=== PATIENT | male | born 1995 | race Two or more races ===

== ENCOUNTER 2025-02-02 21:38 | Emergency (ER) | payer MEDICAID, SELFPAY ==
[2025-02-02 21:39] VITALS: BMI 28.0
[2025-02-02 22:18] VITALS: BP 140/76; PULSE 100; RESP 18; TEMP 37; O2SAT 96
--- NOTE | 2025-02-02 22:23 | PD.EDRME ---
Rapid Medical Screening Exam RME Arrival date/time: 02/02/25 21:38 Chief Complaint: Abdominal Pain Time Seen by Provider: 02/02/25 22:07 Vital signs: Vital Signs Temperature 98.6 F 02/02/25 22:18 Pulse Rate 100 02/02/25 22:18 Respiratory Rate 18 02/02/25 22:18 Blood Pressure 140/76 H 02/02/25 22:18 Pulse Oximetry (%) 96 02/02/25 22:18 Oxygen Delivery Method Room Air 02/02/25 22:18 E Narrative: N/V today after etoh use. Patient reports last drink was 3 hours ago. Hx of alcohol withdrawal
[2025-02-02 23:05] LABS: Basophils # (Auto) 0.1 Thou/mm3 (0.0-0.2); Basophils % (Auto) 1 % (0-2.5); Eosinophils % (Auto) 0 % (0-10); Hematocrit 41.1 % (41.0-53.0); Hemoglobin 14.4 g/dL (13.5-16.0); Immature Granulocytes % (Auto) 0 % (0-0); Immature Granulocytes Auto 0.02 Thou/mm3 (0.00-0.00); Lymphocytes # (Auto) 3.1 Thou/mm3 (1.0-4.8); Lymphocytes % (Auto) 39 % (10-50); Mean Corpuscular Volume 86 fL (80-100); Monocytes # (Auto) 0.4 Thou/mm3 (0.0-0.8); Monocytes % (Auto) 5 % (0-12); Neutrophils # (Auto) 4.4 Thou/mm3 (1.8-7.7); Neutrophils % (Auto) 55 % (37-80); Nucleated Red Blood Cell % 0 /100 WBC (0); Platelet Count 330 Thou/mm3 (140-440); RDW Standard Deviation 46.4 fL (35.1-43.9); White Blood Count 8.1 Thou/mm3 (3.8-10.6)
--- NOTE | 2025-02-02 23:18 | EDNOTE_ITS ---
ED Abdominal Pain RME/HPI General Chief Complaint: Abdominal Pain Stated complaint: ABD PAIN Time seen by provider: 02/02/25 22:07 Arrival date/time: 02/02/25 21:38 RME / HPI RME / HPI narrative: The patient is a 29-year-old male with significant past medical history of alcohol withdrawal 2/2 alcohol abuse disorder presented with chief complaint of epigastric pain for 6 to 7 hours. He reported that his abdominal pain started around 1 PM, and around 4 PM he had his last alcoholic drink. His abdominal pain worsened, and started having nausea and vomiting and he thought of coming to the ED. He denied any headache, lightheadedness, chest pain, SOB, any changes in bowel or bladder habit, leg swelling, fever or chills. Related Data Previous Rx's ?Medication ?Instructions ?Recorded multivitamin-iron 9 mg-folic acid 1 tab PO QDAY #30 ta bs 02/28/22 400 mcg-calcium and minerals tablet (Thera M Plus (ferrous fumarate)) thiamine mononitrate (vit B1) 100 100 mg PO BID #30 ta bs 02/28/22 mg tablet (Vitamin B-1 (mononitrate)) calcium carbonate (Calcium 600) 600 mg PO QDAY #30 tab s 02/03/25 folic acid 1 mg tablet 1 mg PO QDAY #30 tabs pantoprazole 40 mg tablet,delayed 40 mg PO QDAY #28 ta bs 02/03/25 release thiamine HCl (vitamin B1) 100 mg 100 mg PO BID #60 tab s 02/03/25 tablet Allergies Allergy/AdvReac Type Severity Reaction Status Date / Time No Known Allergies Allergy Verified 03/07/24 14:42 Review of Systems Review of Systems Systems Reviewed: All systems reviewed, normal except as documented Past Medical History Past Medical History CARDIAC: Negative Congestive Heart Failure RESPIRATORY: Negative Chronic Obstructive Pulmonary Disease (COPD) GENITOURINARY: Negative Renal Disease ENDOCRINE: Negative Diabetes Mellitus Type 1 or Diabetes Mellitus Type 2 Social History SMOKING STATUS: Never smoker SUBSTANCE USE: marijuana, crack/cocaine and methamphetamine ALCOHOL: Current ALCOHOL FREQUENCY: 3 or More Drinks per Day (12 24oz beer cans daily) ALCOHOL LAST INTAKE: Hours (ago) (4 PM on 02/02/2025.) Travel History [place] RISK: No ED Exam Narrative Physical exam: General: No acute distress, Alert and Oriented x 3 HEENT: Mildly dry mucous membranes, oropharynx clear Neck: Supple, No masses, No JVD CVS: S1S2 Regular rate and rhythm, No murmurs, rubs or gallops Lungs: Clear to auscultation with no accessory use, no wheeze no rhonchi Abd: Soft, NT/ND, +BS, no organomegaly Ext: No edema, warm and well perfused Skin: No rash Psych: Mildly sober Course Quality Measures none Orders Category Date Time Status EKG (ED ONLY) *Do not use* NOW Care 02/02/25 23:26 Completed EKG (ED Only) Stat Exams 02/02/25 23:26 Ordered Alcohol, Blood Medical Stat Lab 02/02/25 22:45 Completed CBC Stat Lab 02/02/25 22:45 Completed CMP [Comprehensive Metabolic Panel] Stat Lab 02/02/25 22:45 Completed Drug Screen,Urine Stat Lab 02/02/25 23:55 Completed Lipase Stat Lab 02/02/25 22:45 Completed Magnesium Stat Lab 02/02/25 22:45 Completed Troponin I Stat Lab 02/02/25 22:45 Completed UA [Urinalysis] Stat Lab 02/02/25 23:55 Completed Calcium Carbonate Med 02/03/25 00:31 Discontinued 600 mg PO X1 ONE Folic Acid Med 02/03/25 00:40 Discontinued 1 mg PO X1 ONE Hyoscyamine Sulf [Levsin] Med 02/03/25 00:31 Discontinued 0.125 mg PO X1 ONE Pantoprazole [Protonix] Med 02/03/25 00:31 Discontinued 40 mg PO X1 ONE Thiamine [Vitamin B-1] Med 02/03/25 00:40 Discontinued 100 mg PO X1 ONE Vital Signs Vital signs: Vital Signs Temperature 98.6 F 02/02/25 22:18 Pulse Rate 100 02/02/25 22:18 Respiratory Rate 18 02/02/25 22:18 Blood Pressure 140/76 H 02/02/25 22:18 Pulse Oximetry (%) 96 02/02/25 22:18 Oxygen Delivery Method Room Air 02/02/25 22:18 Abdominal Pain MDM MDM Narrative MDM Narrative:: The patient is a 29-year-old male with significant past medical history of alcohol withdrawal 2/2 alcohol abuse disorder presented with chief complaint of epigastric pain for 6 to 7 hours. He reported that his abdominal pain started around 1 PM, and around 4 PM he had his last alcoholic drink. His abdominal pain worsened, and started having nausea and vomiting and he thought of coming to the ED. He denied any headache, lightheadedness, chest pain, SOB, any changes in bowel or bladder habit, leg swelling, fever or chills. On further interviewing, he revealed that he drinks alcohol because he thinks there are a lot of bad people in this world. However, he denies any suicidal or homicidal ideation. His vitals revealed BP 140/76, pulse 100, RR 18, temperature 98.6, saturating 98% on room air. Labs revealed hemoglobin 14.4, white count 8.1, chemistry panel revealed sodium 138, potassium 4.9, blood sugar 136, corrected calcium 8.2, AST/ALT 106/166, troponin less than 0.002, lipase 33, UA negative U tox was negative EtOH level was 366.5. The patient was given thiamine 100 Mg p.o. x 1, folic acid 1 Mg p.o. x 1, pantoprazole 40 Mg p.o. x 1, potassium nine 0.125 Mg p.o. x 1 and calcium carbonate 600 Mg p.o. x 1. He was counseled regarding alcohol cessation, but he reported that he is not ready for quitting alcohol. He was also recommended to follow-up with PCP or get a PCP in the [facility] and follow-up regarding alcohol cessation. Patient data External records reviewed:: [facility] previous records Clinical information provided by:: patient Social determinants that could affect healthcare access:: alcohol use Patient has the following chronic illnesses:: See above How is presenting disease/condition affected by chronic disease/condition?: caused by Evaluation data The following diagnostics were reviewed and interpreted by me:: lab results and EKG tracing(s) Lab and/or radiology exams considered but not ordered:: None Interpretation Summary: See above Medications / Prescriptions Medications or Prescriptions considered but not ordered:: None Medication administrations:: Medication Administration History Discontinued Medications Calcium Carbonate (Calcium Carbonate 600 Mg Tablet) 600 mg PO X1 ONE Stop: 02/03/25 00:32 Last Admin: 02/03/25 00:54 Dose: 600 mg Documented By: NAINA Folic Acid (Folic Acid 1 Mg Tablet) 1 mg PO X1 ONE Stop: 02/03/25 00:41 Last Admin: 02/03/25 00:54 Dose: 1 mg Documented By: PINOR Hyoscyamine (Hyoscyamine Sulf 0.125 Mg Tab.Subl) 0.125 mg PO X1 ONE Stop: 02/03/25 00:32 Last Admin: 02/03/25 00:53 Dose: Not Given Documented By: NAINA Non-Admin Reason: Medication Not Available Pantoprazole Sodium (Pantoprazole 40 Mg Tablet) 40 mg PO X1 ONE Stop: 02/03/25 00:32 Last Admin: 02/03/25 00:54 Dose: 40 mg Documented By: NAINA Thiamine HCl (Thiamine 100 Mg Tablet) 100 mg PO X1 ONE Stop: 02/03/25 00:41 Last Admin: 02/03/25 00:54 Dose: 100 mg Documented By: NAINA See above Consultations Consultation(s) initiated? (list below): No Diagnosis Differential diagnosis abdominal pain: gastroenteritis, pancreatitis and other (Gastritis) Most likely diagnosis given after review of the tests above:: Gastritis Admission Indicated Admission indicated?: not indicated Explain why admission is indicated or not indicated:: Patient is ambulating well, vitals stable, labs were stable. Admission Request Was there a request for admission?: No Disposition Plan Disposition Plan: Discharge Discharge Attestation Discharge Attestation: The patient and all family members were given an opportunity to ask questions and understood the discharge instructions. Discharge instructions specifically effects, indications for sooner follow up or return to the emergency department, and the expected course of current diagnosis. Patient condition: Stable Discharge Plan Plan Patient Disposition: HOME (Self Care) Prescriptions/Referrals Prescriptions/Med Rec: New thiamine HCl (vitamin B1) 100 mg tablet 100 mg PO BID Qty: 60 2RF folic acid 1 mg tablet 1 mg PO QDAY Qty: 30 0RF pantoprazole 40 mg tablet,delayed release (DR/EC) 40 mg PO QDAY Qty: 28 0RF Rx Instructions: Please take the medicine 1 hour before food. calcium carbonate [Calcium 600] 600 mg calcium (1,500 mg) tablet 600 mg PO QDAY Qty: 30 0RF No Action Thera M Plus (ferrous fumarat) 9 mg iron-400 mcg Tablet 1 tab PO QDAY Qty: 30 0RF thiamine mononitrate (vit B1) [Vitamin B-1 (mononitrate)] 100 mg Tablet 100 mg PO BID Qty: 30 0RF Referrals: No Primary/Family,Physician [Primary Care Provider] - In 1 week Problem List Clinical Impression: Alcohol intoxication, Gastritis Patient/Caregiver Discharge Instructions Discharge Activity: activity as tolerated Education Materials: ED Alcohol Intoxication, ED Gastritis (Adult) Additional Instructions: You have been discharged by Dr. Webb with the following recommendations: Please follow-up with your PCP within 1 week of discharge, or call [phone] at [facility] at [id number], [place], [address] to make an appointment. I would request PCP to consider starting the patient on antidepressant or referring to psychiatrist. You have been started on: -Pantoprazole 40 Mg daily for 28 days -Thiamine 100 mg twice daily to be continued -Folic acid 1 Mg daily for 1 month -Calcium carbonate 600 Mg daily for 1 month. Continue taking all other medicines as prescribed -Recommended to return back to emergency department if your symptoms persists or worsens Print Language: Austrian Stand Alone Forms: Robyn Award Info., Patient Portal Info Letter MD Attestation MD Attestation Attestation I, Dr. Awad, have reviewed the history, exam, and assessment of the patient. I have evaluated the patient independently and agree with the plan of care documented by the resident Dr. orozco. All diagnostic studies were reviewed and discussed. I confirm the diagnosis as documented by the resident. I was present during the Medical Decision Making for this patient. The patient?s plan of care was created between myself and the resident and consistent with our discussion of the patient?s case.
[2025-02-02 23:37] LABS: Alanine Aminotransferase 166 U/L (10-49); Albumin, Serum 4.6 gm/dL (3.5-5.0); Albumin/Globulin Ratio 1.4 (1.2-2.2); Alkaline Phosphatase 57 U/L (46-116); Anion Gap 14 (7-16); Aspartate Amino Transferase 106 U/L (0-34); BUN/Creatinine Ratio 6 Ratio (12-20); Bilirubin,Total 0.5 mg/dL (0.3-1.2); Blood Urea Nitrogen < 5 mg/dL (9-23); Calcium 8.2 mg/dL (8.3-10.6); Calcium (Corrected) 8.2 mg/dL (8.5-10.1); Carbon Dioxide 20.9 mMol/L (20.0-31.0); Chloride 103 mMol/L (98-107); Creatinine (Component) 0.9 mg/dL (0.6-1.3); Estimated Creatinine Clearance 131.7 mL/min (>60); Globulin 3.3 gm/dL (2.3-3.5); Glucose 136 mg/dL (74-106); Lipase 33 U/L (12-53); Osmolality,Calculated 274 (275-295); Potassium 4.9 mMol/L (3.4-5.1); Sodium 138 mMol/L (136-145); Total Protein 7.9 gm/dL (5.7-8.2); Troponin I < 0.002 ng/mL (0.0-0.045); eGFR > 60 See Note
[2025-02-03 00:01] LABS: Alcohol, Blood Medical 366.5 mg/dL (0-10.0)
[2025-02-03 00:11] LABS: Collection Type, Urine Clean Catch; WBC,Urine 0 /hpf (0-5)
[2025-02-03 00:16] LABS: Bilirubin,Urine Negative (Negative); Blood,Urine Negative (Negative); Clarity,Urine Clear (Clear/Hazy); Color,Urine Lt-Yellow (Lt Yel-Yel); Glucose, Urine Negative (Negative); Ketones,Urine Negative (Negative); Leukocyte Esterase,Urine Negative (Negative); Nitrite,Urine Negative (Negative); Protein,Urine Negative (Neg - Trace); RBC,Urine < 1 /hpf (0-3); Specific Gravity,Urine 1.009 (1.001-1.035); Squamous Epithelial Cell,Urine < 1 /hpf (0-5); Urobilinogen,Urine Negative mg/dL (0.0-1.0)
[2025-02-03 00:22] LABS: Amphetamine/Methamp Scrn,U Negative (Negative); Barbiturate Screen,Urine Negative (Negative); Benzodiazepines Screen,Urine Negative (Negative); Benzoylecgonine Screen, Ur Negative (Negative); Fentanyl Screen,Urine Negative (Negative); Opiate Screen,Urine Negative (Negative); THC Screen,Urine Negative (Negative)
[2025-02-03] MEDS: FOLIC ACID 1 MG TABLET PO (00:54)
[2025-02-03] MEDS: THIAMINE 100 MG TABLET PO (00:54)
[2025-02-03] MEDS: CALCIUM CARBONATE 600 MG TABLET PO (00:54)
[2025-02-03] MEDS: PANTOPRAZOLE 40 MG TABLET PO (00:54)
== END 2025-02-03 01:21 | disposition home or self-care (01) ==
PROVIDERS: Physician Assistant; Emergency Provider Student in an Organized Health Care Education/Training Program
DX: F10.129 Alcohol abuse with intoxication, unspecified (principal); K29.70 Gastritis, unspecified, without bleeding; Y90.9 Presence of alcohol in blood, level not specified
CPT/HCPCS: 36415; 80053; 80307; 80320; 81001; 83690; 83735; 84484; 85025; 93005; 99283; A9270; G0480

== ENCOUNTER 2025-03-31 10:59 | Emergency (ER) | payer MEDICAID, SELFPAY ==
--- NOTE | 2025-03-31 11:06 | PD.EDABDPN ---
ED Abdominal Pain RME/HPI General Chief Complaint: Nausea/Vomiting/Diarrhea Stated complaint: VOMITING W/ INTERMITTENT ABD PAIN X 3 WKS Time seen by provider: 03/31/25 11:04 Arrival date/time: 03/31/25 10:59 Source: patient Limitations: no limitations RME / HPI RME / HPI narrative: 3 week history of epigastic pain, nausea, and vomiting. He has a long history of ETOH abuse. Last drink was yesterday. Remote history of polysubstance abuse, states he last used drugs including meth 8-9 years ago. MD complaint: abdominal pain Related Data Previous Rx's ?Medication ?Instructions ?Recorded multivitamin-iron 9 mg-folic acid 1 tab PO QDAY #30 tabs 02/28/22 400 mcg-calcium and minerals tablet (Thera M Plus (ferrous fumarate)) thiamine mononitrate (vit B1) 100 100 mg PO BID #30 tabs 02/28/22 mg tablet (Vitamin B-1 (mononitrate)) calcium carbonate (Calcium 600) 600 mg PO QDAY #30 tabs 02/03/25 folic acid 1 mg tablet 1 mg PO QDAY #30 tabs 02/03/25 pantoprazole 40 mg tablet,delayed 40 mg PO QDAY #28 tabs 02/03/25 release thiamine HCl (vitamin B1) 100 mg 100 mg PO BID #60 tabs 02/03/25 tablet Allergies Allergy/AdvReac Type Severity Reaction Status Date / Time No Known Allergies Allergy Verified 03/31/25 11:05 Review of Systems Review of Systems Systems Reviewed: All systems reviewed, normal except as documented ED Exam General Limitations: Present no limitations General appearance: Present alert and anxious Head Head exam: Present atraumatic Eye Eye exam: Present normal appearance, PERRL and EOMI ENT ENT exam: Present normal exam, normal oropharynx and mucous membranes moist Neck Neck exam: Present normal inspection, full ROM and trachea midline Chest Chest inspection: Present normal inspection and symmetric chest wall rise Respiratory Respiratory exam: Present normal lung sounds bilaterally Cardiovascular Cardiovascular exam: Present regular rate, normal rhythm and normal heart sounds Abdominal Exam Abdominal exam: Present soft; Absent guarding or rebound Abdominal tenderness: Present RUQ and mild Extremities Exam Extremities exam: Present normal inspection and full ROM Back Exam Back exam: Present normal inspection and full ROM Neurological Exam Neurological exam: Present alert, oriented X3, normal gait and other (resting tremors present. ) Psychiatric Psychiatric exam: Present normal affect and normal mood Skin Skin exam: Present warm, dry, intact and normal color Course Quality Measures none Orders Category Date Time Status CT Screening NOW Care 03/31/25 14:13 Completed EKG (ED ONLY) *Do not use* NOW Care 03/31/25 11:[address] abdomen pelvis w con Stat Exams 03/31/25 14:13 Ordered EKG (ED Only) Stat Exams 03/31/25 11:32 Draft US abdomen limited Stat Exams 03/31/25 12:06 Completed Alcohol, Blood Medical Stat Lab 03/31/25 11:18 Completed CBC Stat Lab 03/31/25 11:18 Completed CMP [Comprehensive Metabolic Panel] Stat Lab 03/31/25 11:18 Completed Drug Screen,Urine Stat Lab 03/31/25 12:09 Completed Lipase Stat Lab 03/31/25 11:18 Completed Magnesium Stat Lab 03/31/25 11:18 Completed UA, C/S IF [Urinalysis, C/S if Indicated] Stat Lab 03/31/25 12:09 Completed Diazepam [Valium] Med 03/31/25 11:25 Discontinued 5 mg PO X1 ONE Magnesium Sulfate 1 gm Ivpb [Magnesium Sulfate Ivpb] Med 03/31/25 12:03 Discontinued 1 gm in 100 ml IV X1 Ondansetron Odt [Zofran Odt] Med 03/31/25 11:07 Discontinued 4 mg PO X1 ONE Vital Signs Vital signs: Vital Signs Temperature 98.5 F 03/31/25 11:13 Pulse Rate 75 03/31/25 11:13 Respiratory Rate 19 03/31/25 11:13 Blood Pressure 163/109 H 03/31/25 11:13 Pulse Oximetry (%) 99 03/31/25 11:13 Oxygen Delivery Method Room Air 03/31/25 11:13 Abdominal Pain MDM MDM Narrative MDM Narrative:: 29-year-old male with a history of alcoholism is here today with abdominal pain. Initially states his last drink was yesterday. Hospital staff did find an empty beer can in the garbage in his exam room. He then states he drank just prior to his arrival and had an empty can on him. His workup was concerning for a lipase of greater than 3500. This was discussed with the patient and we offered admission. We discussed the need to medically treat this. A CT was also ordered. However the patient declined further care stating he wanted to leave. We had a long detailed conversation regarding his pancreatitis, alcohol abuse, and the need to treat this medically. Patient declined further interventions. He verbalized understanding that he had acute pancreatitis, was at risk also for alcohol withdrawal, that his condition could worsening causing further endorgan dysfunction, worsening pain, and even possibly . Patient is able to answer questions appropriately. He has no slurred speech. He is not responding to any internal stimuli. He does appear to have capacity to make decisions. Case discussed with attending ER physician. Patient data External records reviewed:: [facility] previous records Clinical information provided by:: patient Social determinants that could affect healthcare access:: alcohol use Patient has the following chronic illnesses:: Alcohol abuse How is presenting disease/condition affected by chronic disease/condition?: exacerbated by Evaluation data The following diagnostics were reviewed and interpreted by me:: EKG tracing(s) (Normal sinus rhythm at [address] changes or dynamic T waves) Lab and/or radiology exams considered but not ordered:: n/a Interpretation Summary: Acute alcoholic pancreatitis Medications / Prescriptions Medications or Prescriptions considered but not ordered:: n/a Medication administrations:: Medication Administration History Discontinued Medications Diazepam (Diazepam 5 Mg Tablet) 5 mg PO X1 ONE Stop: 03/31/25 11:26 Last Admin: 03/31/25 11:39 Dose: 5 mg Documented By: MILENA Magnesium Sulfate/Dextrose (Magnesium Sulfate Ivpb) 1 gm in 100 mls @ 100 mls/hr IV X1 ONE Stop: 03/31/25 13:02 Last Infusion: 03/31/25 14:00 Dose: Infused Documented By: Admin: 03/31/25 12:18 Dose: 100 mls/hr Documented By: MILENA Ondansetron HCl (Ondansetron Odt 4 Mg Tabrap) 4 mg PO X1 ONE; Protocol Stop: 03/31/25 11:08 Last Admin: 03/31/25 11:39 Dose: 4 mg Documented By: MILENA See above Consultations Consultation(s) initiated? (list below): No Diagnosis Differential diagnosis abdominal pain: abdominal pain, constipation, gastroenteritis and pancreatitis Most likely diagnosis given after review of the tests above:: Alcoholic pancreatitis Admission Indicated Admission indicated?: indicated Admission Request Was there a request for admission?: No Disposition Plan Disposition Plan: other (specify) (Patient is leaving AGAINST MEDICAL ADVICE) Discharge Plan Plan Patient Disposition: Left Against Medical Advice Prescriptions/Referrals Prescriptions/Med Rec: No Action Thera M Plus (ferrous fumarat) 9 mg iron-400 mcg Tablet 1 tab PO QDAY Qty: 30 0RF thiamine mononitrate (vit B1) [Vitamin B-1 (mononitrate)] 100 mg Tablet 100 mg PO BID Qty: 30 0RF thiamine HCl (vitamin B1) 100 mg tablet 100 mg PO BID Qty: 60 2RF folic acid 1 mg tablet 1 mg PO QDAY Qty: 30 0RF pantoprazole 40 mg tablet,delayed release (DR/EC) 40 mg PO QDAY Qty: 28 0RF Rx Instructions: Please take the medicine 1 hour before food. calcium carbonate [Calcium 600] 600 mg calcium (1,500 mg) tablet 600 mg PO QDAY Qty: 30 0RF Referrals: No Primary/Family,Physician [Primary Care Provider] - In 1 week Problem List Clinical Impression: Alcohol withdrawal Patient/Caregiver Discharge Instructions Additional Instructions: - You have severe, acute, pancreatitis. This needs medical interventions. - Please return to emergency room anytime for any changes for further assistance. Print Language: Occitan
[2025-03-31 11:13] VITALS: BP 163/109; PULSE 75; RESP 19; TEMP 36.9; O2SAT 99; BMI 26.2
[2025-03-31 11:23] VITALS: BP 165/117; PULSE 79; RESP 18; O2SAT 99
--- NOTE | 2025-03-31 11:23 | PC.NURSE ---
PT HERE WITH C/O ABD PAIN ON AND OFF FOR 21 DAYS AND INABILITY TO SLEEP UNLESS DRINKING ETOH.
--- NOTE | 2025-03-31 11:32 | EKG_ITS ---
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
[2025-03-31 11:36] LABS: Basophils # (Auto) 0.1 Thou/mm3 (0.0-0.2); Basophils % (Auto) 1 % (0-2.5); Eosinophils # (Auto) 0.2 Thou/mm3 (0.0-0.5); Eosinophils % (Auto) 1 % (0-10); Hematocrit 44.5 % (41.0-53.0); Hemoglobin 15.5 g/dL (13.5-16.0); Immature Granulocytes Auto 0.04 Thou/mm3 (0.00-0.00); Lymphocytes # (Auto) 2.9 Thou/mm3 (1.0-4.8); Lymphocytes % (Auto) 22 % (10-50); Mean Corpuscular HGB Conc 34.8 g/dl (31.0-37.0); Mean Corpuscular Hemoglobin 30.0 pg (25.0-35.0); Mean Corpuscular Volume 86 fL (80-100); Monocytes # (Auto) 0.9 Thou/mm3 (0.0-0.8); Monocytes % (Auto) 7 % (0-12); Neutrophils # (Auto) 9.2 Thou/mm3 (1.8-7.7); Neutrophils % (Auto) 70 % (37-80); Nucleated Red Blood Cell # 0.00 Thou/mm3 (0.00-0.00); Nucleated Red Blood Cell % 0 /100 WBC (0); Platelet Count 364 Thou/mm3 (140-440); RDW Standard Deviation 44.5 fL (35.1-43.9); Red Blood Count 5.17 Miln/mm3 (4.50-5.90); White Blood Count 13.2 Thou/mm3 (3.8-10.6)
[2025-03-31] MEDS: ONDANSETRON ODT 4 MG TABRAP PO (11:39)
[2025-03-31] MEDS: DIAZEPAM 5 MG TABLET PO (11:39)
[2025-03-31 12:00] LABS: Alanine Aminotransferase 56 U/L (10-49); Albumin, Serum 4.7 gm/dL (3.5-5.0); Albumin/Globulin Ratio 1.4 (1.2-2.2); Alcohol, Blood Medical 90.3 mg/dL (0-10.0); Alkaline Phosphatase 76 U/L (46-116); Anion Gap 9 (7-16); Aspartate Amino Transferase 48 U/L (0-34); BUN/Creatinine Ratio 6 Ratio (12-20); Bilirubin,Total 0.5 mg/dL (0.3-1.2); Blood Urea Nitrogen 5 mg/dL (9-23); Calcium 9.3 mg/dL (8.3-10.6); Calcium (Corrected) 9.3 mg/dL (8.5-10.1); Carbon Dioxide 27.1 mMol/L (20.0-31.0); Chloride 101 mMol/L (98-107); Creatinine (Component) 0.9 mg/dL (0.6-1.3); Estimated Creatinine Clearance 121.1 mL/min (>60); Globulin 3.3 gm/dL (2.3-3.5); Glucose 123 mg/dL (74-106); Magnesium 1.4 mg/dL (1.6-2.6); Osmolality,Calculated 272 (275-295); Potassium 3.8 mMol/L (3.4-5.1); Sodium 137 mMol/L (136-145); Total Protein 8.0 gm/dL (5.7-8.2); eGFR > 60 See Note
[2025-03-31 12:01] VITALS: BP 146/108; PULSE 69; RESP 21; TEMP 36.8; O2SAT 97
--- NOTE | 2025-03-31 12:06 | XR_ITS ---
Examination: Abdomen sonogram, Limited Date and time of exam: Pain nausea vomiting beginning 3 weeks ago Date and time: April 10, 2025, 12:48 PM Technique: Real-time trejo scale transabdominal sonographic images of the upper abdomen obtained. Findings: Normal gallbladder. Normal common bile duct 0.2 cm Pancreas is obscured by bowel gas Mild hepatomegaly 16.6 cm fatty infiltration Normal hepatopedal portal venous flow Patent IVC Impression: Normal gallbladder Normal common bile duct
[2025-03-31 12:36] LABS: Collection Type, Urine Voided; RBC,Urine 0 /hpf (0-3); Squamous Epithelial Cell,Urine 0 /hpf (0-5); WBC,Urine 0 /hpf (0-5)
[2025-03-31 13:12] LABS: Bacteria,Urine Rare; Bilirubin,Urine Negative (Negative); Blood,Urine Negative (Negative); Clarity,Urine Clear (Clear/Hazy); Color,Urine Lt-Yellow (Lt Yel-Yel); Culture Indicated,Urine Not Indicated; Glucose, Urine Negative (Negative); Ketones,Urine Negative (Negative); Leukocyte Esterase,Urine Negative (Negative); Nitrite,Urine Negative (Negative); PH,Urine 5.5 (5.0-7.0); Protein,Urine Trace (Neg - Trace); Specific Gravity,Urine 1.017 (1.001-1.035); Urobilinogen,Urine Negative mg/dL (0.0-1.0)
[2025-03-31 13:26] LABS: Amphetamine/Methamp Scrn,U Negative (Negative); Barbiturate Screen,Urine Negative (Negative); Benzodiazepines Screen,Urine Negative (Negative); Benzoylecgonine Screen, Ur Negative (Negative); Fentanyl Screen,Urine Negative (Negative); Opiate Screen,Urine Negative (Negative); THC Screen,Urine Negative (Negative)
[2025-03-31 14:00] VITALS: BP 128/98; PULSE 83; RESP 19; O2SAT 97
[2025-03-31 14:07] LABS: Lipase > 3500 U/L (12-53)
--- NOTE | 2025-03-31 14:16 | PC.NURSE ---
when patient was placed in room patient throw away an empty beer can.
--- NOTE | 2025-03-31 14:47 | PC.NURSE ---
Patient requesting to leave against medical advice. Patient alert and oriented x 4. Patient states he is not ready to quit drinking at this time. Per Mary Reina PA states patient has the mental capacity to make his own decrions. Educated patient on risks of leaving the ER without completing his treatment including possible , patient verbalizes understanding and states I wanna leave AMA form signed and placed on chart.
== END 2025-03-31 14:47 | disposition left against medical advice (07) ==
PROVIDERS: Emergency Provider Physician Assistant Medical
DX: F10.939 Alcohol use, unspecified with withdrawal, unspecified (principal); Z53.29 Procedure and treatment not carried out because of patient's decision for other reasons
CPT/HCPCS: 36415; 76705; 80053; 80307; 80320; 81001; 83690; 83735; 85025; 93005; 96365; 96366; 99283; J3475; Q0162; A9270; G0480

== ENCOUNTER 2025-04-04 22:32 | Inpatient (IN) | payer MEDICAID, SELFPAY ==
[2025-04-04 22:35] VITALS: BP 126/86; PULSE 90; RESP 18; TEMP 36.9; O2SAT 97; BMI 27.3
--- NOTE | 2025-04-04 23:41 | EDNOTE_ITS ---
ED Alcohol RME/HPI General Chief Complaint: General Adult/Misc Complain Stated Complaint: ALCOHOL INTOXICATION Time Seen by Provider: 04/04/25 23:15 Arrival date/time: 04/04/25 22:32 RME / HPI RME / HPI narrative: This section includes all my notes and documentations, including HPI, PE, and ED course. Noam Kim MD HPI: 29yo male here for possible abdominal pain and vomiting. Difficult to understand the patient, probably due to alcohol intoxication. Patient was here several days ago with alcohol intoxication and acute pancreatitis with lipase over 3500. Patient left AMA. Reports no SI or HI or hallucinations. No other complaints. ROS: All negative except as documented in HPI. Physical Exam: General: Appears severely intoxicated. Eyes: Conjunctivae and lids clear. PERRL. EOMI. ENT: No nasal congestion. Neck: Supple. Heart: Sinus tachycardia noted. Lungs: No respiratory distress. Good air movement. No rhonchi, wheezing, rales. Abdomen: Soft with tenderness, difficult to localize. Decreased bowel sounds. No obvious distension. No obvious rebound or guarding. Skin: Warm and dry. Neuro: Difficult assessment due to probable severe intoxication. I reviewed all diagnostic test results. My review of the CT abdomen pelvis report is acute pancreatitis. Blood tests remarkable for Blood Alcohol 405. At this point, diagnoses include pancreatitis and alcohol intoxication. Treatment here included NS, Ativan, Zofran, and Thiamine. I discussed the case with our hospitalist. About the presentation and exam and diagnostics and treatments here. And need of further care in the hospital. Will accept the patient. Noam Kim MD Related Data Home Medications ?Medication ?Instructions ?Recorded ?Confirmed No Known Home Medications 04/05/2503/19 Allergies Allergy/AdvReac Type Severity Reaction Status Date / Time No Known Allergies Allergy Verified 04/04/25 22:38 Review of Systems Review of Systems Systems Reviewed: All systems reviewed, normal except as documented Past Medical History Past Medical History NEUROLOGIC: Positive Neurological Disorders (DT'S) CARDIAC: Negative Congestive Heart Failure RESPIRATORY: Negative Chronic Obstructive Pulmonary Disease (COPD) GENITOURINARY: Negative Renal Disease ENDOCRINE: Negative Diabetes Mellitus Type 1 or Diabetes Mellitus Type 2 Social History SMOKING STATUS: Never smoker SUBSTANCE USE: marijuana, crack/cocaine and methamphetamine ED Exam Narrative Physical exam: As noted in HPI. Course Quality Measures none Orders Category Date Time Status Bedside COVID-19 Antigen Test NOW Care 04/04/25 23:44 Active Bedside Influenza A&B Antigen Test NOW Care 04/04/25 23:44 Completed Saline [Insert IV] NOW Care 04/04/25 23:[address] abdomen pelvis wo con Stat Exams 04/04/25 23:45 Taken Acetaminophen Stat Lab 04/04/25 23:59 Completed Alcohol, Blood Medical Stat Lab 04/04/25 23:59 Completed Ammonia Stat Lab 04/04/25 23:59 Completed Amylase Stat Lab 04/04/25 23:59 Completed BNP [B-Type Natriuretic Peptide] Stat Lab 04/04/25 23:59 Completed Beta Hydroxybutyrate Stat Lab 04/04/25 23:59 Completed Bilirubin,Direct Stat Lab 04/04/25 23:59 Completed Blood Culture (Lab) Stat Lab 04/04/25 23:59 Received CBC Stat Lab 04/04/25 23:59 Completed CK [Creatine Kinase] Stat Lab 04/04/25 23:59 Completed CMP [Comprehensive Metabolic Panel] Stat Lab 04/04/25 23:59 Completed CRP [C-Reactive Protein] Stat Lab 04/04/25 23:59 Completed Drug Screen,Urine Stat Lab 04/05/25 02:21 Completed ESR [Sed Rate (ESR)] Stat Lab 04/04/25 23:59 Completed Free T4 (Free Thyroxine) Stat Lab 04/04/25 23:59 Completed Lactate (Lactic Acid) Stat Lab 04/04/25 23:59 Completed Lipase Stat Lab 04/04/25 23:59 Completed Magnesium Stat Lab 04/04/25 23:59 Completed PT [Prothrombin Time with INR] Stat Lab 04/04/25 23:59 Completed PTT [Partial Thromboplastin Time] Stat Lab 04/04/25 23:59 Completed Procalcitonin Stat Lab 04/04/25 23:59 Completed Salicylate Stat Lab 04/04/25 23:59 Completed TSH [Thyroid Stimulating Hormone] Stat Lab 04/04/25 23:59 Completed VBG [Venous Blood Gas] Stat Lab 04/04/25 23:59 Completed LORazepam [Ativan Inj] Med 04/04/25 23:44 Discontinued 2 mg IVP X1 ONE Ondansetron Inj [Zofran Inj] Med 04/04/25 23:44 Discontinued 4 mg IVP X1 ONE Sodium Chloride 0.9% 1000 ml [Ns] 1,000 ml Med 04/04/25 23:44 Discontinued IV 999 mls/hr Thiamine Inj [Vitamin B-1 Inj] Med 04/04/25 23:44 Discontinued 100 mg IVP X1 ONE Vital Signs Vital signs: Vital Signs Temperature 98.5 F 04/04/25 22:35 Pulse Rate 90 04/04/25 22:35 Respiratory Rate 18 04/04/25 22:35 Blood Pressure 126/86 H 04/04/25 22:35 Pulse Oximetry (%) 97 04/04/25 22:35 Oxygen Delivery Method Room Air 04/04/25 22:35 Discharge Plan Plan Patient Disposition: Admit Acute Care w/in Hospital Problem List Clinical Impression: Pancreatitis, Alcohol intoxication Alcohol MDM Narrative MDM Narrative: 29yo male here for possible abdominal pain and vomiting. Difficult to understand the patient, probably due to alcohol intoxication. Patient was here several days ago with alcohol intoxication and acute pancreatitis with lipase over 3500. Patient left AMA. Reports no SI or HI or hallucinations. No other complaints. Patient data External records reviewed:: [facility] previous records (Per chart review, patient was seen here on 03/31/25 for alcohol withdrawal.) Clinical information provided by:: patient Social determinants that could affect healthcare access:: alcohol use Patient has the following chronic illnesses:: none How is presenting disease/condition affected by chronic disease/condition?: no chronic disease Evaluation data The following diagnostics were reviewed and interpreted by me:: lab results and radiology exam(s) Lab and/or radiology exams considered but not ordered:: none Interpretation Summary: I reviewed all diagnostic test results. My review of the CT abdomen pelvis report is acute pancreatitis. Blood tests remarkable for Blood Alcohol 405. Medications / Prescriptions Medications or Prescriptions considered but not ordered:: none Medication administrations:: Medication Administration History Chlordiazepoxide HCl (Chlordiazepoxide Hcl 25 Mg Capsule) 25 mg PO Q6HR PRN PRN Reason: CIWA >9 Stop: 04/08/25 02:11 Cyanocobalamin (Cyanocobalamin 500 Mcg Tablet) 500 mcg PO QDAY [facility] Stop: 05/05/25 08:59 Folic Acid (Folic Acid 1 Mg Tablet) 1 mg PO QDAY [facility] Stop: 05/05/25 08:59 Lactated Ringer's (Lactated Ringers) 1,000 mls @ 150 mls/hr IV .Q6H40M [facility] Stop: 04/05/25 15:51 Last Admin: 04/05/25 03:11 Dose: 150 mls/hr Documented By: Ketorolac Tromethamine (Ketorolac Inj 30 Mg/Ml Vial) 30 mg IVP Q6H PRN PRN Reason: PAIN SCALE 4-6 (Moderate Stop: 04/10/25 02:21 Lorazepam (Lorazepam 0.5 Mg Tablet) 1 mg PO Q4HR PRN PRN Reason: CIWA SCORE 7-11 Stop: 04/10/25 02:10 Lorazepam (Lorazepam 0.5 Mg Tablet) 0.5 mg PO Q4HR PRN PRN Reason: CIWA Score 2-6 Stop: 04/10/25 02:10 Lorazepam (Lorazepam 0.5 Mg Tablet) 2 mg PO Q4HR PRN PRN Reason: CIWA SCORE 12-15 Stop: 04/10/25 02:10 Morphine Sulfate (Morphine Sulf Inj 10 Mg/Ml Vial) 2 mg IVP Q1H PRN PRN Reason: PAIN SCALE 7-10 (Severe Ondansetron HCl (Ondansetron Inj 2 Mg/Ml Inj 2 Ml) 4 mg IVP Q6H PRN; Protocol PRN Reason: NAUSEA OR VOMITING Stop: 05/05/25 02:04 Thiamine HCl (Thiamine 100 Mg Tablet) 100 mg PO QDAY [facility] Stop: 05/05/25 08:59 Discontinued Medications Sodium Chloride (Ns) 1,000 mls @ 999 mls/hr IV .Q1H1M ONE Stop: 04/05/25 00:44 Last Infusion: 04/05/25 01:45 Dose: Infused Documented By: Admin: 04/05/25 00:17 Dose: 999 mls/hr Documented By: Lorazepam (Lorazepam 2 Mg/Ml Vial) 2 mg IVP X1 ONE Stop: 04/04/25 23:45 Last Admin: 04/05/25 00:18 Dose: 2 mg Documented By: Ondansetron HCl (Ondansetron Inj 2 Mg/Ml Inj 2 Ml) 4 mg IVP X1 ONE; Protocol Stop: 04/04/25 23:45 Last Admin: 04/05/25 00:19 Dose: 4 mg Documented By: Thiamine HCl (Thiamine Inj 100 Mg/Ml Vial 2 Ml) 100 mg IVP X1 ONE Stop: 04/04/25 23:45 Last Admin: 04/05/25 00:18 Dose: 100 mg Documented By: Tramadol HCl (Tramadol Hcl 50 Mg Tablet) 50 mg PO Q4HR PRN PRN Reason: PAIN Stop: 04/10/25 02:21 From me, patient received NS, Ativan, Zofran, Thiamine. Consultations Consultation(s) initiated? (list below): Yes Consultation #1 (Physician, Specialty, Details): I discussed the case with our hospitalist. About the presentation and exam and diagnostics and treatments here. And need of further care in the hospital. Will accept the patient. Diagnosis Differential diagnosis alcohol: alcohol withdrawal delirium, hypomagnesemia, alcohol intoxication, alcohol ketoacidosis, alcohol withdrawal syndrome and alcohol withdrawal seizure Most likely diagnosis given after review of the tests above:: Acute pancreatitis and alcohol intoxication. Admission Indicated Admission indicated?: indicated Explain why admission is indicated or not indicated:: Acute pancreatitis Admission Request Was there a request for admission?: Yes Admission Attestation Admission request attestation: Discussed case with Hospitalist service regarding admission. Discussed patients ED course, exam findings, labs, and radiology results. The Hospitalist [agrees] to accept the patient for admission. Disposition Plan Disposition Plan: Admit
--- NOTE | 2025-04-04 23:45 | XR_ITS ---
Examination: CT abdomen and pelvis without contrast. Coronal 3-D reconstructions. Sagittal 2-D reconstructions. Date and time of exam:April 05, 2025 0009 hours Indications long onset abdominal pain beginning 2 weeks ago CTDI: vol (mGy): 7.35 DLP: (mGycm): 755 Technique: Axial images of the abdomen have been obtained, 3 mm slice thickness Intravenous contrast material has not been administered. Low dose protocols were performed. One or more of the following dose reduction techniques were used; automated exposure control, adjustment of the mA and/or KV according to patient size, use of iterative reconstruction technique. Findings: No focal liver or splenic lesions No gallstones Diffusely enlarged pancreas with surrounding edema No pseudocyst No renal or ureteral calculi, no hydronephrosis Normal appendix No prostatomegaly Urinary bladder intact Osseous structures intact IMPRESSION: Acute pancreatitis
[2025-04-05] VITALS (9 sets, daily range): BP systolic 111–146; BP diastolic 77–111; PULSE 55–106; RESP 14–18; TEMP 36.2–37; O2SAT 93–100; BMI 27.3
[2025-04-05] MEDS: SODIUM CHLORIDE 0.9% 1000 ML 1,000 ML 999 ML IV (00:17)
[2025-04-05] MEDS: THIAMINE INJ 100 MG/ML VIAL 2 ML IVP (00:18)
[2025-04-05] MEDS: LORazepam 2 MG/ML VIAL IVP ×3 (00:18→20:50)
[2025-04-05 00:19] LABS: Base Excess, Venous 1 (-3-3); Lactate (Lactic Acid) 1.8 mMol/L (0.4-2.0); O2 Saturation, Venous 94 % (96-97); PCO2, Venous 38 mmHg (36-56); PO2, Venous 70 mmHg (15-58); pH, Venous 7.43 (7.33-7.66)
[2025-04-05] MEDS: ONDANSETRON INJ 2 MG/ML INJ 2 ML 4 MG IVP (00:19)
[2025-04-05 00:27] LABS: Basophils # (Auto) 0.1 Thou/mm3 (0.0-0.2); Basophils % (Auto) 1 % (0-2.5); Beta Hydroxybutyrate 0.0 mmol/L (<0.6); Eosinophils # (Auto) 0.4 Thou/mm3 (0.0-0.5); Eosinophils % (Auto) 6 % (0-10); Hematocrit 38.9 % (41.0-53.0); Hemoglobin 14.0 g/dL (13.5-16.0); Immature Granulocytes Auto 0.02 Thou/mm3 (0.00-0.00); Lymphocytes # (Auto) 2.9 Thou/mm3 (1.0-4.8); Lymphocytes % (Auto) 45 % (10-50); Mean Corpuscular HGB Conc 36.0 g/dl (31.0-37.0); Mean Corpuscular Hemoglobin 30.0 pg (25.0-35.0); Mean Corpuscular Volume 83 fL (80-100); Monocytes # (Auto) 0.5 Thou/mm3 (0.0-0.8); Monocytes % (Auto) 7 % (0-12); Neutrophils # (Auto) 2.6 Thou/mm3 (1.8-7.7); Neutrophils % (Auto) 40 % (37-80); Nucleated Red Blood Cell # 0.00 Thou/mm3 (0.00-0.00); Nucleated Red Blood Cell % 0 /100 WBC (0); Platelet Count 238 Thou/mm3 (140-440); RDW Standard Deviation 43.8 fL (35.1-43.9); Red Blood Count 4.67 Miln/mm3 (4.50-5.90); White Blood Count 6.4 Thou/mm3 (3.8-10.6)
[2025-04-05 00:57] LABS: B-Type Natriuretic Peptide < 20 pg/mL (0-100); INR 1.0 (0.9-1.3); Partial Thromboplastin Time 28.2 Seconds (22.0-36.0); Prothrombin Time 10.9 Seconds (9.0-12.2)
[2025-04-05 00:58] LABS: Ammonia 11 uMol/L (11-32)
--- NOTE | 2025-04-05 00:59 | PC.NURSE ---
PT AAO X 4, PT RESP EVEN AND UNLABORED. PT PRESENTS TO ED WITH C/O ETOH, PT DENIES SI OR HI TO THIS NURSE AND TO DR RINALDI. PT STATES HIS LAST DRINK WAS 04/04/25 ABOUT 1 PM.
[2025-04-05 01:01] LABS: Acetaminophen < 2.0 mcg/mL (10.0-20.0); Alanine Aminotransferase 32 U/L (10-49); Albumin, Serum 4.3 gm/dL (3.5-5.0); Albumin/Globulin Ratio 1.4 (1.2-2.2); Alkaline Phosphatase 70 U/L (46-116); Amylase 87 U/L (30-118); Anion Gap 10 (7-16); Aspartate Amino Transferase 37 U/L (0-34); BUN/Creatinine Ratio 6 Ratio (12-20); Bilirubin,Direct 0.1 mg/dL (0.0-0.3); Bilirubin,Total 0.3 mg/dL (0.3-1.2); Blood Urea Nitrogen < 5 mg/dL (9-23); C-Reactive Protein 0.6 mg/dL (0.0-0.9); Calcium 8.7 mg/dL (8.3-10.6); Calcium (Corrected) 8.7 mg/dL (8.5-10.1); Carbon Dioxide 23.4 mMol/L (20.0-31.0); Chloride 105 mMol/L (98-107); Creatine Kinase 174 U/L (34-171); Creatinine (Component) 0.8 mg/dL (0.6-1.3); Estimated Creatinine Clearance 131.8 mL/min (>60); Free T4 (Free Thyroxine) 1.20 ng/dL (0.89-1.76); Globulin 3.1 gm/dL (2.3-3.5); Glucose 116 mg/dL (74-106); Lipase 52 U/L (12-53); Magnesium 2.0 mg/dL (1.6-2.6); Osmolality,Calculated 273 (275-295); Potassium 3.8 mMol/L (3.4-5.1); Procalcitonin < 0.04 ng/ml (0.0-0.49); Salicylate < 3.0 mg/dL; Sodium 138 mMol/L (136-145); Thyroid Stimulating Hormone 2.66 uIU/mL (0.55-4.78); Total Protein 7.4 gm/dL (5.7-8.2); eGFR > 60 See Note
[2025-04-05 01:03] LABS: Alcohol, Blood Medical 405.0 mg/dL (0-10.0)
[2025-04-05 01:05] LABS: Sed Rate (ESR) 19 mm/hr (0-15)
--- NOTE | 2025-04-05 01:15 | PRELIM_ITS ---
CT scan of the abdomen and pelvis without intravenous contrast (axial sections with sagittal and coronal reformats) April 05, 2025 at 0009 hours Clinical History: Abdominal pain. Comparison: None. Findings: The lung bases are clear. The liver, gallbladder, spleen, kidneys and adrenals are unremarkable on this noncontrast study. Peripancreatic fat stranding. No pancreatic ductal dilatation. No evidence of bowel obstruction. The appendix is within normal limits. There is no mesenteric or retroperitoneal adenopathy. The urinary bladder is unremarkable. There is no free fluid or free air. The osseous structures are unremarkable. Impression: Acute pancreatitis. Report Electronically Signed By: Isaiah Hwang 04/05/2025 1:14:42 AM [EST]
[2025-04-05 02:49] LABS: Collection Type, Urine Clean Catch; Squamous Epithelial Cell,Urine 0 /hpf (0-5); WBC,Urine 0 /hpf (0-5)
[2025-04-05 02:59] LABS: Amphetamine/Methamp Scrn,U Negative (Negative); Barbiturate Screen,Urine Negative (Negative); Benzodiazepines Screen,Urine Negative (Negative); Benzoylecgonine Screen, Ur Negative (Negative); Fentanyl Screen,Urine Negative (Negative); Opiate Screen,Urine Negative (Negative); THC Screen,Urine Negative (Negative)
[2025-04-05] MEDS: RINGERS LACTATED 1000 ML 1,000 ML 150 ML IV ×2 (03:11→10:07)
--- NOTE | 2025-04-05 03:16 | PC.NURSE ---
0310 REPORT CALLED TO MAHOGANY DORSEY AT THIS TIME.
[2025-04-05 03:21] LABS: Vitamin B12 397 pg/mL (211-911)
--- NOTE | 2025-04-05 04:13 | ESHP_ITS ---
Documentation for date of: 04/05/25 [facility] History of Present Illness History of present illness: Sukhiwnder Bey is a 29-year-old M with a PMH of alcohol use disorder, alcohol withdrawal without seizures, methamphetamine use, and left knee tumor since childhood who presents today with acute pancreatitis and alcohol intoxication. Patient was inebriated during the interview and had difficulty understanding questions and answering them in a coherent manner. From what this report writer could gather, he did not know why he was in the hospital but thinks that his dad sent him here. He said that he had no current pain or complaints except for not being able to sleep for 5 days which is what caused him to drink so that he could put himself to sleep. In the ED, vitals showed: BP 126/86 HR 90 RR 18 Temp 98.5 SpO2 97% on room air ED Course: CBC was unremarkable. CMP showed slightly elevated creatine kinase 174 but was otherwise unremarkable. Utox showed a significantly elevated urine ethyl alcohol 405.0. Imaging: Noncontrast CTAP, on preliminary read, showed acute pancreatitis. In the ED, patient was given 1 L NS bolus x1, IV lorazepam 2 mg x1, IV thiamine 100 mg x1, IV Zofran 4 mg x1, and started on 1 L LR maintenance fluid at 150 mL/hr x2. Patient was admitted for the work-up and management of acute pancreatitis and alcohol withdrawal symptoms. Review of Systems Review of Systems Systems Reviewed: All systems reviewed, normal except as documented ROS Unobtainable: unobtainable due to mental status (patient was inebriated and uncooperative during questioning) Past Medical History Past Medical History NEUROLOGIC: Positive Neurological Disorders CARDIAC: Negative Congestive Heart Failure RESPIRATORY: Negative Chronic Obstructive Pulmonary Disease (COPD) GENITOURINARY: Negative Renal Disease ENDOCRINE: Negative Diabetes Mellitus Type 1 or Diabetes Mellitus Type 2 Social History SMOKING STATUS: Never smoker SUBSTANCE USE: marijuana, crack/cocaine and methamphetamine ALCOHOL: Current ALCOHOL FREQUENCY: 3 or More Drinks per Day (12 24oz beer cans daily) ALCOHOL LAST INTAKE: Hours (ago) and Days (ago) Travel History EBOLA RISK: No Past Medical History Comments PMH COMMENT: Unable to be obtained due to lack of patient cooperation and/or inebriated status. Exam Vital Signs Temp Pulse Resp BP Pulse Ox O2 Del Method 98.6 F 80 14 120/77 100 Room Air 04/05/25 03:27 04/05/25 03:27 04/05/25 03:27 04/05/25 03:27 04/05/25 03:27 04/05/25 03:27 Narrative Exam Physical Exam: General: Seemingly drunk and drowsy, no acute distress. Skin: Warm, dry, intact, no obvious rash. Head: Normocephalic, atraumatic. Eye: Normal conjunctiva, PERRL. Throat: Oral mucosa moist. No obvious lesions in oropharynx. Cardiovascular: Regular rate and rhythm, no murmur, +S1/S2. Respiratory: Lungs are clear to auscultation, respirations unlabored, no crackles, no wheezing. Gastrointestinal: Tenderness to palpation of RUQ and RLQ abdomen. Soft, non- distended. No guarding or rebound tenderness. Extremities: No edema, no cyanosis, no clubbing. 2+ radial pulse bilaterally, 2+ posterior tibial pulse bilaterally. Neuro: No asterixis. No focal deficits observed. Conversant, moving all extremities. No overt cerebellar signs/incoordination. Psychiatric: Slurred speech, at times uncooperative, disorganized speech. Results: Labs 04/04/25 23:59 04/04/25 23:59 Labs: Short CBC 04/04/25 Range/Units 23:59 WBC 6.4 D (3.8-10.6) Thou/mm3 Hgb 14.0 (13.5-16.0) g/dL Hct 38.9 L (41.0-53.0) % Plt Count 238 D (140-440) Thou/mm3 BMP 04/04/25 23:59 Sodium 138 Potassium 3.8 Chloride 105 Carbon Dioxide 23.4 BUN < 5 L Creatinine 0.8 Glucose 116 H Calcium 8.7 Cardiac Enzymes 04/04/25 Range/Units 23:59 Total Creatine Kinase 174 H (34-171) U/L Liver Function 04/04/25 Range/Units 23:59 Total Bilirubin 0.3 (0.3-1.2) mg/dL Direct Bilirubin 0.1 (0.0-0.3) mg/dL AST 37 H (0-34) U/L ALT 32 (10-49) U/L Alkaline Phosphatase 70 (46-116) U/L Albumin 4.3 (3.5-5.0) gm/dL ABG Interpretation ABG results: 04/04/25 23:59 VBG pH 7.43 VBG pCO2 38 VBG pO2 70 H VBG Base Excess 1 Quality Measures Quality Measures none Medications Home Medications and Allergies Home Medications ?Medication ?Instructions ?Recorded ?Confirmed ?Type No Known Home Medications 04/05/2503/19 History Allergies Allergy/AdvReac Type Severity Reaction Status Date / Time No Known Allergies Allergy Verified 04/04/25 22:38 Visit Medications Chlordiazepoxide HCl (Chlordiazepoxide Hcl 25 Mg Capsule) 25 mg PO Q6HR PRN PRN Reason: CIWA >9 Stop: 04/08/25 02:11 Cyanocobalamin (Cyanocobalamin 500 Mcg Tablet) 500 mcg PO QDAY [facility] Stop: 05/05/25 08:59 Folic Acid (Folic Acid 1 Mg Tablet) 1 mg PO QDAY [facility] Stop: 05/05/25 08:59 Lactated Ringer's (Lactated Ringers) 1,000 mls @ 150 mls/hr IV .Q6H40M [facility] Stop: 04/05/25 15:51 Last Admin: 04/05/25 03:11 Dose: 150 mls/hr Ketorolac Tromethamine (Ketorolac Inj 30 Mg/Ml Vial) 30 mg IVP Q6H PRN PRN Reason: PAIN SCALE 4-6 (Moderate Stop: 04/10/25 02:21 Lorazepam (Lorazepam 0.5 Mg Tablet) 1 mg PO Q4HR PRN PRN Reason: CIWA SCORE 7-11 Stop: 04/10/25 02:10 Lorazepam (Lorazepam 0.5 Mg Tablet) 0.5 mg PO Q4HR PRN PRN Reason: CIWA Score 2-6 Stop: 04/10/25 02:10 Lorazepam (Lorazepam 0.5 Mg Tablet) 2 mg PO Q4HR PRN PRN Reason: CIWA SCORE 12-15 Stop: 04/10/25 02:10 Morphine Sulfate (Morphine Sulf Inj 10 Mg/Ml Vial) 2 mg IVP Q1H PRN PRN Reason: PAIN SCALE 7-10 (Severe Ondansetron HCl (Ondansetron Inj 2 Mg/Ml Inj 2 Ml) 4 mg IVP Q6H PRN; Protocol PRN Reason: NAUSEA OR VOMITING Stop: 05/05/25 02:04 Thiamine HCl (Thiamine 100 Mg Tablet) 100 mg PO QDAY [facility] Stop: 05/05/25 08:59 Discontinued Medications Sodium Chloride (Ns) 1,000 mls @ 999 mls/hr IV .Q1H1M ONE Stop: 04/05/25 00:44 Last Infusion: 04/05/25 01:45 Dose: Infused Lorazepam (Lorazepam 2 Mg/Ml Vial) 2 mg IVP X1 ONE Stop: 04/04/25 23:45 Last Admin: 04/05/25 00:18 Dose: 2 mg Ondansetron HCl (Ondansetron Inj 2 Mg/Ml Inj 2 Ml) 4 mg IVP X1 ONE; Protocol Stop: 04/04/25 23:45 Last Admin: 04/05/25 00:19 Dose: 4 mg Thiamine HCl (Thiamine Inj 100 Mg/Ml Vial 2 Ml) 100 mg IVP X1 ONE Stop: 04/04/25 23:45 Last Admin: 04/05/25 00:18 Dose: 100 mg Tramadol HCl (Tramadol Hcl 50 Mg Tablet) 50 mg PO Q4HR PRN PRN Reason: PAIN Stop: 04/10/25 02:21 Assessment & Plan Assessment Sukhwinder Bey is a 29-year-old M with a PMH of alcohol use disorder, alcohol withdrawal without seizures, methamphetamine use, and left knee tumor since childhood who presents today with acute pancreatitis and alcohol intoxication. Patient was admitted for the work-up and management of acute pancreatitis and alcohol withdrawal symptoms. #Acute pancreatitis #likely 2/2 acute alcohol intoxication Noncontrast CTAP showed acute pancreatitis and patient endorses tenderness to palpation of the RUQ and RLQ abdomen. In the setting of patient's elevated urine ethyl alcohol level of 405.0, current suspicion is that the acute pancreatitis is alcohol-induced. Patient unable to tell us when his last drink was AST and creatine kinase are only slightly elevated (37 and 174, respectively) Plan: -Moderate fluid infusion with 1 L LR maintenance fluid at 150 mL/hr x2. -Pain regimen: IV Toradol 30 mg q6HR prn (pain 4-7) and IV morphine 2 mg q1HR prn (pain 7-10) -Placed on NPO (advance diet as tolerated) -Patient has been placed on CIMI protocol -Monitor for visual or auditory hallucinations -Started IV Zofran 40 mg prn for nausea Hospital Management: Disposition: being managed for acute pancreatitis and on CIWA protocol Diet: NPO (advance diet as tolerated) GI Prophylaxis: none Bowel Prophylaxis: none DVT Prophylaxis: SCDs CODE STATUS: Full Code I have examined the patient and conferred with my attending, Dr. Roman, and my senior resident, Dr. Wyatt, regarding them. Param Rebolledo, DO PGY-1 Internal Medicine Attending Provider Attestation/Addendum I reviewed labs, imaging, EKG, home medications and prior available records. Face to face evaluation was performed by me. I have personally examined the patient and discussed assessment and plan with the IM team. I reviewed the resident note and agree with the plan with exceptions as below. Epigastric pain Alcohol abuse Alcoholic pancreatitis Noncompliance Continue IV fluids Management of pain/nausea as needed Counseled the patient regarding the importance of alcohol cessation Start thiamine folic acid. Start CIWA assessment
[2025-04-05 04:27] LABS: Bilirubin,Urine Negative (Negative); Blood,Urine Negative (Negative); Clarity,Urine Clear (Clear/Hazy); Color,Urine Colorless (Lt Yel-Yel); Glucose, Urine Negative (Negative); Ketones,Urine Negative (Negative); Leukocyte Esterase,Urine Negative (Negative); Nitrite,Urine Negative (Negative); PH,Urine 6.5 (5.0-7.0); Protein,Urine Negative (Neg - Trace); RBC,Urine 1 /hpf (0-3); Specific Gravity,Urine 1.007 (1.001-1.035); Urobilinogen,Urine Negative mg/dL (0.0-1.0)
[2025-04-05 06:23] LABS: Basophils # (Auto) 0.1 Thou/mm3 (0.0-0.2); Basophils % (Auto) 2 % (0-2.5); Eosinophils # (Auto) 0.1 Thou/mm3 (0.0-0.5); Eosinophils % (Auto) 2 % (0-10); Hematocrit 40.2 % (41.0-53.0); Hemoglobin 13.8 g/dL (13.5-16.0); Immature Granulocytes Auto 0.01 Thou/mm3 (0.00-0.00); Lymphocytes # (Auto) 2.3 Thou/mm3 (1.0-4.8); Lymphocytes % (Auto) 45 % (10-50); Mean Corpuscular HGB Conc 34.3 g/dl (31.0-37.0); Mean Corpuscular Hemoglobin 29.9 pg (25.0-35.0); Mean Corpuscular Volume 87 fL (80-100); Monocytes # (Auto) 0.3 Thou/mm3 (0.0-0.8); Monocytes % (Auto) 6 % (0-12); Neutrophils # (Auto) 2.3 Thou/mm3 (1.8-7.7); Neutrophils % (Auto) 46 % (37-80); Nucleated Red Blood Cell # 0.00 Thou/mm3 (0.00-0.00); Nucleated Red Blood Cell % 0 /100 WBC (0); Platelet Count 246 Thou/mm3 (140-440); RDW Standard Deviation 46.2 fL (35.1-43.9); Red Blood Count 4.61 Miln/mm3 (4.50-5.90); White Blood Count 5.0 Thou/mm3 (3.8-10.6)
[2025-04-05 07:11] LABS: Alanine Aminotransferase 29 U/L (10-49); Albumin, Serum 4.1 gm/dL (3.5-5.0); Albumin/Globulin Ratio 1.3 (1.2-2.2); Alkaline Phosphatase 67 U/L (46-116); Anion Gap 6 (7-16); Aspartate Amino Transferase 36 U/L (0-34); BUN/Creatinine Ratio 7 Ratio (12-20); Bilirubin,Total 0.3 mg/dL (0.3-1.2); Blood Urea Nitrogen < 5 mg/dL (9-23); Calcium 8.5 mg/dL (8.3-10.6); Calcium (Corrected) 8.5 mg/dL (8.5-10.1); Carbon Dioxide 25.0 mMol/L (20.0-31.0); Chloride 109 mMol/L (98-107); Creatinine (Component) 0.7 mg/dL (0.6-1.3); Estimated Creatinine Clearance 150.6 mL/min (>60); Globulin 3.1 gm/dL (2.3-3.5); Glucose 107 mg/dL (74-106); Magnesium 1.9 mg/dL (1.6-2.6); Osmolality,Calculated 276 (275-295); Phosphorous 4.0 mg/dL (2.4-5.1); Potassium 4.0 mMol/L (3.4-5.1); Sodium 140 mMol/L (136-145); Total Protein 7.2 gm/dL (5.7-8.2); eGFR > 60 See Note
[2025-04-05] MEDS: FOLIC ACID 1 MG TABLET PO (09:42)
[2025-04-05] MEDS: THIAMINE 100 MG TABLET PO (09:42)
--- NOTE | 2025-04-05 10:04 | PC.SS ---
Follow up note: On CWAL Protocol. On IV fluids.
--- NOTE | 2025-04-05 12:45 | PC.SS ---
SS met with patient regarding his d/c plan. Pt is alert/oriented. Pt was admitted for Pacreatitis and Alcohol Withdrawal. Pt confirmed demographic and contact information is correct on facesheet. Pt resides alone on his families property. Pt ambulates independently without assistance or DME. Pt is ok with all ADLs. Pt named his mom, Xenia Bustamante medical decision maker if he is unable. Patient?s choice is to return home upon d/c. Pt states he has been consuming alcohol everyday for about 10 years. Pt state he drinks 8 24oz beers dailys. SS spoke to pt about AA meeting and alcohol programs and offered community resources. Pt declined community resources. Pt states he does not have PCP. SS offered verbal choices for PCP Clinics and pt is agreeable to follow up with physician residents at the [facility]. D/C plan: Return home Next of Kin: MomXenia, phone# [phone] PCP: Will establish at [facility] Address: Correct on facesheet
--- NOTE | 2025-04-05 14:01 | ESPR_ITS ---
<Statement entered by Jonathan Hodge MD - 04/16/25 07:44> I reviewed above note and agree with findings and plans. I have also personally examined the patient with medicine team and went over assessment and plan with medical team including internet salesperson and resident physician. Documentation for date of: 04/05/25 Senior resident attestation: Patient evaluated and examined at the bedside, plan of care discussed with rest of the team including my attending physician, except as noted. Pt had worsening CIWA 19, added librium taper protocol , started on clear liquid diet but still feels nauseous and had 1 episode of vomiting, pain is improved. continue with IV fluids and antiemetics. Quresh PGY3 Subjective Subjective Interval history: Patient was seen and examined at bedside. A.m. vitals and labs reviewed. During examination in the morning, patient was fully alert and oriented X3 (time,place, and person) denied abdominal pain, anxiety, headache, or hand tremors. Lipase was 52. CIWA score of 1. In the afternoon, the patient's mom was present at the bedside and participated in a discussion with the patient regarding the patient's condition, future care plan, and advised not to drink any more alcohol. About an hour later, CIWA score of 19 was reported. According to the patient, he suddenly experienced resting hand tremors, sweating, nausea, vomiting, but denied any hallucination, chest palpitations, chest pain or abdominal pain at the time. Vomitus did not contain any blood. Patient was given chlordiazepoxide 25mg PO q4hr. Currently patient feels just like how he was during morning examination. Exam Vital Signs Temp Pulse Resp BP Pulse Ox O2 Del Method 97.9 F 88 16 140/95 H 96 Room Air 04/05/25 11:36 04/05/25 11:36 04/05/25 11:36 04/05/25 11:36 04/05/25 11:36 04/05/25 04:00 Narrative Exam General: No acute distress, well nourished Eye: PERRL, EOMI, normal conjunctiva, no scleral icterus HENT: Normocephalic, atraumatic, hearing intact to conversation at normal volume, moist oral mucosa Neck: Supple, non-tender, no JVD, no lymphadenopathy Lungs: Non-labored respirations, symmetric chest rise, Clear to auscultate bilaterally Heart: Peripheral pulses intact bilaterally Abdomen: Soft, non-tender, non-distended Musculoskeletal: Normal range of motion and strength Skin: Skin is warm, dry, no rashes or lesions. Psychiatric: Cooperative, appropriate mood and affect Neuro: Cranial nerves II-XII grossly intact. Strength 5/5 throughout. Sensations intact to light touch. AAOx3 (time,place,person) Objective Labs 04/07/25 04:40 04/07/25 04:40 Labs: Laboratory Results - last 24 hr 04/04/25 04/05/25 04/05/25 23:59 00:00 02:21 WBC 6.4 D RBC 4.67 Hgb 14.0 Hct 38.9 L MCV 83 MCH 30.0 MCHC 36.0 RDW Std Deviation 43.8 Plt Count 238 D Neut % (Auto) 40 Lymph % (Auto) 45 [place] % (Auto) 7 Eos % (Auto) 6 Baso % (Auto) 1 Neut # (Auto) 2.6 Lymph # (Auto) 2.9 [place] # (Auto) 0.5 Eos # (Auto) 0.4 Baso # (Auto) 0.1 Immature Gran # (Auto) 0.02 H Absolute Nucleated RBC 0.00 Immature Gran % 0 Nucleated RBC % 0 ESR 19 H PT 10.9 INR 1.0 APTT 28.2 VBG pH 7.43 VBG pCO2 38 VBG pO2 70 H VBG O2 Sat (Lionel) 94 L VBG Base Excess 1 Sodium 138 Potassium 3.8 Chloride 105 Carbon Dioxide 23.4 Anion Gap 10 BUN < 5 L Creatinine 0.8 Estim Creat Clear Calc 131.8 eGFR > 60 BUN/Creatinine Ratio 6 L Glucose 116 H Calculated Osmolality 273 L Lactic Acid 1.8 Calcium 8.7 Corrected Calcium 8.7 Phosphorus Magnesium 2.0 Total Bilirubin 0.3 Direct Bilirubin 0.1 AST 37 H ALT 32 Alkaline Phosphatase 70 Ammonia 11 Total Creatine Kinase 174 H C-Reactive Prot, Quant 0.6 B-Natriuretic Peptide < 20 Total Protein 7.4 Albumin 4.3 Globulin 3.1 Albumin/Globulin Ratio 1.4 Amylase 87 Lipase 52 Vitamin B12 397 Beta-Hydroxybutyrate/Acetoacetate 0.0 Procalcitonin < 0.04 TSH 2.66 Free T4 1.20 Ur Collection Type Clean Catch Urine Color Colorless A Urine Clarity Clear Urine pH 6.5 Ur Specific [place] 1.007 Urine Protein Negative Urine Glucose (UA) Negative Urine Ketones Negative Urine Blood Negative Urine Nitrite Negative Urine Bilirubin Negative Urine Urobilinogen (Auto) Negative Ur Leukocyte Esterase Negative Urine RBC 1 Urine WBC 0 Ur Squamous Epith Cells 0 Urine Bacteria None Salicylates < 3.0 Urine Opiates Screen Negative Urine Fentanyl Screen Negative Acetaminophen < 2.0 L Ur Barbiturates Screen Negative U Amphetamin/Meth Scrn Negative U Benzodiazepines Scrn Negative U Cocaine Metab Screen Negative U Marijuana (THC) Screen Negative Ethyl Alcohol 405.0 H* 04/05/25 05:30 WBC 5.0 RBC 4.61 Hgb 13.8 Hct 40.2 L MCV 87 MCH 29.9 MCHC 34.3 RDW Std Deviation 46.2 H Plt Count 246 Neut % (Auto) 46 Lymph % (Auto) 45 [place] % (Auto) 6 Eos % (Auto) 2 Baso % (Auto) 2 Neut # (Auto) 2.3 Lymph # (Auto) 2.3 [place] # (Auto) 0.3 Eos # (Auto) 0.1 Baso # (Auto) 0.1 Immature Gran # (Auto) 0.01 H Absolute Nucleated RBC 0.00 Immature Gran % 0 Nucleated RBC % 0 ESR PT INR APTT VBG pH VBG pCO2 VBG pO2 VBG O2 Sat (Lionel) VBG Base Excess Sodium 140 Potassium 4.0 Chloride 109 H Carbon Dioxide 25.0 Anion Gap 6 L BUN < 5 L Creatinine 0.7 Estim Creat Clear Calc 150.6 eGFR > 60 BUN/Creatinine Ratio 7 L Glucose 107 H Calculated Osmolality 276 Lactic Acid Calcium 8.5 Corrected Calcium 8.5 Phosphorus 4.0 Magnesium 1.9 Total Bilirubin 0.3 Direct Bilirubin AST 36 H ALT 29 Alkaline Phosphatase 67 Ammonia Total Creatine Kinase C-Reactive Prot, Quant B-Natriuretic Peptide Total Protein 7.2 Albumin 4.1 Globulin 3.1 Albumin/Globulin Ratio 1.3 Amylase Lipase Vitamin B12 Beta-Hydroxybutyrate/Acetoacetate Procalcitonin TSH Free T4 Ur Collection Type Urine Color Urine Clarity Urine pH Ur Specific [place] Urine Protein Urine Glucose (UA) Urine Ketones Urine Blood Urine Nitrite Urine Bilirubin Urine Urobilinogen (Auto) Ur Leukocyte Esterase Urine RBC Urine WBC Ur Squamous Epith Cells Urine Bacteria Salicylates Urine Opiates Screen Urine Fentanyl Screen Acetaminophen Ur Barbiturates Screen U Amphetamin/Meth Scrn U Benzodiazepines Scrn U Cocaine Metab Screen U Marijuana (THC) Screen Ethyl Alcohol ABG Interpretation ABG results: 04/04/25 23:59 VBG pH 7.43 VBG pCO2 38 VBG pO2 70 H VBG Base Excess 1 Quality Measures Quality Measures none Assessment & Plan Assessment Current Active Medications: Generic Name Dose Route Start Last Admin Trade Name Freq PRN Reason Stop Dose Admin Hydrocodone Bitart/Acetaminophen 1 tab 04/05/25 08:51 Hydrocodone/Apap 5/325 Tablet PO 04/10/25 08:50 Q8HR PRN PAIN SCALE 4-6 (Moderate Cyanocobalamin 500 mcg 04/05/25 09:00 04/05/25 09:42 Cyanocobalamin 500 Mcg Tablet PO 05/05/25 08:59 500 mcg QDAY WILMA Administration Folic Acid 1 mg 04/05/25 09:00 04/05/25 09:42 Folic Acid 1 Mg Tablet PO 05/05/25 08:59 1 mg QDAY WILMA Administration Lactated Ringer's 1,000 mls @ 150 mls/hr 04/05/25 02:32 04/05/25 10:07 Lactated Ringers IV 04/05/25 15:51 150 mls/hr .Q6H40M WILMA Administration Lorazepam 1 mg 04/05/25 02:11 04/05/25 09:41 Lorazepam 0.5 Mg Tablet PO 04/10/25 02:10 1 mg Q4HR PRN Administration CIWA SCORE 7-11 Lorazepam 0.5 mg 04/05/25 02:11 Lorazepam 0.5 Mg Tablet PO 04/10/25 02:10 Q4HR PRN CIWA Score 2-6 Lorazepam 2 mg 04/05/25 02:11 Lorazepam 0.5 Mg Tablet PO 04/10/25 02:10 Q4HR PRN CIWA SCORE 12-15 Morphine Sulfate 2 mg 04/05/25 08:51 Morphine Sulf Inj 10 Mg/Ml Vial IVP 04/10/25 08:50 Q4HR PRN PAIN SCALE 7-10 (Severe Ondansetron HCl 4 mg 04/05/25 02:05 Ondansetron Inj 2 Mg/Ml Inj 2 Ml IVP 05/05/25 02:04 Q6H PRN NAUSEA OR VOMITING Protocol Pantoprazole Sodium 40 mg 04/05/25 09:00 04/05/25 09:41 Pantoprazole Inj 40 Mg Vial IVP 05/05/25 08:59 40 mg QDAY WILMA Administration Thiamine HCl 100 mg 04/05/25 09:00 04/05/25 09:42 Thiamine 100 Mg Tablet PO 05/05/25 08:59 100 mg QDAY WILMA Administration Plan #Acute pancreatitis #likely 2/2 acute alcohol intoxication -vs biliary pancreatitis from gallstones unlikely from CTAP result and chronic hx of alcohol usage vs trauma unlikely no recent surgeries or accidents. Noncontrast CTAP showed acute pancreatitis and patient endorses tenderness to palpation of the RUQ and RLQ abdomen. In the setting of patient's elevated urine ethyl alcohol level of 405.0, current suspicion is that the acute pancreatitis is alcohol-induced. Patient unable to tell us when his last drink was AST and creatine kinase are only slightly elevated (36 and 174, respectively) Plan: -Moderate fluid infusion with 1 L LR maintenance fluid at 150 mL/hr x 2 was given. -Pain regimen: IV Toradol 30 mg q6HR prn (pain 4-7) and IV morphine 2 mg q1HR prn (pain 7-10) -Placed on NPO (advance diet as tolerated) -Patient has been placed on CIWA protocol. Episode of alcohol withdrawl symptoms (CIWA of 19). Given chlordiazepoxide 25mg PO q4hr. Patient is currently stable. -Monitor for visual or auditory hallucinations -Started IV Zofran 40 mg prn for nausea -Had conversation with the patient and patient's mom at bedside about patient's condition and future care plans, and educated on alcohol cessation. Hospital Management: Disposition: being managed for acute pancreatitis and on CIWA protocol Diet: NPO (advance diet as tolerated) GI Prophylaxis: none Bowel Prophylaxis: none DVT Prophylaxis: SCDs CODE STATUS: Full Code Assessment and plan discussed with my attending physician Dr. Hodge and Dr. Oconnell (PGY-3) Dr. Reinoso (PGY-1)- Internal medicine resident
[2025-04-06] VITALS (10 sets, daily range): BP systolic 120–136; BP diastolic 87–99; PULSE 57–110; RESP 10–18; TEMP 36.2–36.9; O2SAT 97–98
[2025-04-06 06:03] LABS: Basophils # (Auto) 0.1 Thou/mm3 (0.0-0.2); Basophils % (Auto) 1 % (0-2.5); Eosinophils # (Auto) 0.1 Thou/mm3 (0.0-0.5); Eosinophils % (Auto) 2 % (0-10); Hematocrit 42.9 % (41.0-53.0); Hemoglobin 14.8 g/dL (13.5-16.0); Immature Granulocytes Auto 0.01 Thou/mm3 (0.00-0.00); Lymphocytes # (Auto) 1.9 Thou/mm3 (1.0-4.8); Lymphocytes % (Auto) 28 % (10-50); Mean Corpuscular HGB Conc 34.5 g/dl (31.0-37.0); Mean Corpuscular Hemoglobin 29.5 pg (25.0-35.0); Mean Corpuscular Volume 86 fL (80-100); Monocytes # (Auto) 0.6 Thou/mm3 (0.0-0.8); Monocytes % (Auto) 8 % (0-12); Neutrophils # (Auto) 4.2 Thou/mm3 (1.8-7.7); Neutrophils % (Auto) 61 % (37-80); Nucleated Red Blood Cell # 0.00 Thou/mm3 (0.00-0.00); Nucleated Red Blood Cell % 0 /100 WBC (0); Platelet Count 219 Thou/mm3 (140-440); RDW Standard Deviation 44.4 fL (35.1-43.9); Red Blood Count 5.01 Miln/mm3 (4.50-5.90); White Blood Count 6.9 Thou/mm3 (3.8-10.6)
[2025-04-06 06:29] LABS: Alanine Aminotransferase 27 U/L (10-49); Albumin, Serum 4.2 gm/dL (3.5-5.0); Anion Gap 12 (7-16); Aspartate Amino Transferase 35 U/L (0-34); BUN/Creatinine Ratio 6 Ratio (12-20); Bilirubin,Total 1.4 mg/dL (0.3-1.2); Blood Urea Nitrogen 5 mg/dL (9-23); Calcium 9.7 mg/dL (8.3-10.6); Calcium (Corrected) 9.7 mg/dL (8.5-10.1); Carbon Dioxide 25.4 mMol/L (20.0-31.0); Chloride 99 mMol/L (98-107); Creatinine (Component) 0.8 mg/dL (0.6-1.3); Estimated Creatinine Clearance 131.8 mL/min (>60); Globulin 3.3 gm/dL (2.3-3.5); Glucose 85 mg/dL (74-106); Magnesium 1.5 mg/dL (1.6-2.6); Osmolality,Calculated 268 (275-295); Phosphorous 3.9 mg/dL (2.4-5.1); Potassium 4.2 mMol/L (3.4-5.1); Sodium 136 mMol/L (136-145); Total Protein 7.5 gm/dL (5.7-8.2); eGFR > 60 See Note
[2025-04-06 06:30] LABS: Albumin/Globulin Ratio 1.3 (1.2-2.2); Alkaline Phosphatase 72 U/L (46-116); Cardiac Risk Estimate 2.9 RATIO (4.0-6.7); Cholesterol 179 mg/dL (132-200); HDL Cholesterol 62 mg/dL (40-60); LDL Cholesterol,Calculated 102 mg/dL (0-130); Triglycerides 76 mg/dL (30-150)
[2025-04-06] MEDS: MAGNESIUM OXIDE 400 MG TABLET PO (08:13)
[2025-04-06] MEDS: FOLIC ACID 1 MG TABLET PO (08:13)
[2025-04-06] MEDS: THIAMINE 100 MG TABLET PO (08:13)
[2025-04-06] MEDS: ONDANSETRON INJ 2 MG/ML INJ 2 ML 4 MG IVP (08:14)
--- NOTE | 2025-04-06 12:42 | ESPR_ITS ---
<Statement entered by Jonathan Hodge MD - 04/16/25 07:44> I reviewed above note and agree with findings and plans. I have also personally examined the patient with medicine team and went over assessment and plan with medical team including consultant internship and resident physician. Documentation for date of: 04/06/25 Subjective Subjective Interval history: Patient was seen and examined at bedside. A.m. vitals and labs reviewed. Yesterday afternoon, he had an episode of alcohol withdrawl symptoms with resting hand tremor, sweating, nausea, and vomiting. His CIWA score was 19 yesterday, now CIWA score is 6. He will stay at the hospital for one more day, and if he remains stable, he will likely be discharged tomorrow. Patient was able to tolerate clean liquid diet. He will be upgraded to advanced diet. Patient complained of intermittent abdominal pain. Patient denied chest pain, palpitations, shortness of breathe, hallucinations, nausea and vomiting. Exam Vital Signs Temp Pulse Resp BP Pulse Ox O2 Del Method 97.1 F 85 10 L 133/98 H 97 Room Air 04/06/25 08:00 04/06/25 08:00 04/06/25 08:00 04/06/25 08:00 04/06/25 08:00 04/06/25 08:00 Narrative Exam General: No acute distress, well nourished Eye: PERRL, EOMI, normal conjunctiva, no scleral icterus HENT: Normocephalic, atraumatic, hearing intact to conversation at normal volume, moist oral mucosa Neck: Supple, non-tender, no JVD, no lymphadenopathy Lungs: Non-labored respirations, symmetric chest rise, Clear to auscultate bilaterally Heart: Peripheral pulses intact bilaterally Abdomen: Soft, non-tender, non-distended Musculoskeletal: Normal range of motion and strength Skin: Skin is warm, dry, no rashes or lesions. Psychiatric: Cooperative, appropriate mood and affect Neuro: Cranial nerves II-XII grossly intact. Strength 5/5 throughout. Sensations intact to light touch. AAOx3 (time,place,person) Objective Labs 04/06/25 04:37 04/06/25 04:37 Labs: Laboratory Results - last 24 hr 04/06/25 04:37 WBC 6.9 RBC 5.01 Hgb 14.8 Hct 42.9 MCV 86 MCH 29.5 MCHC 34.5 RDW Std Deviation 44.4 H Plt Count 219 Neut % (Auto) 61 Lymph % (Auto) 28 [place] % (Auto) 8 Eos % (Auto) 2 Baso % (Auto) 1 Neut # (Auto) 4.2 Lymph # (Auto) 1.9 [place] # (Auto) 0.6 Eos # (Auto) 0.1 Baso # (Auto) 0.1 Immature Gran # (Auto) 0.01 H Absolute Nucleated RBC 0.00 Immature Gran % 0 Nucleated RBC % 0 Sodium 136 Potassium 4.2 Chloride 99 Carbon Dioxide 25.4 Anion Gap 12 BUN 5 L Creatinine 0.8 Estim Creat Clear Calc 131.8 eGFR > 60 BUN/Creatinine Ratio 6 L Glucose 85 Calculated Osmolality 268 L Calcium 9.7 Corrected Calcium 9.7 Phosphorus 3.9 Magnesium 1.5 L Total Bilirubin 1.4 H D AST 35 H ALT 27 Alkaline Phosphatase 72 Total Protein 7.5 Albumin 4.2 Globulin 3.3 Albumin/Globulin Ratio 1.3 Triglycerides 76 Cholesterol 179 LDL Cholesterol, Calc 102 HDL Cholesterol 62 H Cholesterol/HDL Ratio 2.9 L ABG Interpretation ABG results: 04/04/25 23:59 VBG pH 7.43 VBG pCO2 38 VBG pO2 70 H VBG Base Excess 1 Quality Measures Quality Measures none Assessment & Plan Assessment Current Active Medications: Generic Name Dose Route Start Last Admin Trade Name Freq PRN Reason Stop Dose Admin Hydrocodone Bitart/Acetaminophen 1 tab 04/05/25 08:51 Hydrocodone/Apap 5/325 Tablet PO 04/10/25 08:50 Q8HR PRN PAIN SCALE 4-6 (Moderate Chlordiazepoxide HCl 25 mg 04/05/25 15:30 04/06/25 10:31 Chlordiazepoxide Hcl 25 Mg Capsule PO 04/09/25 15:29 25 mg Q4HR WILMA Administration Taper Cyanocobalamin 500 mcg 04/05/25 09:00 04/06/25 08:13 Cyanocobalamin 500 Mcg Tablet PO 05/05/25 08:59 500 mcg QDAY WILMA Administration Folic Acid 1 mg 04/05/25 09:00 04/06/25 08:13 Folic Acid 1 Mg Tablet PO 05/05/25 08:59 1 mg QDAY WILMA Administration Lorazepam 1 mg 04/05/25 02:11 04/06/25 07:29 Lorazepam 0.5 Mg Tablet PO 04/10/25 02:10 1 mg Q4HR PRN Administration CIWA SCORE 7-11 Lorazepam 0.5 mg 04/05/25 02:11 Lorazepam 0.5 Mg Tablet PO 04/10/25 02:10 Q4HR PRN CIWA Score 2-6 Lorazepam 2 mg 04/05/25 02:11 Lorazepam 0.5 Mg Tablet PO 04/10/25 02:10 Q4HR PRN CIWA SCORE 12-15 Lorazepam 2 mg 04/05/25 19:30 04/05/25 20:50 Lorazepam 2 Mg/Ml Vial IVP 04/10/25 19:29 2 mg Q4HR PRN Administration CIWA 16-20 Morphine Sulfate 2 mg 04/05/25 08:51 Morphine Sulf Inj 10 Mg/Ml Vial IVP 04/10/25 08:50 Q4HR PRN PAIN SCALE 7-10 (Severe Ondansetron HCl 4 mg 04/05/25 02:05 04/06/25 08:14 Ondansetron Inj 2 Mg/Ml Inj 2 Ml IVP 05/05/25 02:04 4 mg Q6H PRN Administration NAUSEA OR VOMITING Protocol Pantoprazole Sodium 40 mg 04/05/25 09:00 04/06/25 08:14 Pantoprazole Inj 40 Mg Vial IVP 05/05/25 08:59 40 mg QDAY WILMA Administration Thiamine HCl 100 mg 04/05/25 09:00 04/06/25 08:13 Thiamine 100 Mg Tablet PO 05/05/25 08:59 100 mg QDAY WILMA Administration Plan Sukhwinder Bey is a 29-year-old M with a PMH of alcohol use disorder, alcohol withdrawal without seizures, methamphetamine use, and left knee tumor since childhood who presents today with acute pancreatitis and alcohol intoxication. Patient was admitted for the work-up and management of acute pancreatitis and alcohol withdrawal symptoms. He is currently undergoing alcohol withdrawl symptoms. #Alcohol Withdrawl -Patient had episdoe of alcohol withdral symptoms with N/V, sweating, and hand tremors. -LFTs within normal limits despite hx of chronic alcohol abuse -Current CIWA score is 6. Plan -CIWA protocol -Folic acid 1mg PO qd -Vitamin B-12 500mcg PO qd -Thiamine 100mg PO qd -Monitor for visual or auditory hallucinations Hospital Management: Disposition: being managed for alcohol withdrawl and on CIWA protocol Diet: Clear liquid diet (advance diet as tolerated) GI Prophylaxis: none Bowel Prophylaxis: none DVT Prophylaxis: SCDs CODE STATUS: Full Code Assessment and plan discussed with my attending physician Dr. Naveen Reinoso (PGY-1)- Internal medicine resident
[2025-04-07] VITALS: BP 128/97; PULSE 70; PULSE 78; RESP 16; TEMP 36.6; O2SAT 99
[2025-04-07 04:00] VITALS: BP 123/86; PULSE 67; PULSE 77; RESP 18; TEMP 36.3; O2SAT 99
[2025-04-07 05:17] LABS: Basophils # (Auto) 0.1 Thou/mm3 (0.0-0.2); Basophils % (Auto) 1 % (0-2.5); Eosinophils # (Auto) 0.2 Thou/mm3 (0.0-0.5); Eosinophils % (Auto) 2 % (0-10); Hematocrit 43.5 % (41.0-53.0); Hemoglobin 14.9 g/dL (13.5-16.0); Immature Granulocytes Auto 0.01 Thou/mm3 (0.00-0.00); Lymphocytes # (Auto) 2.0 Thou/mm3 (1.0-4.8); Lymphocytes % (Auto) 29 % (10-50); Mean Corpuscular HGB Conc 34.3 g/dl (31.0-37.0); Mean Corpuscular Hemoglobin 29.6 pg (25.0-35.0); Mean Corpuscular Volume 86 fL (80-100); Monocytes # (Auto) 0.6 Thou/mm3 (0.0-0.8); Monocytes % (Auto) 9 % (0-12); Neutrophils # (Auto) 4.0 Thou/mm3 (1.8-7.7); Neutrophils % (Auto) 58 % (37-80); Nucleated Red Blood Cell # 0.00 Thou/mm3 (0.00-0.00); Nucleated Red Blood Cell % 0 /100 WBC (0); Platelet Count 229 Thou/mm3 (140-440); RDW Standard Deviation 45.0 fL (35.1-43.9); Red Blood Count 5.04 Miln/mm3 (4.50-5.90); White Blood Count 6.9 Thou/mm3 (3.8-10.6)
[2025-04-07 05:45] LABS: Alanine Aminotransferase 36 U/L (10-49); Albumin, Serum 4.4 gm/dL (3.5-5.0); Albumin/Globulin Ratio 1.4 (1.2-2.2); Alkaline Phosphatase 73 U/L (46-116); Anion Gap 10 (7-16); Aspartate Amino Transferase 53 U/L (0-34); BUN/Creatinine Ratio 8 Ratio (12-20); Bilirubin,Total 1.4 mg/dL (0.3-1.2); Blood Urea Nitrogen 6 mg/dL (9-23); Calcium 9.5 mg/dL (8.3-10.6); Calcium (Corrected) 9.5 mg/dL (8.5-10.1); Carbon Dioxide 26.2 mMol/L (20.0-31.0); Chloride 101 mMol/L (98-107); Creatinine (Component) 0.8 mg/dL (0.6-1.3); Estimated Creatinine Clearance 131.8 mL/min (>60); Globulin 3.2 gm/dL (2.3-3.5); Glucose 96 mg/dL (74-106); Magnesium 1.7 mg/dL (1.6-2.6); Osmolality,Calculated 271 (275-295); Phosphorous 4.2 mg/dL (2.4-5.1); Potassium 3.9 mMol/L (3.4-5.1); Sodium 137 mMol/L (136-145); Total Protein 7.6 gm/dL (5.7-8.2); eGFR > 60 See Note
[2025-04-07 08:00] VITALS: BP 119/88; PULSE 84; RESP 19; TEMP 36.3; O2SAT 94
[2025-04-07] MEDS: THIAMINE 100 MG TABLET PO (09:44)
[2025-04-07] MEDS: FOLIC ACID 1 MG TABLET PO (09:44)
--- NOTE | 2025-04-07 10:05 | ESDS_ITS ---
<Statement entered by Jonathan Hodge MD - 04/16/25 07:45> I reviewed above note and agree with findings and plans. I have also personally examined the patient with medicine team and went over assessment and plan with medical team including internet sales associate and resident physician. Planned Discharge Date 04/07/25 DS: Providers Provider Date of admission: 04/05/25 02:05 Primary care physician: Physician No Primary/Family Admitting Provider: Jona Roman MD Attending Provider on Admission: Jonathan Hodge MD Attending Provider on DC: Jonathan Hodge MD Discharging Provider: Jonathan Hodge MD DS: Diagnosis Problem List Completed Was Problem List Reviewed/Reconciled?: Yes Hospital Course Hospital Course Hospital course: Summary: Sukhwinder Bey is a 29-year-old male with a history of alcohol use disorder, alcohol withdrawal without seizures, methamphetamine use, and left knee tumor since childhood who presented on 04/05 with acute pancreatitis and alcohol intoxication. He was admitted for the work-up and management of acute pancreatitis and alcohol withdrawal symptoms. ED Course: ED vitals: BP 126/86 HR 90 RR 18 Temp 98.5 SpO2 97% on room air ED labs: CBC was unremarkable. CMP showed slightly elevated creatine kinase 174 but was otherwise unremarkable. Utox showed a significantly elevated urine ethyl alcohol 405.0. ED imaging: Noncontrast CTAP, on preliminary read, showed acute pancreatitis. ED medications administered: 1 L NS bolus x1, IV lorazepam 2 mg x1, IV thiamine 100 mg x1, IV Zofran 4 mg x1, and started on 1 L LR maintenance fluid at 150 mL/ hr x2. Reason for hospitalization: Patient is a 29 year old male with PMH alcohol use disorder, alcohol withdrawal without seizures, and methamphetamine use who was admitted on 04/05 for the work- up and management of acute pancreatitis (on CTAP 04/05) and alcohol withdrawal symptoms. Patient demonstrated alcohol withdrawal symptoms throughout stay, CIWA protocol was initiated along with vitamin B1, vit B12, and folic acid. Pancreatitis resolved without intervention, now able to tolerate advance diet. Patient was counseled extensively on his alcohol use, strongly recommended cessation and adequate hydration. Discharge Recommendations: -Recommend strict alcohol abstinence -Follow up with PCP within 1 week of discharge with labs and complete metabolic panel -Return to the ED or call EMS if symptoms return and/or worsen. Hospital Diagnoses: #Acute alcoholic pancreatitis #Alcohol withdrawal #Hx alcohol abuse #Hx meth use Disposition: Safe discharge to home Patient plan of care was discussed with the senior resident, Dr. Oconnell, and attending physician, Dr. Hodge. Lyric Jeronimo, PGY-1 Senior resident attestation: Patient evaluated and examined at the bedside, plan of care discussed with rest of the team including my attending physician, except as noted. Patient was admitted for alcohol withdrawal disorder and acute pancreatitis, complaining of severe abdominal pain, nausea vomiting, along with withdrawal symptoms. Was kept n.p.o. initially, later started on clear liquid diet advanced as patient tolerated more solid food. Patient started on Librium taper and CIWA protocol with Ativan. Withdrawal symptoms improved, patient able to tolerate per oral diet. Counseled extensively regarding discontinuing with alcohol and maintain complete alcohol abstinence. The patient will be discharged, follow-up instructions provided. Kourtney PGY3 Time Spent with Patient Time attestation: Total time spent providing and/or coordinating discharge services: at least 30 minutes of care coordination Time spent: Greater than 30 minutes Exam Vital Signs Temp Pulse Resp BP Pulse Ox O2 Del Method 97.4 F 84 19 119/88 H 94 L Room Air 04/07/25 08:00 04/07/25 08:00 04/07/25 08:00 04/07/25 08:00 04/07/25 08:00 04/07/25 08:00 Narrative Exam Physical Exam General: Awake and in no acute distress. Conversational and non-toxic appearing. HEENT: Normocephalic, atraumatic, mucous membranes moist. Heart: Tachycardic. Regular rate and rhythm, normal S1 and S2, no murmurs. Lungs: Clear to auscultation with no wheezing or crackles. Abdomen: Soft, nondistended, nontender, positive bowel sounds. No guarding or rebound tenderness. Neurologic: Alert and oriented x3, no gross neurological deficit, and patient able to move all 4 extremities. Mild tremors in upper extremities bilaterally. Extremities: No edema. Skin: No rash or ecchymoses. Discharge Plan Plan Patient Disposition: HOME (Self Care) Care Plan Goals: Recommend strict alcohol abstinence, Follow up with Primary care physician with labs within 7 days of discharge from hospital, with labs- Complete metabolic panel. If symptoms persist or worsen, return to the Emergency Department. Prescriptions/Referrals Prescriptions/Med Rec: New cyanocobalamin (vitamin B-12) 500 mcg Tablet 500 mcg PO QDAY 30 Days Qty: 30 0RF folic acid 1 mg Tablet 1 mg PO QDAY 30 Days Qty: 30 0RF thiamine mononitrate (vit B1) 100 mg Tablet 100 mg PO QDAY 30 Days Qty: 30 0RF ondansetron 4 mg tablet,disintegrating 4 mg PO Q8H PRN (Reason: nausea and vomiting) Qty: 10 0RF Referrals: No Primary/Family,Physician [Primary Care Provider] - Outpatient Orders (i.e. Home Health, Labs, Imaging): Comprehensive Metabolic Panel (Routine) Timeframe: 1 Week Location: Determined by Patient Ordered By: Leona Oconnell Patient/Caregiver Discharge Instructions Meds to Beds: No Discharge Activity: activity as tolerated Education Materials: Alcohol Withdrawal: What to Expect, Addiction: Getting Help, Addiction Recovery Counseling Print Language: Welsh Stand Alone Forms: Robyn Award Info., Patient Portal Info Letter Discharge Order Discharge Orders: Discharge (Routine); Ordered 04/07/25 Ordered By: Leona Oconnell Quality Discharge Quality Measures VTE prophylaxis
[2025-04-07 10:28] VITALS: PULSE 94
[2025-04-07 11:17] VITALS: BP 115/81; PULSE 89; RESP 18; TEMP 36.6; O2SAT 97
== END 2025-04-07 11:59 | disposition home or self-care (01) | DRG 282 ==
LOC: SERX 04-05 02:35 → SERHOLD 04-05 03:15 → S3NX 04-05 03:33
PROVIDERS: Admitting Provider Student in an Organized Health Care Education/Training Program; Emergency Provider Emergency Medicine; Visit Provider Internal Medicine
DX: K85.20 Alcohol induced acute pancreatitis without necrosis or infection (principal); Y90.8 Blood alcohol level of 240 mg/100 ml or more; F10.139 Alcohol abuse with withdrawal, unspecified; F10.129 Alcohol abuse with intoxication, unspecified; Z53.29 Procedure and treatment not carried out because of patient's decision for other reasons; Z91.199 Patient's noncompliance with other medical treatment and regimen due to unspecified reason
CPT/HCPCS: 36415; 74176; 80053; 80061; 80307; 80320; 80329; 81001; 82010; 82140; 82150; 82248; 82550; 82607; 82803; 83605; 83690; 83735; 83880; 84100; 84145; 84439; 84443; 85025; 85610; 85652; 85730; 86140; 87040; 87400; 87811; 96127; 96361; 96374; 96375; J2060; J2405; J2470; J3411; J7030; J7120; A9270; G0480

== ENCOUNTER 2025-06-22 12:48 | Inpatient (IN) | payer MEDICAID, SELFPAY ==
[2025-06-22] VITALS (9 sets, daily range): BP systolic 143–179; BP diastolic 94–121; PULSE 94–138; RESP 16–19; TEMP 36.6–37.9; O2SAT 97–98; BMI 25.1; BMI 24.6
--- NOTE | 2025-06-22 13:04 | EKG_ITS ---
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
--- NOTE | 2025-06-22 13:17 | XR_ITS ---
Examination: CT brain head without contrast. 2-D sagittal coronal reconstructions Date and time of exam:June 22, 2025, 1339 hrs. Indications: Bilateral fall today with into the head, head pain CTDI: vol (mGy):52.1 DLP: (mGycm):1098 Technique: Multiple CT axial sections of the brain have been obtained, 5 mm slice thickness. Contrast has not been administered. 2-D sagittal, coronal reconstructions have been obtained Low dose protocols were performed. One or more of the following dose reduction techniques were used; automated exposure control, adjustment of the mA and/or KV according to patient size, use of iterative reconstruction technique. Findings: No significant ventricular enlargement. Intra-axial or extra-axial hemorrhage density is not seen. No mass effect or midline shift Basal cisterns are not remarkable. Fourth ventricle is midline. Cranial vault intact. Impression: Negative for acute hemorrhage, mass effect or midline shift
--- NOTE | 2025-06-22 13:17 | XR_ITS ---
Examination: CT lumbar spine, without contrast. 2-D sagittal reconstructions. 2-D coronal reconstructions. 3-D reconstructions. Date and time of exam:June 22, 2025, 1344 hrs. Indications: Lower back pain after falling today CTDI: vol (mGy):19.6 DLP: (mGycm):567 Technique: Multiple 1.25 mm axial sections of the lumbar spine without intravenous contrast have been obtained. 2-D sagittal and coronal reconstructions have been obtained. 3-D reconstructions have been obtained. Low dose protocols were performed. One or more of the following dose reduction techniques were used; automated exposure control, adjustment of the mA and/or KV according to patient size, use of iterative reconstruction technique. Findings: Adequate alignment lumbar vertebral bodies No lumbar vertebral body compression fracture. Lumbar pedicles are intact Old fracture right transverse process L4 No acute laminar or pedicle fracture Soft tissue settings demonstrate no focal lumbar disc protrusion There is moderate to advanced disc narrowing L1-L2 Impression: No acute lumbar fracture
--- NOTE | 2025-06-22 13:17 | XR_ITS ---
Examination: CT cervical spine without contrast 2-D sagittal reconstructions 2-D coronal reconstructions 3-D reconstructions. Exam date and time:June 22, 2025, 1539 hrs. Indications: Patient fell today with into the neck, neck pain CTDI:vol (mGy) 15.2 DLP: (mGycm) 305 Technique: Multiple 2 mm axial sections of the cervical spine have been obtained. The coronal and sagittal reconstructions have been obtained. 3-D reconstructions have been obtained. Low dose protocols were performed. One or more of the following dose reduction techniques were used; automated exposure control, adjustment of the mA and/or KV according to patient size, use of iterative reconstruction technique. Findings: Axial sections demonstrate intact base of the skull. C1 exhibit satisfactory relationship to the odontoid. No acute cervical vertebral body fracture seen. Alignment posterior spinous processes satisfactory. Impression: No acute cervical fracture.
[2025-06-22] MEDS: MIDAZOLAM INJ 1 MG/ML VIAL 2 ML 2 MG IVP (13:19)
--- NOTE | 2025-06-22 13:19 | XR_ITS ---
Examination: AP chest single view Technique: AP portable upright chest single view Date and time: June 22, 2025, 1402 hrs., Comparison February 24, 2022. Findings: Choking shortness of breath today. Findings: Mild prominence left ventricle. No aspiration pneumonia or pulmonary edema. Mild osteopenia Impression: Negative for aspiration pneumonia
[2025-06-22] MEDS: RINGERS LACTATED 1000 ML 1,000 ML 999 ML IV ×2 (13:21→16:21)
--- NOTE | 2025-06-22 13:22 | EDNOTE_ITS ---
ED Seizures RME/HPI General Chief Complaint: Seizure Stated Complaint: SIEZURE Time Seen by Provider: 06/22/25 12:56 Arrival date/time: 06/22/25 12:48 RME / HPI RME / HPI Narrative: 30-year-old male patient was brought in by EMS for evaluation regarding witnessed tonic-clonic seizure. Patient was walking, and was witnessed to have tonic-clonic seizure, landing on his back, patient sustained 1 cm gaping laceration to the scalp. No active bleeding noted patient also complaining of low back pain. Patient told me that he has been alcoholic, consuming more than 5 tall cans of beer every day, last drink 1 hour prior to ER visit. Patient denies any vomiting but was noted to be very anxious and shaky. Denies any chest pain denies any abdominal pain. Patient told me that he is planning to stop drinking alcohol. Related Data Previous Rx's ?Medication ?Instructions ?Recorded ondansetron 4 mg disintegrating 4 mg PO Q8H PRN nausea and 04/07/25 tablet vomiting #10 tabs Allergies Allergy/AdvReac Type Severity Reaction Status Date / Time No Known Allergies Allergy Verified 06/22/25 12:58 Review of Systems Review of Systems Narrative Review of Systems: Review of system reviewed and within normal limits except mentioned in HPI ED Exam Narrative Physical exam: VITAL SIGNS: Reviewed. GENERAL APPEARANCE: Alert and interactive, follows commands, no acute distress, anxious, shaky, with visible tremors HEAD AND FACE: +1 cm occipital scalp laceration, gaping active bleeding ENT: PERRL, pink conjunctivitis, eyelid no trauma, Mucous membrane moist. NECK: Supple, nontender, no nuchal rigidity. CHEST: No tenderness, no crepitus, no paradoxical movement, no retractions. LUNGS: Clear, well ventilated, symmetric, no rales, no wheezing, no ronchi, no stridor, good breath sounds bilaterally. HEART: Regular rate, regular rhythm, no murmur, no gallops. ABDOMEN: Soft, positive bowel sounds, nondistended, no guarding, nontender, no rebound, no masses, RECTAL: Deferred. GENITAL: Deferred. NEUROLOGICAL: Gross motor function intact sensory function intact, Appropriate for age. MUSCULOSKELETAL: low back nontender, full range of motion. EXTREMITIES: Nontender, full range of motion. SKIN: Color pink, dry, no rash, no lacerations, no abrasions, no contusions. LYMPHATICS: Deferred. Course Quality Measures none Orders Category Date Time Status COVID-19 Screening Questionnaire NOW Care 06/22/25 15:12 Active Decision to Admit X1 Care 06/22/25 15:11 Active EKG (ED ONLY) *Do not use* NOW Care 06/22/25 13:[address] cervical spine wo con Stat Exams 06/22/25 13:[address] head/brain wo con Stat Exams 06/22/25 13:[address] lumbar spine wo con Stat Exams 06/22/25 13:17 Completed EKG (ED Only) Stat Exams 06/22/25 13:04 Draft XR chest 1V Stat Exams 06/22/25 13:19 Completed Alcohol, Blood Medical Stat Lab 06/22/25 13:08 Completed CBC Stat Lab 06/22/25 13:08 Completed Comprehensive Metabolic Panel Stat Lab 06/22/25 13:08 Completed Drug Screen,Urine Stat Lab 06/22/25 14:36 Completed Lipase Stat Lab 06/22/25 13:08 Completed Magnesium Stat Lab 06/22/25 13:08 Completed Partial Thromboplastin Time Stat Lab 06/22/25 13:08 Completed Urinalysis, C/S if Indicated Stat Lab 06/22/25 14:36 Completed Midazolam Inj [Versed Inj] Med 06/22/25 13:16 Discontinued 2 mg IVP X1 ONE PHENobarbital Inj 130 mg Med 06/22/25 13:24 Discontinued Sodium Chloride 0.9% Flush [NS Flush] 12 ml IVP X1 Phenytoin Inj [Dilantin Inj] Med 06/22/25 13:17 Discontinued 130 mg IV X1 ONE Ringers Lactated 1000 ml [Lactated Ringers] 1,000 ml Med 06/22/25 13:18 Discontinued IV 999 mls/hr Thiamine Inj [Vitamin B-1 Inj] 250 mg Med 06/22/25 13:21 Discontinued Sodium Chloride 0.9% [Ns] 100 ml IV X1 Vital Signs Vital signs: Vital Signs Temperature 98.4 F 06/22/25 12:58 Pulse Rate 107 H 06/22/25 12:58 Respiratory Rate 19 06/22/25 12:58 Blood Pressure 154/109 H 06/22/25 12:58 Pulse Oximetry (%) 97 06/22/25 12:58 Oxygen Delivery Method Room Air 06/22/25 12:58 Seizure [facility] Narrative [facility] Narrative:: 30-year-old male patient was brought in by EMS for evaluation regarding witnessed tonic-clonic seizure. Patient was walking, and was witnessed to have tonic-clonic seizure, landing on his back, patient sustained 1 cm gaping laceration to the scalp. No active bleeding noted patient also complaining of low back pain. Patient told me that he has been alcoholic, consuming more than 5 tall cans of beer every day, last drink 1 hour prior to ER visit. Patient denies any vomiting but was noted to be very anxious and shaky. Denies any chest pain denies any abdominal pain. Patient told me that he is planning to stop drinking alcohol. Patient CIWA score was noted to be 15 EKG shows sinus tachycardia, ventricular rate 103 bpm, ID interval of 160 MS, no ST segment elevation depression noted. CT scan of the head came back unremarkable. CT scan of the neck came back unremarkable CT scan of the lumbar spine came back unremarkable chest x-ray came back with no aspiration pneumonia. Alcohol level today was noted to be 48. Patient received IV fluids, phenobarbital IV, and Versed, currently patient is back to baseline, Spoke with hospitalist, who admitted the patient. Patient data External records reviewed:: [facility] previous records Clinical information provided by:: patient Social determinants that could affect healthcare access:: alcohol use Patient has the following chronic illnesses:: Alcohol abuse How is presenting disease/condition affected by chronic disease/condition?: caused by Evaluation data The following diagnostics were reviewed and interpreted by me:: lab results, radiology exam(s) and EKG tracing(s) Lab and/or radiology exams considered but not ordered:: None Interpretation Summary: See results in MDM Medications / Prescriptions Medications or Prescriptions considered but not ordered:: None Medication administrations:: Medication Administration History Discontinued Medications Phenobarbital Sodium 130 mg/ (Sodium Chloride 12 ml) 0 mg IVP X1 ONE Stop: 06/22/25 13:25 Last Admin: 06/22/25 13:58 Dose: 130 mg Documented By: JULIETA Lactated Ringer's (Lactated Ringers) 1,000 mls @ 999 mls/hr IV .Q1H1M ONE Stop: 06/22/25 14:18 Last Infusion: 06/22/25 14:22 Dose: Infused Documented By: Admin: 06/22/25 13:21 Dose: 999 mls/hr Documented By: JULIETA Thiamine HCl 250 mg/ Sodium (Chloride) 102.5 mls @ 205 mls/hr IV X1 ONE Stop: 06/22/25 13:50 Last Infusion: 06/22/25 14:31 Dose: Infused Documented By: Admin: 06/22/25 14:01 Dose: 205 mls/hr Documented By: JULIETA Midazolam HCl (Midazolam Inj 1 Mg/Ml Vial 2 Ml) 2 mg IVP X1 ONE Stop: 06/22/25 13:17 Last Admin: 06/22/25 13:19 Dose: 2 mg Documented By: JULIETA Phenytoin Sodium (Phenytoin Inj 50 Mg/Ml Vial 2 Ml) 130 mg IV X1 ONE Stop: 06/22/25 13:18 Last Admin: 06/22/25 14:02 Dose: Not Given Documented By: JULIETA Non-Admin Reason: Duplicate Medication on eMAR Phenobarbital, Versed, thiamine, IV fluids Consultations Consultation(s) initiated? (list below): No Diagnosis Seizure Differential Diagnosis: intractable seizure disorder and generalized seizure Most likely diagnosis given after review of the tests above:: Alcohol withdrawal seizure Admission Indicated Admission indicated?: indicated Admission Request Was there a request for admission?: Yes Admission Attestation Admission request attestation: Discussed case with [ Dr Baldwin] from Hospitalist service regarding admission. Discussed patients ED course, exam findings, labs, and radiology results. The Hospitalist [agrees] to accept the patient for admission. Disposition Plan Disposition Plan: Admit Discharge Plan Plan Patient Disposition: Admit Acute Care w/in Hospital Discharge Disposition comment: Stable Prescriptions/Referrals Prescriptions/Med Rec: No Action ondansetron 4 mg tablet,disintegrating 4 mg PO Q8H PRN (Reason: nausea and vomiting) Qty: 10 0RF Referrals: No Primary/Family,Physician [Primary Care Provider] - In 1 week Problem List Clinical Impression: Alcohol related seizure, Alcohol withdrawal Patient/Caregiver Discharge Instructions Print Language: Argentine Stand Alone Forms: Robyn Award Info., Patient Portal Info Letter
[2025-06-22 13:41] LABS: Basophils # (Auto) 0.1 Thou/mm3 (0.0-0.2); Basophils % (Auto) 2 % (0-2.5); Eosinophils # (Auto) 0.0 Thou/mm3 (0.0-0.5); Eosinophils % (Auto) 0 % (0-10); Hematocrit 39.0 % (41.0-53.0); Hemoglobin 13.2 g/dL (13.5-16.0); Immature Granulocytes Auto 0.01 Thou/mm3 (0.00-0.00); Lymphocytes # (Auto) 0.3 Thou/mm3 (1.0-4.8); Lymphocytes % (Auto) 9 % (10-50); Mean Corpuscular HGB Conc 33.8 g/dl (31.0-37.0); Mean Corpuscular Hemoglobin 30.3 pg (25.0-35.0); Mean Corpuscular Volume 90 fL (80-100); Monocytes # (Auto) 0.2 Thou/mm3 (0.0-0.8); Monocytes % (Auto) 6 % (0-12); Neutrophils # (Auto) 3.1 Thou/mm3 (1.8-7.7); Neutrophils % (Auto) 82 % (37-80); Nucleated Red Blood Cell # 0.00 Thou/mm3 (0.00-0.00); Nucleated Red Blood Cell % 0 /100 WBC (0); RDW Standard Deviation 54.4 fL (35.1-43.9); Red Blood Count 4.35 Miln/mm3 (4.50-5.90); White Blood Count 3.8 Thou/mm3 (3.8-10.6)
[2025-06-22 13:48] LABS: Partial Thromboplastin Time 22.2 Seconds (22.0-36.0)
[2025-06-22] MEDS: PHENobarbital Inj 130 MG, SODIUM CHLORIDE 0.9% FLUSH 12 ML IVP (13:58)
[2025-06-22 14:00] LABS: Platelet Count 75 Thou/mm3 (140-440)
[2025-06-22] MEDS: THIAMINE INJ 250 MG in SODIUM CHLORIDE 0.9% 100 ML 205 MG IV (14:01)
[2025-06-22 14:16] LABS: Alanine Aminotransferase 236 U/L (10-49); Albumin, Serum 4.8 gm/dL (3.5-5.0); Albumin/Globulin Ratio 1.4 (1.2-2.2); Alcohol, Blood Medical 48.2 mg/dL (0-10.0); Alkaline Phosphatase 58 U/L (46-116); Anion Gap 19 (7-16); Aspartate Amino Transferase 244 U/L (0-34); BUN/Creatinine Ratio 6 Ratio (12-20); Bilirubin,Total 1.3 mg/dL (0.3-1.2); Blood Urea Nitrogen < 5 mg/dL (9-23); Calcium 9.7 mg/dL (8.3-10.6); Calcium (Corrected) 9.7 mg/dL (8.5-10.1); Carbon Dioxide 18.7 mMol/L (20.0-31.0); Chloride 101 mMol/L (98-107); Creatinine (Component) 0.8 mg/dL (0.6-1.3); Estimated Creatinine Clearance 135.0 mL/min (>60); Globulin 3.5 gm/dL (2.3-3.5); Glucose 117 mg/dL (74-106); Magnesium 1.9 mg/dL (1.6-2.6); Osmolality,Calculated 275 (275-295); Potassium 4.0 mMol/L (3.4-5.1); Sodium 139 mMol/L (136-145); Total Protein 8.3 gm/dL (5.7-8.2); eGFR > 60 See Note
[2025-06-22 14:31] LABS: Slide Review Platelets confirmed
[2025-06-22 14:39] LABS: Lipase 174 U/L (12-53)
[2025-06-22 14:46] LABS: Collection Type, Urine Clean Catch; Squamous Epithelial Cell,Urine 0 /hpf (0-5)
[2025-06-22 14:54] LABS: Bilirubin,Urine Negative (Negative); Blood,Urine Trace (Negative); Clarity,Urine Clear (Clear/Hazy); Color,Urine Lt-Yellow (Lt Yel-Yel); Culture Indicated,Urine Not Indicated; Glucose, Urine Negative (Negative); Hyaline Casts,Urine < 1 /hpf (0-1); Ketones,Urine Trace (Negative); Leukocyte Esterase,Urine Negative (Negative); Nitrite,Urine Negative (Negative); PH,Urine 7.5 (5.0-7.0); Protein,Urine 1+ (Neg - Trace); RBC,Urine 3 /hpf (0-3); Specific Gravity,Urine 1.011 (1.001-1.035); Urobilinogen,Urine Negative mg/dL (0.0-1.0); WBC,Urine < 1 /hpf (0-5)
[2025-06-22 15:04] LABS: Amphetamine/Methamp Scrn,U Negative (Negative); Barbiturate Screen,Urine Positive (Negative); Benzodiazepines Screen,Urine Positive (Negative); Benzoylecgonine Screen, Ur Negative (Negative); Fentanyl Screen,Urine Negative (Negative); Opiate Screen,Urine Negative (Negative); THC Screen,Urine Negative (Negative)
[2025-06-22] MEDS: hydrALAZINE INJ 20 MG/ML VIAL 15 MG IVP (15:33)
[2025-06-22] MEDS: MIDAZOLAM INJ 1 MG/ML VIAL 2 ML 4 MG IVP (15:34)
--- NOTE | 2025-06-22 15:36 | PC.NURSE ---
RESIDENTS IN AT BEDSIDE TO ASSESS PATIENT. PATIENT STARTED HAVING SEIZURE THAT LASTED ABOUT 2 MINUTES IN ED ROOM 3. EMERGENCY DEPARTMENT CUT OUT WORKER, ESE MADE AWARE. CUT OUT WORKER ORDERED 4MG VERSED IVP. PER RESIDENTS AT BEDSIDE AND CUT OUT WORKER ABREA PATIENT MAY NEED INTUBATION AND ADMISSION TO ICU. PLAN OF CARE ONGOING
--- NOTE | 2025-06-22 15:39 | PD.RESEVENT ---
Documentation for date of: 06/22/25 Event Note Event Note: Patient is 30 yo M brought in by EMS for evaluation regarding witnessed tonic-clonic seizure. Patient was walking, and was witnessed to have tonic-clonic seizure, landing on his back, patient sustained 1 cm gaping laceration to the scalp. Patient was to be admitted for [facility] 15; as I and Dr. Oconnell were obtaining history & physical, patient had a 2nd witnessed tonic-clonic seizure last more than 1 but less than 5 minutes, with drooling, gurgling, and blood-tinged sputum. Seizure spontaneously resolved and patient had post-ictal state with fever. During history pre-seizure, patient stated that he had consumed 3 tall cans of beer today, normally he drinks 5 tall cans a day; he has been doing this for 10 years. Also endorses previous marijuana use. General: AOx0, witnessed seizure activity Skin: Intact, no cyanosis or edema noted, tattoed. HEENT: Atraumatic/normocephalic, [place], neck supple Heart: RRR, S1 and S2 without clicks or murmurs, markedly tachycardiac Lungs: bilateral rales on ascultation, likley secretions Abdomen: Soft, nontender. Bowel sounds present . Vascular: Peripheral pulses palpable Neuro: GCS 8/15, E1 V1 M 6 , witnessed seizure activity, visible shaking prior to seizure, severe withdrawal symptms. Recommendations : - 2 episodes of Seizures despite elevated alchohol levels, and despite receiving loading dose of phenobarbital and versed 2 mg, total dose ordered 260mg phenobarbital, 6mg versed, high risk of recurrent seizures, meets ICU criteria as requiring concurrent barbiturates and benzodiazepeines . - High anion metabolic acidosis - recommend ordering lactic acid and creatnine kinase levels, aggressive iv fluid rehydration.
--- NOTE | 2025-06-22 16:51 | PC.NURSE ---
PATIENT CHANGED AND REPOSITIONED FOR COMFORT.
--- NOTE | 2025-06-22 17:00 | XR_ITS ---
Examination: CT abdomen and pelvis without contrast. Coronal 3-D reconstructions. Sagittal 2-D reconstructions. Date and time of exam:June 22, 2025, 2135 hrs. Indications: Seizure today, alcohol withdrawal with abdominal pain CTDI: vol (mGy): 6.92 DLP: (mGycm): 418 Technique: Axial images of the abdomen have been obtained, 3 mm slice thickness Intravenous contrast material has not been administered. Low dose protocols were performed. One or more of the following dose reduction techniques were used; automated exposure control, adjustment of the mA and/or KV according to patient size, use of iterative reconstruction technique. Findings: Diffuse fatty infiltration throughout the liver No gallstones Spleen not enlarged No pancreatic mass or definite edema Aorta normal size No renal or ureteral calculi, no hydronephrosis No bowel obstruction Normal appendix No diverticulitis Moderate stool in the rectum No prostatomegaly No bladder mass or bladder calculi Mild osteopenia Impression: Diffuse fatty infiltration throughout the liver No gallstones identified No pancreatic edema Normal appendix
--- NOTE | 2025-06-22 17:03 | PD.RESHP ---
Documentation for date of: 06/22/25 Senior resident attestation: Patient evaluated and examined at the bedside, plan of care discussed with rest of the team including my attending physician, except as noted. Patient is a 30-year-old male with a past medical history of alcohol abuse disorder and previous admissions for alcohol withdrawal who presented to the ER following tonic-clonic seizure, fall and trauma to head. The patient has a laceration on his forehead, but no vertebral fracture or intra or cranial hemorrhage noted on CT imaging. Patient has been trying to cut back on his alcohol use, UTOX in ER still positive for alcohol, also positive for benzodiazepines and barbiturates which patient did get IV Versed and IV phenobarbital prior to collecting of urine sample. #Alcohol withdrawal seizures?2 episodes of generalized tonic-clonic seizures, second episode of seizures happened in the ER despite loading with phenobarbital and 2 mg of Versed. Another additional dose of 4 mg of Versed and 130 mg of phenytoin was given by ER provider. At that time noted drooling, and blood-tinged secretions as patient had tongue bite, the patient quickly recovered from postictal state. Patient was still visibly shaking and alert despite total 6 mg of Versed and 130 mg phenobarbital and 130 mg phenytoin. Spoke to ER provider to talk to ICU as patient is requiring high doses of IV benzodiazepines as well as barbiturates for symptom control, 2 episodes of seizures despite elevated levels of alcohol, high CIWA, but ICU admission was denied. Will admit the patient on telemetry, continue observation, started on CIWA protocol with diazepam and scheduled Librium. Seizure precautions in place. #Abdominal pain?rule out pancreatitis?elevated lipase, patient unable to reliably give a good history but noted epigastric tenderness on physical exam. Will order CT abdomen pelvis to evaluate for pancreatitis. #Transaminasemia?Will order acute viral hepatitis panel, possible elevation of liver enzymes secondary to alcohol use and fatty liver. Quresh PGY3 HPI History of Present Illness Chief complaint: Alcohol withdrawal seizures History of present illness: Patient is 30 yo M PMH of alcohol use disorder, alcohol withdrawal without seizures, methamphetamine use, and left knee tumor since childhood who brought in by EMS for evaluation regarding witnessed tonic-clonic seizure. Patient was witnessed to have tonic-clonic seizure, landing on his back, patient sustained 1 cm gaping laceration to the scalp. ED course: Patient brought to ED by ambulance; was shaking initially and given 2mg Versed and 130mg phenobarbital. As Dr. Oconnell and I were obtaining history & physical, patient had a 2nd witnessed tonic-clonic seizure last more than 1 but less than 5 minutes, with drooling, gurgling, and blood-tinged sputum. Not status epilepticus, as first seizure was at approximately 11:40 (before ED arrival) and second (in ED) was around 1500. Seizure spontaneously resolved and patient had post-ictal state with fever. During history pre-seizure, patient stated that he had consumed 3 tall cans of beer today, normally he drinks 5 tall cans a day; he has been doing this for 10 years. Also endorses previous marijuana use. Mother was at bedside; states that he had been drinking more than 5 tall cans a day, but had not been drinking for the last few days. Patient was to be admitted for management of alcohol withdrawal seizures. Past medical history: PMH of alcohol use disorder, alcohol withdrawal without seizures, methamphetamine use, and left knee tumor since childhood history of acute pancreatitis Past surgical history: No pertinent surgical history Social history: Endorses significant alcohol use disorder (5 tall cans/day for approximately 10 years); also endorses previous marijuana and methamphetamine use Family history: No pertinent family history Review of Systems Review of Systems Systems Reviewed: All systems reviewed, normal except as documented Past Medical History Past Medical History NEUROLOGIC: Positive Neurological Disorders and Seizures CARDIAC: Negative Congestive Heart Failure RESPIRATORY: Negative Chronic Obstructive Pulmonary Disease (COPD) GENITOURINARY: Negative Renal Disease ENDOCRINE: Negative Diabetes Mellitus Type 1 or Diabetes Mellitus Type 2 PSYCHO/SOCIAL: Positive Recreational Drug Use (meth, alcohol) Social History SMOKING STATUS: Never smoker SUBSTANCE USE: marijuana, crack/cocaine and methamphetamine Exam Vital Signs Temp Pulse Resp BP Pulse Ox O2 Del Method 100.3 F 126 H 16 143/98 H 97 Room Air 06/22/25 16:03 06/22/25 16:03 06/22/25 16:03 06/22/25 16:03 06/22/25 16:03 06/22/25 16:03 Narrative Exam Note: exam is post-second seizure; for exam during second seizure, see previous event note General: acute distress; A&Ox3 Eyes: vision grossly intact. Ears: Hearing grossly intact. Nose: No nasal discharge. Mouth/Throat: yellow vomitus Neck: Neck supple, non-tender, no cervical lymphadenopathy. Lungs: Bilateral rales Cardio: Normal S1/S2, regular rhythm, no murmurs, tachycardic Abdomen: Soft, non-tender, no palpable masses, peristalsis present, no guarding or rebound. Extremities: Symmetrical, no significant deformities, no peripheral edema , non-tender, peripheral pulses presents. Skin: No rashes, no lesions, warm to touch. Multiple tattoos noted. Neuro: Post-ictal; tremors Psych: Cooperative, anxious mood and effect. Results: Labs 06/23/25 05:30 06/23/25 05:30 Labs: Short CBC 06/22/25 Range/Units 13:08 WBC 3.8 (3.8-10.6) Thou/mm3 Hgb 13.2 L (13.5-16.0) g/dL Hct 39.0 L (41.0-53.0) % Plt Count 75 L (140-440) Thou/mm3 BMP 06/22/25 13:08 Sodium 139 Potassium 4.0 Chloride 101 Carbon Dioxide 18.7 L BUN < 5 L Creatinine 0.8 Glucose 117 H Calcium 9.7 Liver Function 06/22/25 Range/Units 13:08 Total Bilirubin 1.3 H (0.3-1.2) mg/dL AST 244 H (0-34) U/L ALT 236 H (10-49) U/L Alkaline Phosphatase 58 (46-116) U/L Albumin 4.8 (3.5-5.0) gm/dL Urine 06/22/25 Range/Units 14:36 Urine Color Lt-Yellow (Lt Yel-Yel) Urine Clarity Clear (Clear/Hazy) Urine pH 7.5 H (5.0-7.0) Ur Specific [place] 1.011 (1.001-1.035) Urine Protein 1+ A (Neg - Trace) Urine Glucose (UA) Negative (Negative) Quality Measures Quality Measures none Medications Home Medications and Allergies Allergies Allergy/AdvReac Type Severity Reaction Status Date / Time No Known Allergies Allergy Verified 06/22/25 12:58 Visit Medications Chlordiazepoxide HCl (Chlordiazepoxide Hcl 25 Mg Capsule) 50 mg PO Q8HR WILMA Stop: 06/27/25 16:59 Diazepam (Diazepam Inj 5 Mg/Ml Vial 2 Ml) 10 mg IVP X1 PRN PRN Reason: Breakthrough Agitation Diazepam (Diazepam Inj 5 Mg/Ml Vial 2 Ml) 10 mg IVP Q2HR PRN PRN Reason: CIWA SCORE 20-25 Stop: 06/27/25 16:52 Diazepam (Diazepam Inj 5 Mg/Ml Vial 2 Ml) 5 mg IVP Q2HR PRN PRN Reason: CIWA SCORE 14-19 Stop: 06/27/25 16:52 Diazepam (Diazepam Inj 5 Mg/Ml Vial 2 Ml) 2.5 mg IVP Q2HR PRN PRN Reason: CIWA SCORE 8-13 Stop: 06/27/25 16:52 Enoxaparin Sodium (Enoxaparin Sod Inj 40 Mg/0.4 Ml Syringe) 40 mg SC QDAY [facility] Stop: 07/07/25 08:59 Discontinued Medications Phenobarbital Sodium 130 mg/ (Sodium Chloride 12 ml) 0 mg IVP X1 ONE Stop: 06/22/25 13:25 Last Admin: 06/22/25 13:58 Dose: 130 mg Hydralazine HCl (Hydralazine Inj 20 Mg/Ml Vial) 15 mg IVP X1 ONE Stop: 06/22/25 15:15 Last Admin: 06/22/25 15:33 Dose: 15 mg Lactated Ringer's (Lactated Ringers) 1,000 mls @ 999 mls/hr IV .Q1H1M ONE Stop: 06/22/25 14:18 Last Infusion: 06/22/25 14:22 Dose: Infused Thiamine HCl 250 mg/ Sodium (Chloride) 102.5 mls @ 205 mls/hr IV X1 ONE Stop: 06/22/25 13:50 Last Infusion: 06/22/25 14:31 Dose: Infused Lactated Ringer's (Lactated Ringers) 1,000 mls @ 999 mls/hr IV .Q1H1M ONE Stop: 06/22/25 17:03 Last Admin: 06/22/25 16:21 Dose: 999 mls/hr Midazolam HCl (Midazolam Inj 1 Mg/Ml Vial 2 Ml) 2 mg IVP X1 ONE Stop: 06/22/25 13:17 Last Admin: 06/22/25 13:19 Dose: 2 mg Midazolam HCl (Midazolam Inj 1 Mg/Ml Vial 2 Ml) 4 mg IVP X1 ONE Stop: 06/22/25 15:32 Last Admin: 06/22/25 15:34 Dose: 4 mg Phenytoin Sodium (Phenytoin Inj 50 Mg/Ml Vial 2 Ml) 130 mg IV X1 ONE Stop: 06/22/25 13:18 Last Admin: 06/22/25 14:02 Dose: Not Given Assessment & Plan Plan Patient is a 30 yo M with PMH of alcohol use disorder; was admitted for witnessed seizure. First seizure was at approximately 1140; second seizure was in ED at approximately 1500. #Seizures #Alcohol use disorder #Alcohol withdrawal Patient had 2 witnessed seizures approximately 3 hours apart, requiring 6 of Versed and 130 of phenobarbital. Plan: ? CIWA protocol with diazepam ? Seizure precautions ? Every 4 hours neurochecks - Librium 50mg Q8H - Thiamine 100mg PO Qday - If another seizure occurs, consider upgrade to ICU - CT A/P for potential pancreatitis #?Pancreatitis #?Hepatitis ALT-236; AST- 244; CK- 391; T bili- 1.3; Lipase- 174 Plan: - CT A/P without contrast #metabolic acidosis Anion gap- 19 Lactic Acid- 2.3 Plan: - See above Disposition: Admit DVT prophylaxis: Lovenox SC GI prophylaxis: Diet: Lines: peripheral IV CODE STATUS: Full code This case was discussed with my attending physician, Dr. Sparks, and senior resident, Dr. Oconnell. Javed Waldrop MD-PhD, PGY1 Attending Provider Attestation/Addendum I have examined the patient, reviewed labs and imaging findings, discussed the case with the resident(s), and reviewed entered orders. I agree with the plan of care as outlined in this note, with these additional summaries/recommendations: After examination of the patient and review of the clinical data, I feel that this patient needs admission to the hospital for further treatment and evaluation. Patient is a 30-year-old male with a medical history of alcohol use disorder, pancreatitis, and fatty liver disease who presents to [facility] emergency department on 06/22/2025 with chief complaint of witnessed tonic-clonic seizure. Patient seen at bedside. He is a relatively poor historian at this time as he has received Versed and phenobarbital. Patient had tonic-clonic seizure prior to presentation and additional seizure in the emergency room. Patient has multiple visits in the past for alcohol withdrawal. Patient diagnosed with alcohol withdrawal and alcohol withdrawal seizures. Start CIWA and scheduled Librium. Start IV fluids, folate, and thiamine. Seizure precautions. We will certified personal finance counselor patient on alcohol cessation once more improved. Patient was noted to have elevated lipase and appears to have some tenderness on palpation of abdomen. We will order CT scan to evaluate further. Patient has underlying hepatomegaly on previous imaging studies and we will evaluate for cirrhotic changes with CT of abdomen. Patient does appear to have some underlying synthetic liver dysfunction with thrombocytopenia and hyperbilirubinemia. Transaminitis present most likely secondary to alcohol use. No evidence of GI bleed at this time. Patient will be admitted to the hospital. Please see residents note for additional details and management. Dr. Clare MD
[2025-06-22] MEDS: DIAZEPAM INJ 5 MG/ML VIAL 2 ML 2.5 MG IVP (17:58)
--- NOTE | 2025-06-22 18:06 | PC.NURSE ---
REPORT CALLED TO SUNITA BUCK. NO FURTHER QUESTIONS.
[2025-06-22] MEDS: DIAZEPAM INJ 5 MG/ML VIAL 2 ML IVP ×2 (18:36→21:23)
[2025-06-22 18:38] LABS: Lactate (Lactic Acid) 2.3 mMol/L (0.4-2.0)
[2025-06-22] MEDS: Magnesium Sulfate 2 GM Ivpb 2 GM/50 ML BAG IV (18:41)
[2025-06-22 18:49] LABS: Base Excess, Venous 1 (-3-3); O2 Saturation, Venous 84 % (96-97); PCO2, Venous 33 mmHg (36-56); PO2, Venous 46 mmHg (15-58); pH, Venous 7.47 (7.33-7.66)
[2025-06-22 18:57] LABS: Creatine Kinase 391 U/L (34-171)
[2025-06-22 19:04] LABS: INR 1.1 (0.9-1.3); Partial Thromboplastin Time 23.1 Seconds (22.0-36.0); Prothrombin Time 11.3 Seconds (9.0-12.2)
[2025-06-22 21:35] LABS: Reflex Lactate? Y
[2025-06-22 21:55] LABS: Lactic Acid, 3 HR 1.1 mMol/L (0.4-2.0)
[2025-06-23] VITALS (10 sets, daily range): BP systolic 114–131; BP diastolic 80–100; PULSE 89–134; RESP 14–22; TEMP 36.2–36.5; O2SAT 97–98
[2025-06-23] MEDS: DIAZEPAM INJ 5 MG/ML VIAL 2 ML 2.5 MG IVP ×2 (00:31→15:51)
[2025-06-23 05:52] LABS: Basophils # (Auto) 0.1 Thou/mm3 (0.0-0.2); Basophils % (Auto) 1 % (0-2.5); Eosinophils # (Auto) 0.0 Thou/mm3 (0.0-0.5); Eosinophils % (Auto) 1 % (0-10); Hematocrit 39.8 % (41.0-53.0); Hemoglobin 13.5 g/dL (13.5-16.0); Immature Granulocytes Auto 0.01 Thou/mm3 (0.00-0.00); Lymphocytes # (Auto) 1.1 Thou/mm3 (1.0-4.8); Lymphocytes % (Auto) 22 % (10-50); Mean Corpuscular HGB Conc 33.9 g/dl (31.0-37.0); Mean Corpuscular Hemoglobin 31.0 pg (25.0-35.0); Mean Corpuscular Volume 92 fL (80-100); Monocytes # (Auto) 0.7 Thou/mm3 (0.0-0.8); Monocytes % (Auto) 13 % (0-12); Neutrophils # (Auto) 3.3 Thou/mm3 (1.8-7.7); Neutrophils % (Auto) 64 % (37-80); Nucleated Red Blood Cell # 0.00 Thou/mm3 (0.00-0.00); Nucleated Red Blood Cell % 0 /100 WBC (0); Platelet Count 67 Thou/mm3 (140-440); RDW Standard Deviation 55.9 fL (35.1-43.9); Red Blood Count 4.35 Miln/mm3 (4.50-5.90); White Blood Count 5.1 Thou/mm3 (3.8-10.6)
[2025-06-23 05:59] LABS: INR 1.1 (0.9-1.3); Partial Thromboplastin Time 24.5 Seconds (22.0-36.0); Prothrombin Time 11.3 Seconds (9.0-12.2)
[2025-06-23 06:14] LABS: Alanine Aminotransferase 187 U/L (10-49); Albumin, Serum 4.7 gm/dL (3.5-5.0); Albumin/Globulin Ratio 1.4 (1.2-2.2); Alkaline Phosphatase 56 U/L (46-116); Anion Gap 13 (7-16); Aspartate Amino Transferase 150 U/L (0-34); BUN/Creatinine Ratio 6 Ratio (12-20); Bilirubin,Total 2.2 mg/dL (0.3-1.2); Blood Urea Nitrogen 5 mg/dL (9-23); Calcium 9.6 mg/dL (8.3-10.6); Calcium (Corrected) 9.6 mg/dL (8.5-10.1); Carbon Dioxide 23.1 mMol/L (20.0-31.0); Cardiac Risk Estimate 1.7 RATIO (4.0-6.7); Chloride 101 mMol/L (98-107); Cholesterol 192 mg/dL (132-200); Creatinine (Component) 0.8 mg/dL (0.6-1.3); Estimated Creatinine Clearance 135.0 mL/min (>60); Globulin 3.3 gm/dL (2.3-3.5); Glucose 84 mg/dL (74-106); HDL Cholesterol 111 mg/dL (40-60); LDL Cholesterol,Calculated 69 mg/dL (0-130); Magnesium 2.3 mg/dL (1.6-2.6); Osmolality,Calculated 270 (275-295); Phosphorous 3.9 mg/dL (2.4-5.1); Potassium 3.5 mMol/L (3.4-5.1); Sodium 137 mMol/L (136-145); Total Protein 8.0 gm/dL (5.7-8.2); Triglycerides 61 mg/dL (30-150); eGFR > 60 See Note
[2025-06-23 07:50] LABS: Slide Review Platelets confirmed
[2025-06-23] MEDS: ENOXAPARIN SOD INJ 40 MG/0.4 ML SYRINGE SC (08:13)
[2025-06-23] MEDS: DIAZEPAM INJ 5 MG/ML VIAL 2 ML IVP ×3 (08:17→23:02)
--- NOTE | 2025-06-23 10:16 | PC.SS ---
Sukhwinder Bey is a 30-year-old male admitted to [facility] for SZ d/t Alcohol WD. SS conducted bedside contact with the patient to complete initial assessment and to discuss discharge planning. Role and reason explained. Pt confirmed demographic information. Pt identifies his mother Xenia Hernandez [phone]. Pt resides at home alone. Pt is independent with all ADLs. No need for any source of DME. Pt does not possess a PCP. Pt reports not having a pharmacy of choice. Pt will return home at the time of DC. SS will remain available for any additional needs. DC plan: Home DM: Mother
--- NOTE | 2025-06-23 11:00 | ESPR_ITS ---
Documentation for date of: 06/23/25 Subjective Subjective Interval history: Patient was seen and evaluated at bedside this morning. Overnight patient's CIWA score was as high as 22 therefore 19 increase his CIWA treatment. This morning also change patient's Librium to 50 mg every 6 hours as patient still has visible tremors even at rest. Otherwise denying any auditory or visual hallucinations. No other complaints at this time. Exam Vital Signs Temp Pulse Resp BP Pulse Ox O2 Del Method 97.2 F 92 19 129/92 H 98 Room Air 06/23/25 08:00 06/23/25 08:00 06/23/25 08:00 06/23/25 08:00 06/23/25 08:00 06/23/25 08:00 Narrative Exam General: A/O x3, no acute distress, disheveled Eyes: PERRL, EOMI. Anicteric, vision grossly intact. Ears: No ear pain, no ear discharge, Hearing grossly intact. Nose: No nasal discharge. Mouth/Throat: Dry mucous membranes, no redness, no lesions. Neck: Neck supple, non-tender, no cervical lymphadenopathy. Lungs: Clear LAMBERTO to auscultation and percussion, No accessory muscle use. Cardio: Normal S1/S2, regular rhythm, no murmurs, no JVD Abdomen: Soft, non-tender, no palpable masses, peristalsis present, no guarding or rebound. Extremities: Symmetrical, no significant deformities, no peripheral edema , non-tender, peripheral pulses presents. Tremors LAMBERTO UE at rest Skin: No rashes, no lesions, warm to touch. 2 cm nodule in exterior corner of L eye (chronic) Neuro: No focal neurological deficits appreciated, strength LAMBERTO UE and LE 5/5 and sensory intact. Psych: Cooperative, no visual or auditory hallucinations. Objective Labs 06/24/25 04:30 06/24/25 04:30 Labs: Laboratory Results - last 24 hr 06/22/25 06/22/25 06/22/25 13:08 14:36 18:30 WBC 3.8 RBC 4.35 L Hgb 13.2 L Hct 39.0 L MCV 90 MCH 30.3 MCHC 33.8 RDW Std Deviation 54.4 H Plt Count 75 L Neut % (Auto) 82 H Lymph % (Auto) 9 L [place] % (Auto) 6 Eos % (Auto) 0 Baso % (Auto) 2 Neut # (Auto) 3.1 Lymph # (Auto) 0.3 L [place] # (Auto) 0.2 Eos # (Auto) 0.0 Baso # (Auto) 0.1 Immature Gran # (Auto) 0.01 H Absolute Nucleated RBC 0.00 Immature Gran % 0 Nucleated RBC % 0 PT 11.3 INR 1.1 APTT 22.2 23.1 VBG pH 7.47 VBG pCO2 33 L VBG pO2 46 VBG O2 Sat (Lionel) 84 L VBG Base Excess 1 Sodium 139 Potassium 4.0 Chloride 101 Carbon Dioxide 18.7 L Anion Gap 19 H BUN < 5 L Creatinine 0.8 Estim Creat Clear Calc 135.0 eGFR > 60 BUN/Creatinine Ratio 6 L Glucose 117 H Calculated Osmolality 275 Lactic Acid 2.3 H Calcium 9.7 Corrected Calcium 9.7 Phosphorus Magnesium 1.9 Total Bilirubin 1.3 H AST 244 H ALT 236 H Alkaline Phosphatase 58 Total Creatine Kinase 391 H Total Protein 8.3 H Albumin 4.8 Globulin 3.5 Albumin/Globulin Ratio 1.4 Triglycerides Cholesterol LDL Cholesterol, Calc HDL Cholesterol Cholesterol/HDL Ratio Lipase 174 H Ur Collection Type Clean Catch Urine Color Lt-Yellow Urine Clarity Clear Urine pH 7.5 H Ur Specific [place] 1.011 Urine Protein 1+ A Urine Glucose (UA) Negative Urine Ketones Trace Urine Blood Trace Urine Nitrite Negative Urine Bilirubin Negative Urine Urobilinogen (Auto) Negative Ur Leukocyte Esterase Negative Urine RBC 3 Urine WBC < 1 Ur Squamous Epith Cells 0 Urine Bacteria None Hyaline Casts < 1 Ur Culture Indicated? Not Indicated Urine Opiates Screen Negative Urine Fentanyl Screen Negative Ur Barbiturates Screen Positive A U Amphetamin/Meth Scrn Negative U Benzodiazepines Scrn Positive A U Cocaine Metab Screen Negative U Marijuana (THC) Screen Negative Ethyl Alcohol 48.2 H Misc Test Result Platelets confirmed 06/22/25 06/23/25 21:48 05:30 WBC 5.1 RBC 4.35 L Hgb 13.5 Hct 39.8 L MCV 92 MCH 31.0 MCHC 33.9 RDW Std Deviation 55.9 H Plt Count 67 L Neut % (Auto) 64 Lymph % (Auto) 22 [place] % (Auto) 13 H Eos % (Auto) 1 Baso % (Auto) 1 Neut # (Auto) 3.3 Lymph # (Auto) 1.1 [place] # (Auto) 0.7 Eos # (Auto) 0.0 Baso # (Auto) 0.1 Immature Gran # (Auto) 0.01 H Absolute Nucleated RBC 0.00 Immature Gran % 0 Nucleated RBC % 0 PT 11.3 INR 1.1 APTT 24.5 VBG pH VBG pCO2 VBG pO2 VBG O2 Sat (Lionel) VBG Base Excess Sodium 137 Potassium 3.5 D Chloride 101 Carbon Dioxide 23.1 Anion Gap 13 BUN 5 L Creatinine 0.8 Estim Creat Clear Calc 135.0 eGFR > 60 BUN/Creatinine Ratio 6 L Glucose 84 Calculated Osmolality 270 L Lactic Acid 1.1 Calcium 9.6 Corrected Calcium 9.6 Phosphorus 3.9 Magnesium 2.3 Total Bilirubin 2.2 H D AST 150 H ALT 187 H Alkaline Phosphatase 56 Total Creatine Kinase Total Protein 8.0 Albumin 4.7 Globulin 3.3 Albumin/Globulin Ratio 1.4 Triglycerides 61 Cholesterol 192 LDL Cholesterol, Calc 69 HDL Cholesterol 111 H Cholesterol/HDL Ratio 1.7 L Lipase Ur Collection Type Urine Color Urine Clarity Urine pH Ur Specific [place] Urine Protein Urine Glucose (UA) Urine Ketones Urine Blood Urine Nitrite Urine Bilirubin Urine Urobilinogen (Auto) Ur Leukocyte Esterase Urine RBC Urine WBC Ur Squamous Epith Cells Urine Bacteria Hyaline Casts Ur Culture Indicated? Urine Opiates Screen Urine Fentanyl Screen Ur Barbiturates Screen U Amphetamin/Meth Scrn U Benzodiazepines Scrn U Cocaine Metab Screen U Marijuana (THC) Screen Ethyl Alcohol Misc Test Result Platelets confirmed ABG Interpretation ABG results: 06/22/25 18:30 VBG pH 7.47 VBG pCO2 33 L VBG pO2 46 VBG Base Excess 1 Quality Measures Quality Measures none Assessment & Plan Assessment Current Active Medications: Generic Name Dose Route Start Last Admin Trade Name Freq PRN Reason Stop Dose Admin Chlordiazepoxide HCl 50 mg 06/23/25 12:00 Chlordiazepoxide Hcl 25 Mg Capsule PO 06/28/25 11:59 Q6HR WILMA Diazepam 10 mg 06/22/25 16:53 Diazepam Inj 5 Mg/Ml Vial 2 Ml IVP X1 PRN Breakthrough Agitation Diazepam 10 mg 06/22/25 20:51 Diazepam Inj 5 Mg/Ml Vial 2 Ml IVP 06/27/25 18:00 Q5MIN PRN SEIZURES Diazepam 20 mg 06/22/25 20:52 Diazepam Inj 5 Mg/Ml Vial 2 Ml IVP 06/27/25 16:52 Q2HR PRN CIWA SCORE 20-25 Diazepam 10 mg 06/22/25 20:52 Diazepam Inj 5 Mg/Ml Vial 2 Ml IVP 06/27/25 16:52 Q2HR PRN CIWA SCORE 14-19 Diazepam 5 mg 06/23/25 07:55 06/23/25 08:17 Diazepam Inj 5 Mg/Ml Vial 2 Ml IVP 06/27/25 16:52 5 mg Q2HR PRN Administration CIWA SCORE 8-13 Diazepam 2.5 mg 06/23/25 07:55 Diazepam Inj 5 Mg/Ml Vial 2 Ml IVP 06/28/25 07:59 Q2HR PRN CIWA 4-7 Enoxaparin Sodium 40 mg 06/23/25 09:00 06/23/25 08:13 Enoxaparin Sod Inj 40 Mg/0.4 Ml Syringe SC 07/07/25 08:59 40 mg QDAY WILMA Administration Folic Acid 1 mg 06/25/25 09:00 Folic Acid 1 Mg Tablet PO 07/25/25 08:59 QDAY WILMA Thiamine HCl 100 mg 06/25/25 09:00 Thiamine 100 Mg Tablet PO 07/25/25 08:59 QDAY WILMA Plan 30-year-old male with past medical history of alcohol use disorder, methamphetamine abuse, and alcohol withdrawal without seizures in the past and submitted to the hospital due to seizures likely secondary to alcohol withdrawal. #Alcohol withdrawal seizures #Alcohol abuse disorder #Alcohol withdrawal #Transaminitis #Fatty liver #Hyperbilirubinemia Patient came in initially with seizures, generalized tonic-clonic, and received multiple doses of Versed and phenytoin in the ED. Patient CIWA score was elevated throughout the day of admission and night up to 22. Patient CIWA score this morning was around 7 on my assessment. Patient's abdomen CT that show fatty liver infiltration patient's AST mildly elevated at 150 and ALT mildly elevated at 187, T bilirubin 2.2 today Plan: Diazepam 10 mg IV as needed every 5 minutes for seizures Librium 50 mg every 6 hours CIWA protocol with: ?Diazepam 2.5 (CIWA 4-7) ? Diazepam 5 mg (CIWA 8-13) ?Diazepam 10 mg (CIWA 14-19) ? Diazepam 20 mg (he will 20-25) Thiamine daily Will continue to monitor Disposition: Patient admitted to telemetry for alcohol withdrawal seizures Diet: clear liquid GI prophylaxis: none DVT prophylaxis: Lovenox Code: Full Case disclosed with Attending Dr. Clare Han PGY2 Disclaimer: Even though this this note was dictated by speech recognition and even though it was carefully revised there may still be minor errors in rotary cutter feeder due to voice recognition software. Attending Provider Attestation/Addendum I have examined the patient, reviewed labs and imaging findings, discussed the case with the resident(s), and reviewed entered orders. I agree with the plan of care as outlined in this note, with these additional summaries/recommendations: Patient is a 30-year-old male with a medical history of alcohol use disorder, pancreatitis, and fatty liver disease who presents to [facility] emergency department on 06/22/2025 with chief complaint of witnessed tonic-clonic seizure. Patient seen at bedside. No acute overnight events. Patient continues to have alcohol withdrawal. Significant bilateral tremor present. Patient does express desire to quit drinking. Patient had tonic-clonic seizure prior to presentation and additional seizure in the emergency room. Patient has multiple visits in the past for alcohol withdrawal. Patient diagnosed with alcohol withdrawal and alcohol withdrawal seizures. Continue CIWA and scheduled Librium. Continue IV fluids, folate, and thiamine. Seizure precautions. Patient was noted to have elevated lipase and appears to have some tenderness on palpation of abdomen although CT abdomen and pelvis did not show any evidence of pancreatitis. CT of abdomen did reveal diffuse fatty infiltration throughout the liver. Patient does appear to have some underlying synthetic liver dysfunction with thrombocytopenia and hyperbilirubinemia although no evidence of cirrhosis at this time. Transaminitis present most likely secondary to alcohol use. No evidence of GI bleed at this time. Patient will be admitted to the hospital. Please see residents note for additional details and management. Dr. Clare MD
--- NOTE | 2025-06-23 15:55 | PC.SS ---
Rounding: On CIWA protocol, DC plan home 1-2 days
[2025-06-23] MEDS: DIAZEPAM INJ 5 MG/ML VIAL 2 ML 10 MG IVP ×3 (22:45→23:42)
[2025-06-23] MEDS: HALOPERIDOL LACT INJ 5 MG/ML VIAL IM (23:28)
[2025-06-23] MEDS: PHENobarbital Inj 130 MG, SODIUM CHLORIDE 0.9% FLUSH 12 ML IVP (23:50)
[2025-06-24] VITALS (29 sets, daily range): BP systolic 86–156; BP diastolic 59–113; PULSE 54–117; RESP 13–31; TEMP 35.8–36.6; O2SAT 88–100; BMI 24.3
[2025-06-24] MEDS: MIDAZOLAM INJ 1 MG/ML VIAL 2 ML 2 MG IVP (00:02)
--- NOTE | 2025-06-24 00:04 | PD.RESCONSUL ---
HPI Data of Consult Requesting Physician: Travis Sparks MD Admitting Provider: Fabio Nolasco MD Attending Provider: Aye Rinaldi MD Primary Care Provider: Physician No Primary/Family Consult Narrative History of present illness: RE: Sukhwinder Bey DATE OF CONSULTATION: 06/24/2025 00:06 Location of this patient is 266 on Telemetry REASON FOR CONSULTATION: 30 year old male admitted for altered mentation in the setting of alcohol withdrawal. Repeated code greys between 10pm-12 am CIWA >25 despite Diazepam 20mg + Haldol 5mg + Benadryl 50mg + Phenobarb 260mg IMPRESSION: Alcohol withdrawal cc:: cc: Travis Sparks MD Review of Systems Review of Systems ROS Unobtainable: unobtainable due to mental status Exam Vital Signs Temp Pulse Resp BP Pulse Ox O2 Del Method 97.7 F 100 22 H 114/80 98 Room Air 06/23/25 20:00 06/23/25 20:00 06/23/25 20:00 06/23/25 20:00 06/23/25 20:00 06/23/25 20:00 Narrative Exam Constitutional Alert, oriented x1, combative HEENT Vision grossly intact. Patent nares. Trachea midline. Respiratory Chest normal on inspection and clear to auscultation bilaterally. Cardiovascular S1 and S2 audible, RRR. No murmurs or carotid bruit. No gross JVD. Abdominal Soft and non tender to palpation in all quadrants. BS + Genitourinary No bladder tenderness, no flank pain. Normal to palpation. Musculoskeletal Extremities tone within normal limits. No LE edema. Restraints b/l UE Neurological CN II - XII grossly intact. Extremity motor and sensation grossly intact. Skin Warm, dry and intact. No apparent lesions. Psychiatric Irrational, combative and angry. Results Labs 06/23/25 05:30 06/23/25 05:30 Labs: Short CBC 06/23/25 Range/Units 05:30 WBC 5.1 (3.8-10.6) Thou/mm3 Hgb 13.5 (13.5-16.0) g/dL Hct 39.8 L (41.0-53.0) % Plt Count 67 L (140-440) Thou/mm3 BMP 06/23/25 05:30 Sodium 137 Potassium 3.5 D Chloride 101 Carbon Dioxide 23.1 BUN 5 L Creatinine 0.8 Glucose 84 Calcium 9.6 Liver Function 06/23/25 Range/Units 05:30 Total Bilirubin 2.2 H D (0.3-1.2) mg/dL AST 150 H (0-34) U/L ALT 187 H (10-49) U/L Alkaline Phosphatase 56 (46-116) U/L Albumin 4.7 (3.5-5.0) gm/dL ABG Interpretation ABG results: 06/22/25 18:30 VBG pH 7.47 VBG pCO2 33 L VBG pO2 46 VBG Base Excess 1 Quality Measures Quality Measures none Medications Home Medications and Allergies Allergies Allergy/AdvReac Type Severity Reaction Status Date / Time No Known Allergies Allergy Verified 06/22/25 12:58 Visit Medications Chlordiazepoxide HCl (Chlordiazepoxide Hcl 25 Mg Capsule) 50 mg PO Q6HR WILMA On Hold: 06/23/25 23:14 Stop: 06/28/25 11:59 Last Admin: 06/23/25 17:53 Dose: 50 mg Diazepam (Diazepam Inj 5 Mg/Ml Vial 2 Ml) 10 mg IVP Q5MIN PRN PRN Reason: SEIZURES Stop: 06/27/25 18:00 Diazepam (Diazepam Inj 5 Mg/Ml Vial 2 Ml) 20 mg IVP Q2HR PRN PRN Reason: CIWA SCORE 20-25 Stop: 06/27/25 16:52 Diazepam (Diazepam Inj 5 Mg/Ml Vial 2 Ml) 10 mg IVP Q2HR PRN PRN Reason: CIWA SCORE 14-19 Stop: 06/27/25 16:52 Diazepam (Diazepam Inj 5 Mg/Ml Vial 2 Ml) 5 mg IVP Q2HR PRN PRN Reason: CIWA SCORE 8-13 Stop: 06/27/25 16:52 Last Admin: 06/23/25 23:02 Dose: 5 mg Diazepam (Diazepam Inj 5 Mg/Ml Vial 2 Ml) 2.5 mg IVP Q2HR PRN PRN Reason: CIWA 4-7 Stop: 06/28/25 07:59 Last Admin: 06/23/25 15:51 Dose: 2.5 mg Enoxaparin Sodium (Enoxaparin Sod Inj 40 Mg/0.4 Ml Syringe) 40 mg SC QDAY WILMA Stop: 07/07/25 08:59 Last Admin: 06/23/25 08:13 Dose: 40 mg Folic Acid (Folic Acid 1 Mg Tablet) 1 mg PO QDAY [facility] Stop: 07/25/25 08:59 Dexmedetomidine/Sodium Chloride (Precedex Ivpb) 400 mcg in 100 mls @ 3.795 mls/hr IV .Q24H PRN; Protocol PRN Reason: Per PROTOCOL Stop: 07/24/25 00:01 Midazolam HCl (Versed Pf Inj In Ns Premix) 100 mg in 100 mls @ 1 mls/hr IV .Q24H PRN; Protocol PRN Reason: PER PROTOCOL Stop: 06/29/25 00:03 Thiamine HCl (Thiamine 100 Mg Tablet) 100 mg PO QDAY [facility] Stop: 07/25/25 08:59 Discontinued Medications Chlordiazepoxide HCl (Chlordiazepoxide Hcl 25 Mg Capsule) 50 mg PO Q8HR [facility] Stop: 06/27/25 16:59 Last Admin: 06/23/25 05:57 Dose: 50 mg Phenobarbital Sodium 130 mg/ (Sodium Chloride 12 ml) 0 mg IVP X1 ONE Stop: 06/22/25 13:25 Last Admin: 06/22/25 13:58 Dose: 130 mg Phenobarbital Sodium 130 mg/ (Sodium Chloride 12 ml) 0 mg IVP X1 ONE Stop: 06/23/25 23:51 Phenobarbital Sodium 130 mg/ (Sodium Chloride 12 ml) 0 mg IVP X1 ONE Stop: 06/23/25 23:55 Diazepam (Diazepam Inj 5 Mg/Ml Vial 2 Ml) 10 mg IVP X1 PRN PRN Reason: Breakthrough Agitation Last Admin: 06/23/25 22:45 Dose: 10 mg Diazepam (Diazepam Inj 5 Mg/Ml Vial 2 Ml) 10 mg IVP Q2HR PRN PRN Reason: CIWA SCORE 20-25 Stop: 06/27/25 16:52 Diazepam (Diazepam Inj 5 Mg/Ml Vial 2 Ml) 5 mg IVP Q2HR PRN PRN Reason: CIWA SCORE 14-19 Stop: 06/27/25 16:52 Last Admin: 06/22/25 18:36 Dose: 5 mg Diazepam (Diazepam Inj 5 Mg/Ml Vial 2 Ml) 2.5 mg IVP Q2HR PRN PRN Reason: CIWA SCORE 8-13 Stop: 06/27/25 16:52 Last Admin: 06/23/25 00:31 Dose: 2.5 mg Diazepam (Diazepam Inj 5 Mg/Ml Vial 2 Ml) 10 mg IVP Q4HR PRN PRN Reason: SEIZURES Stop: 06/27/25 18:00 Diazepam (Diazepam Inj 5 Mg/Ml Vial 2 Ml) 5 mg IVP X1 ONE Stop: 06/22/25 20:50 Last Admin: 06/22/25 21:23 Dose: 5 mg Diazepam (Diazepam Inj 5 Mg/Ml Vial 2 Ml) 10 mg IVP X1 ONE Stop: 06/23/25 23:25 Last Admin: 06/23/25 23:34 Dose: 10 mg Diazepam (Diazepam Inj 5 Mg/Ml Vial 2 Ml) 10 mg IVP X1 ONE Stop: 06/23/25 23:33 Last Admin: 06/23/25 23:42 Dose: 10 mg Diphenhydramine HCl (Diphenhydramine Inj 50 Mg/Ml Vial) 25 mg IVP X1 ONE Stop: 06/23/25 23:29 Diphenhydramine HCl (Diphenhydramine Inj 50 Mg/Ml Vial) 25 mg IVP X1 ONE Stop: 06/23/25 23:43 Haloperidol Lactate (Haloperidol Lact Inj 5 Mg/Ml Vial) 5 mg IM X1 ONE Stop: 06/23/25 23:30 Hydralazine HCl (Hydralazine Inj 20 Mg/Ml Vial) 15 mg IVP X1 ONE Stop: 06/22/25 15:15 Last Admin: 06/22/25 15:33 Dose: 15 mg Lactated Ringer's (Lactated Ringers) 1,000 mls @ 999 mls/hr IV .Q1H1M ONE Stop: 06/22/25 14:18 Last Infusion: 06/22/25 14:22 Dose: Infused Thiamine HCl 250 mg/ Sodium (Chloride) 102.5 mls @ 205 mls/hr IV X1 ONE Stop: 06/22/25 13:50 Last Infusion: 06/22/25 14:31 Dose: Infused Lactated Ringer's (Lactated Ringers) 1,000 mls @ 999 mls/hr IV .Q1H1M ONE Stop: 06/22/25 17:03 Last Infusion: 06/22/25 17:22 Dose: Infused Magnesium Sulfate (Magnesium Sulfate Ivpb) 2 gm in 50 mls @ 25 mls/hr IV X1 ONE Stop: 06/22/25 19:53 Last Admin: 06/22/25 18:41 Dose: 25 mls/hr Lorazepam (Lorazepam 0.5 Mg Tablet) 4 mg PO X1 ONE Stop: 06/22/25 20:50 Last Admin: 06/22/25 21:16 Dose: 4 mg Midazolam HCl (Midazolam Inj 1 Mg/Ml Vial 2 Ml) 2 mg IVP X1 ONE Stop: 06/22/25 13:17 Last Admin: 06/22/25 13:19 Dose: 2 mg Midazolam HCl (Midazolam Inj 1 Mg/Ml Vial 2 Ml) 4 mg IVP X1 ONE Stop: 06/22/25 15:32 Last Admin: 06/22/25 15:34 Dose: 4 mg Nicotine (Nicotine Patch 21 Mg/24 Hr Patch.Td24) 21 mg TOP X1 ONE Stop: 06/23/25 23:40 Phenytoin Sodium (Phenytoin Inj 50 Mg/Ml Vial 2 Ml) 130 mg IV X1 ONE Stop: 06/22/25 13:18 Last Admin: 06/22/25 14:02 Dose: Not Given Assessment & Plan Plan 30-year-old male with past medical history of alcohol use disorder, methamphetamine abuse, and alcohol withdrawal without seizures in the past and submitted to the hospital due to seizures likely secondary to alcohol withdrawal. NEURO Acute metabolic encephalopathy Dx: - Patient came in initially with seizures, generalized tonic-clonic, and received multiple doses of Versed and phenytoin in the ED. - CIWA score was elevated 22-25 - Per Day team assessment, CIWA score this morning was around 7 Rx: - Started Precedex gtt - continue CIWA protocol : Diazepam 2.5 (CIWA 4-7) Diazepam 5 mg (CIWA 8-13) Diazepam 10 mg (CIWA 14-19) Diazepam 20 mg (he will 20-25) - Phenobarbitol 260mg ivp for breakthrough agitation x1 - Will add Versed gtt if CIWA remains >15 - Stop Librium as high risk of alcohol use on DC - Banana bag with IV Mg, IV and PO Thiamaine, IV and PO Folic acid ordered. - RAAS goal at -1 overnight, titrate down during the day CVS No active problems PULM No active problems GI/Hep Transaminitis Fatty liver Hyperbilirubinemia Dx: - LFT: AST mildly elevated at 150 and ALT mildly elevated at 187, T bilirubin 2.2 today - Abdomen CT : fatty liver infiltration Rx: - Continue IVF hydration with LR @ 125 cc/h x1 bag - NPO for now - Avoid hepatotoxic drugs RENAL No active problems HEME/ONC No active problems ENDO No active problems ID No active problems ICU Health maintenance: Dispo: Admit to ICU for alcohol withdrawal Diet: NPO DVT ppx: Enoxaparin 40mg SC daily GI ppx: Protonix 40mg qD Sedation: Yes, Precedex gtt IV lines: 2 pIV Central line: No Arterial line: No Day: Yes (started 11/17/23 - Code status: FULL CODE Plan of care discussed with attending Dr Rinaldi, Fabio Nolasco MD PGY 3 This document was compiled using speech recognition software. Grammatical errors can be an occasional consequence of this system due to software limitations. Attending Provider Attestation/Addendum After examination of the patient and review of the clinical data I feel that this patient needs admission to the hospital for further treatment/evaluation. TOTAL CC TIME: 45 MIN TOTAL TIME: 45 Minutes of direct medical management and planning of care. I Aye Rinaldi MD, attest that I was physically present for aden portions of evaluation, and examined patient, labs and imagings and plan of care were discussed with IM residents team, and I agree with the findings and plans documented above.
[2025-06-24] MEDS: DEXMEDETOMIDINE 400 MCG IVPB 400 MCG/100 ML BAG IV ×3 (00:05→21:41)
[2025-06-24] MEDS: PHENobarbital Inj 130 MG, SODIUM CHLORIDE 0.9% FLUSH 12 ML IVP (00:05)
[2025-06-24] MEDS: RINGERS LACTATED 1000 ML 1,000 ML 125 ML IV (00:56)
[2025-06-24] MEDS: POTASSIUM CHL 10 mEq IVPB 10 MEQ/100 ML BAG 100 MEQ IV ×6 (01:04→11:42)
[2025-06-24] MEDS: Magnesium Sulfate 2 GM Ivpb 2 GM/50 ML BAG IV (01:14)
[2025-06-24] MEDS: NICOTINE PATCH 21 MG/24 HR PATCH.TD24 TOP (02:01)
[2025-06-24 05:40] LABS: Basophils # (Auto) 0.1 Thou/mm3 (0.0-0.2); Basophils % (Auto) 1 % (0-2.5); Eosinophils # (Auto) 0.1 Thou/mm3 (0.0-0.5); Eosinophils % (Auto) 2 % (0-10); Hematocrit 37.5 % (41.0-53.0); Hemoglobin 12.9 g/dL (13.5-16.0); Immature Granulocytes Auto 0.01 Thou/mm3 (0.00-0.00); Lymphocytes # (Auto) 1.6 Thou/mm3 (1.0-4.8); Lymphocytes % (Auto) 29 % (10-50); Mean Corpuscular HGB Conc 34.4 g/dl (31.0-37.0); Mean Corpuscular Hemoglobin 31.2 pg (25.0-35.0); Mean Corpuscular Volume 91 fL (80-100); Monocytes # (Auto) 0.6 Thou/mm3 (0.0-0.8); Monocytes % (Auto) 10 % (0-12); Neutrophils # (Auto) 3.2 Thou/mm3 (1.8-7.7); Neutrophils % (Auto) 58 % (37-80); Nucleated Red Blood Cell # 0.00 Thou/mm3 (0.00-0.00); Nucleated Red Blood Cell % 0 /100 WBC (0); Platelet Count 82 Thou/mm3 (140-440); RDW Standard Deviation 52.5 fL (35.1-43.9); Red Blood Count 4.13 Miln/mm3 (4.50-5.90); White Blood Count 5.5 Thou/mm3 (3.8-10.6)
[2025-06-24 06:08] LABS: Alanine Aminotransferase 141 U/L (10-49); Albumin, Serum 4.2 gm/dL (3.5-5.0); Albumin/Globulin Ratio 1.4 (1.2-2.2); Alkaline Phosphatase 52 U/L (46-116); Anion Gap 11 (7-16); Aspartate Amino Transferase 111 U/L (0-34); BUN/Creatinine Ratio 7 Ratio (12-20); Bilirubin,Total 1.9 mg/dL (0.3-1.2); Blood Urea Nitrogen < 5 mg/dL (9-23); Calcium 9.2 mg/dL (8.3-10.6); Calcium (Corrected) 9.2 mg/dL (8.5-10.1); Carbon Dioxide 24.6 mMol/L (20.0-31.0); Chloride 103 mMol/L (98-107); Creatinine (Component) 0.7 mg/dL (0.6-1.3); Estimated Creatinine Clearance 154.3 mL/min (>60); Globulin 3.0 gm/dL (2.3-3.5); Glucose 115 mg/dL (74-106); Magnesium 2.5 mg/dL (1.6-2.6); Osmolality,Calculated 275 (275-295); Phosphorous 3.3 mg/dL (2.4-5.1); Potassium 3.4 mMol/L (3.4-5.1); Sodium 139 mMol/L (136-145); Total Protein 7.2 gm/dL (5.7-8.2); eGFR > 60 See Note
--- NOTE | 2025-06-24 07:20 | EKG_ITS ---
[facility] Test Date: 2025-06-24 Pat Name: FABRICIO DAY [facility] Personnel Records Clerk: TAMAR : 1995 Requested By: Joseph Olson Order Number: [id number] Reading MD: Joseph Olson Measurements Intervals [place] Rate: 53 P: 44 IA: 166 QRS: 37 QRSD: 83 T: 59 QT: 485 QTc: 456 Interpretive Statements SINUS BRADYCARDIA MARKED ST ELEVATION, CONSIDER INFERIOR INJURY ACUTE [place] Compared to ECG 06/22/2025 13:05:51 ST (T wave) deviation now present Myocardial infarct finding now present Sinus tachycardia no longer present /store/[id number]
--- NOTE | 2025-06-24 08:19 | EKG_ITS ---
[facility] Test Date: 2025-06-24 Pat Name: FABRICIO DAY [facility] Acoustic Warfare Analyst: SARAH : 1995 Requested By: Alejo Dale Order Number: [id number] Reading MD: Alejo Dale Measurements Intervals [place] Rate: 61 P: 22 MI: 153 QRS: 40 QRSD: 86 T: 44 QT: 427 QTc: 434 Interpretive Statements SINUS RHYTHM MINIMAL VOLTAGE CRITERIA FOR LVH, CONSIDER NORMAL VARIANT ST ELEVATION, PROBABLY EARLY REPOLARIZATION Compared to ECG 06/24/2025 07:32:57 Early repolarization now present Sinus bradycardia no longer present Myocardial infarct finding no longer present ST (T wave) deviation still present /store/S0/[id number]
[2025-06-24] MEDS: ENOXAPARIN SOD INJ 40 MG/0.4 ML SYRINGE SC (08:41)
[2025-06-24] MEDS: THIAMINE INJ 100 MG/ML VIAL 2 ML IVP (08:42)
[2025-06-24] MEDS: FOLIC ACID INJ 1 MG/0.2 ML IVP (08:42)
[2025-06-24] MEDS: DIAZEPAM INJ 5 MG/ML VIAL 2 ML 10 MG IVP ×4 (08:54→19:53)
--- NOTE | 2025-06-24 09:59 | ESPR_ITS ---
<Statement entered by Joseph Street MD - 06/24/25 19:45> Patient seen and examined at bedside. I discussed and supervised with the internet marketing intern physician who took care of this patient. I personally saw and examined the patient. I agree with most of the assessment and plan. Patient was titrated off Precedex drip in the morning. Patient remained agitated and combative during the day, requiring Haldol due to severe agitation. Precedex drip was resumed and eventually titrated off late evening. Resumed Librium, initiated gabapentin for additional CIWA treatment. Patient remains on CIWA protocol. Plan of care discussed with attending Dr. Key. Joseph Street MD PGY-2 Documentation for date of: 06/24/25 Subjective Subjective Interval history: Patient is 30 yo M PMH of alcohol use disorder, alcohol withdrawal without seizures, methamphetamine use, and left knee tumor since childhood who brought in by EMS for evaluation regarding witnessed tonic-clonic seizure. Patient was witnessed to have tonic-clonic seizure, landing on his back, patient sustained 1 cm gaping laceration to the scalp. ED course: Patient brought to ED by ambulance; was shaking initially and given 2mg Versed and 130mg phenobarbital. As Dr. Oconnell and I were obtaining history & physical, patient had a 2nd witnessed tonic-clonic seizure last more than 1 but less than 5 minutes, with drooling, gurgling, and blood-tinged sputum. Not status epilepticus, as first seizure was at approximately 11:40 (before ED arrival) and second (in ED) was around 1500. Seizure spontaneously resolved and patient had post-ictal state with fever. During history pre-seizure, patient stated that he had consumed 3 tall cans of beer today, normally he drinks 5 tall cans a day; he has been doing this for 10 years. Also endorses previous marijuana use. Mother was at bedside; states that he had been drinking more than 5 tall cans a day, but had not been drinking for the last few days. Patient was to be admitted for management of alcohol withdrawal seizures. Past medical history: PMH of alcohol use disorder, alcohol withdrawal without seizures, methamphetamine use, and left knee tumor since childhood history of acute pancreatitis Past surgical history: No pertinent surgical history Social history: Endorses significant alcohol use disorder (5 tall cans/day for approximately 10 years); also endorses previous marijuana and methamphetamine use Family history: No pertinent family history Interval History 06/24/2025: Patient overnight was upgraded to ICU after being agitated in the setting of alcohol withdrawal, needing to be sedated on precedex. After being sedated, patient's vitals have been stable with bradycardia to ~50 occuring in the morning. Patient was asymptomatic. EKG x2 was ordered showing early repolarization with sinus bradycardia. Troponins were ordered and were negative. Patient was transiently taken off of precedex ggt this morning. Initially he was able to communicate with us verbally, later in the day he became agitated and was put back on the precedex drip and was also given diazepam, haldol to calm him down. Patient has a normocytic anemia of 12.9 hgb, thrombocytopenia 82 and no signs/symptoms of bleeding. Patient's LFT's are down trending. Viral Hepatitis panel was ordered and found to be non reactive. Patient continues to be on CIWA protocol. Exam Vital Signs Temp Pulse Resp BP Pulse Ox O2 Del Method 97.9 F 64 15 156/109 H 100 Room Air 06/24/25 08:00 06/24/25 09:00 06/24/25 09:00 06/24/25 09:00 06/24/25 09:00 06/24/25 08:00 Narrative Exam General: Sedated, laying in bed Skin: Warm, dry, intact, no obvious rash. HENT: Posterior head wound cleanly dressed; PERRLA, not icteric. External ears normal. No rhinorrhea. Moist mucous membranes Cardiovascular: Bradycardia, regular rhythm, no murmur, +S1/S2. Respiratory: Lungs CTAB GI: Soft, nontender, non-distended. No guarding or rebound tenderness. Extremities: bilateral upper extremity restraints; no edema, no cyanosis, no clubbing. Extremity pulses present Neuro: GCS 10 on sedation Objective Labs 06/24/25 04:30 06/24/25 04:30 Labs: Laboratory Results - last 24 hr 06/24/25 04:30 WBC 5.5 RBC 4.13 L Hgb 12.9 L Hct 37.5 L MCV 91 MCH 31.2 MCHC 34.4 RDW Std Deviation 52.5 H Plt Count 82 L D Neut % (Auto) 58 Lymph % (Auto) 29 [place] % (Auto) 10 Eos % (Auto) 2 Baso % (Auto) 1 Neut # (Auto) 3.2 Lymph # (Auto) 1.6 [place] # (Auto) 0.6 Eos # (Auto) 0.1 Baso # (Auto) 0.1 Immature Gran # (Auto) 0.01 H Absolute Nucleated RBC 0.00 Immature Gran % 0 Nucleated RBC % 0 Sodium 139 Potassium 3.4 Chloride 103 Carbon Dioxide 24.6 Anion Gap 11 BUN < 5 L Creatinine 0.7 Estim Creat Clear Calc 154.3 eGFR > 60 BUN/Creatinine Ratio 7 L Glucose 115 H Calculated Osmolality 275 Calcium 9.2 Corrected Calcium 9.2 Phosphorus 3.3 Magnesium 2.5 Total Bilirubin 1.9 H AST 111 H ALT 141 H Alkaline Phosphatase 52 Total Protein 7.2 Albumin 4.2 D Globulin 3.0 Albumin/Globulin Ratio 1.4 ABG Interpretation ABG results: 06/22/25 18:30 VBG pH 7.47 VBG pCO2 33 L VBG pO2 46 VBG Base Excess 1 Quality Measures Quality Measures none Assessment & Plan Assessment Current Active Medications: Generic Name Dose Route Start Last Admin Trade Name Freq PRN Reason Stop Dose Admin Chlordiazepoxide HCl 50 mg 06/23/25 12:00 06/23/25 17:53 Chlordiazepoxide Hcl 25 Mg Capsule PO 06/28/25 11:59 50 mg On Hold: 06/23/25 23:14 Q6HR WILMA Administration Diazepam 10 mg 06/22/25 20:51 Diazepam Inj 5 Mg/Ml Vial 2 Ml IVP 06/27/25 18:00 Q5MIN PRN SEIZURES Diazepam 20 mg 06/22/25 20:52 Diazepam Inj 5 Mg/Ml Vial 2 Ml IVP 06/27/25 16:52 Q2HR PRN CIWA SCORE 20-25 Diazepam 10 mg 06/22/25 20:52 06/24/25 08:54 Diazepam Inj 5 Mg/Ml Vial 2 Ml IVP 06/27/25 16:52 10 mg Q2HR PRN Administration CIWA SCORE 14-19 Diazepam 5 mg 06/23/25 07:55 06/23/25 23:02 Diazepam Inj 5 Mg/Ml Vial 2 Ml IVP 06/27/25 16:52 5 mg Q2HR PRN Administration CIWA SCORE 8-13 Diazepam 2.5 mg 06/23/25 07:55 06/23/25 15:51 Diazepam Inj 5 Mg/Ml Vial 2 Ml IVP 06/28/25 07:59 2.5 mg Q2HR PRN Administration CIWA 4-7 Enoxaparin Sodium 40 mg 06/23/25 09:00 06/24/25 08:41 Enoxaparin Sod Inj 40 Mg/0.4 Ml Syringe SC 07/07/25 08:59 40 mg QDAY WILMA Administration Folic Acid 1 mg 06/27/25 09:00 Folic Acid 1 Mg Tablet PO 07/27/25 08:59 QDAY WILMA Folic Acid 1 mg 06/24/25 09:00 06/24/25 08:42 Folic Acid Inj 1 Mg/0.2 Ml IVP 06/27/25 08:59 1 mg QDAY WILMA Administration Dexmedetomidine/Sodium Chloride 400 mcg in 100 mls @ 3.795 mls/hr 06/24/25 02:53 06/24/25 06:00 Precedex Ivpb IV 07/24/25 00:01 0.8 mcg/kg/hr .Q24H PRN 15.178 mls/hr Per PROTOCOL Titration Protocol 0.2 MCG/KG/HR Potassium Chloride 10 meq in 100 mls @ 100 mls/hr 06/24/25 07:23 06/24/25 09:30 Kcl Ivpb IV 06/24/25 11:22 100 mls/hr Q1H WILMA Administration Pantoprazole Sodium 40 mg 06/24/25 00:20 06/24/25 08:42 Pantoprazole Inj 40 Mg Vial IVP 07/24/25 00:19 40 mg QDAY WILMA Administration Thiamine HCl 100 mg 06/24/25 09:00 06/24/25 08:42 Thiamine Inj 100 Mg/Ml Vial 2 Ml IVP 06/27/25 08:59 100 mg QDAY WILMA Administration Thiamine HCl 100 mg 06/27/25 09:00 Thiamine 100 Mg Tablet PO 07/27/25 08:59 QDAY WILMA Plan 30-year-old male with past medical history of alcohol use disorder, methamphetamine abuse, and alcohol withdrawal without seizures in the past and submitted to the hospital due to seizures likely secondary to alcohol withdrawal. NEURO #Acute metabolic encephalopathy Likely due to Alcohol withdrawal. Dx: - Patient came in initially with seizures, generalized tonic-clonic, and received multiple doses of Versed and phenytoin in the ED. - CIWA score was elevated 22-25 - Per Day team assessment, CIWA score this morning was around 7 Rx: - On Precedex gtt (was taken off transiently on 06/24 before becoming agitated again) - continue CIWA protocol : Diazepam 2.5 (CIWA 4-7) Diazepam 5 mg (CIWA 8-13) Diazepam 10 mg (CIWA 14-19) Diazepam 20 mg (he will 20-25) - Phenobarbitol 260mg ivp for breakthrough agitation x1 - Will add Versed gtt if CIWA remains >15 - Stop Librium as high risk of alcohol use on DC - Banana bag with IV Mg, IV and PO Thiamaine, IV and PO Folic acid given. - RAAS goal at -1 overnight, titrate down during the day CVS #Bradycardia Suspecting due to medication, patient asymptomatic Dx: -EKG x2 ordered; showing early repolarization via j wave morphology -Patient denied having shortness of breath or chest pain or any other symptoms. -Troponins negative. RRx: -Will continue to monitor for signs/symptoms related to ACS. PULM No active problems GI/Hep Transaminitis Fatty liver Hyperbilirubinemia Patient came in with elevated but downtrending LFT's. Patient stated he stopped drinking a few days before admission. Likely due to chronic alcohol use even though classic 2:1 ratio ast/alt not currently present, may have been present closer to the time of most recent alcohol ingestion. Dx: - LFT's downtrending - Abdomen CT : fatty liver infiltration - Hepatitis viral panel non reactive Rx: - Continue IVF hydration with LR @ 125 cc/h x1 bag - NPO for now - Avoid hepatotoxic drugs RENAL No active problems HEME/ONC #Normocytic Anemia Suspecting due to chronic use of alcohol Dx: -Hgb 12.9 06/24 RRx: -Continue to monitor hgb and for signs/symptoms of bleeding. #Thromobocytopenia Suspecting due to chronic use of alcohol Dx: -PLT 82 06/24 RRx: -Continue to monitor hgb and for signs/symptoms of bleeding. ENDO ID No active problems ICU Health maintenance: Dispo: Admit to ICU for alcohol withdrawal Diet: NPO DVT ppx: Enoxaparin 40mg SC daily GI ppx: Protonix 40mg qD Sedation: Yes, Precedex gtt IV lines: 2 pIV Central line: No Arterial line: No Day: no Code status: FULL CODE Patient plan of care was discussed with the attending physician, Dr. Key & senior resident Dr. Urmila JUAREZ PGY-1
[2025-06-24 10:16] LABS: Troponin I < 0.020 ng/mL (0.0-0.045)
[2025-06-24 10:58] LABS: Hepatitis A Antibody IgM Non Reactive (Non React); Hepatitis B Core Antibody IgM Non Reactive (Non React); Hepatitis B Surface Antigen Non Reactive (Non React); Hepatitis C Antibody Non Reactive (Non React)
[2025-06-24] MEDS: DIAZEPAM INJ 5 MG/ML VIAL 2 ML 20 MG IVP (11:12)
[2025-06-24] MEDS: HALOPERIDOL LACT INJ 5 MG/ML VIAL IM (11:14)
--- NOTE | 2025-06-24 13:56 | PD.INTPROG ---
Documentation for date of: 06/24/25 Subjective Subjective Interval history: This is a 30-year-old male who was admitted to the hospital on 22 June for alcohol withdrawal and alcohol related seizures. He was started on phenobarbital as well as some Librium with as needed Versed for CIWA. Yesterday he was noted to be agitated and combative. In the evening the decision was made to transfer him to the ICU to start him on Precedex. Overnight he has remained on Precedex and has done well. Today when the Precedex was held he once again became agitated and combative. Precedex was resumed the patient was given some Haldol along with some Versed. He has had no further seizures since arrival. he currently will wake up and is aggressive and in restraints. He is afebrile with good urinary output. Critical Care Note Critical care time (min.): 0 Exam Vital Signs Temp Pulse Resp BP Pulse Ox O2 Del Method 98 F 58 L 13 151/103 H 99 Room Air 06/24/25 12:00 06/24/25 13:00 06/24/25 13:00 06/24/25 13:00 06/24/25 12:00 06/24/25 12:00 Narrative Exam General-normal body habitus, lethargic but when aroused very aggressive and combative. Confused and delirious HEENT-normocephalic, atraumatic, sclera icteric, oral mucosa is dry, adequate dentition, unable to fully evaluate the oropharynx Chest-lungs clear to auscultation bilaterally, heart rate regular rhythmic, no bruits murmurs auscultated times exam, no increased work of breathing Abdomen-soft, nontender, bowel sounds present, no rebound or guarding Extremities-no edema lower extremities, pulses palpable, no clubbing, no cyanosis, no mottling, moves all 4 Drips Precedex Physical Exam Completion Physical Exam Complete?: Yes Objective - Curriculum Development Specialist Labs 06/25/25 04:15 06/25/25 04:15 Labs: Laboratory Results - last 24 hr 06/24/25 04:30 WBC 5.5 RBC 4.13 L Hgb 12.9 L Hct 37.5 L MCV 91 MCH 31.2 MCHC 34.4 RDW Std Deviation 52.5 H Plt Count 82 L D Neut % (Auto) 58 Lymph % (Auto) 29 [place] % (Auto) 10 Eos % (Auto) 2 Baso % (Auto) 1 Neut # (Auto) 3.2 Lymph # (Auto) 1.6 [place] # (Auto) 0.6 Eos # (Auto) 0.1 Baso # (Auto) 0.1 Immature Gran # (Auto) 0.01 H Absolute Nucleated RBC 0.00 Immature Gran % 0 Nucleated RBC % 0 Sodium 139 Potassium 3.4 Chloride 103 Carbon Dioxide 24.6 Anion Gap 11 BUN < 5 L Creatinine 0.7 Estim Creat Clear Calc 154.3 eGFR > 60 BUN/Creatinine Ratio 7 L Glucose 115 H Calculated Osmolality 275 Calcium 9.2 Corrected Calcium 9.2 Phosphorus 3.3 Magnesium 2.5 Total Bilirubin 1.9 H AST 111 H ALT 141 H Alkaline Phosphatase 52 Troponin I < 0.020 Total Protein 7.2 Albumin 4.2 D Globulin 3.0 Albumin/Globulin Ratio 1.4 Hepatitis A IgM Ab Non Reactive Hep Bs Antigen Non Reactive Hep B Core IgM Ab Non Reactive Hepatitis C Antibody Non Reactive Assessment & Plan Additional Plan Additional Plan: In summary is a 30-year-old male with alcohol withdrawal who was admitted to the ICU for Precedex drip due to agitation 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 Continue with his Precedex and Librium. Add on gabapentin. Continue thiamine and folate. Acute encephalopathy-in the setting of alcohol withdrawal and likely related to DTs. Patient had a seizure on arrival to the hospital on the fourth however has not had any repeat seizure activity since then therefore unlikely for his confusion to be related to any postictal status at this point in time. CV Tachycardia-in the setting of active withdrawal Resp Stable Renal Hypokalemia-replete with IV K GI Transaminitis-patient has elevated LFTs though not in the classic 80s AST greater than ALT distribution for alcoholic hepatitis. Will obtain a acute viral panel. They do appear to be trending down from arrival. His CT from arrival does show diffuse fatty infiltrate throughout the liver with no particular mass or gallstones. Also no stranding noted around the pancreas. Endo Stable Heme Thrombocytopenia-likely secondary to alcohol abuse. No active bleeding, no need for transfusion DVT prophylaxis-Lovenox ID Stable Case discussed with ICU team Labs, imaging and records reviewed Approximately 40 minutes required for evaluation, exam, review, intervention, discussion formulation of plan of care for this unfortunate patient with alcohol scale Provider Notation Provider Notation: Although this document has been carefully reviewed, there may still be some phonetic and other typographical errors. These errors are purely grammatical due to imperfections in the software program and should not be construed in any way to compromise the substance of the patient's medical care during this visit. Thank you for the opportunity and privilege in assisting you with this patient's care and management.
[2025-06-24] MEDS: GABAPENTIN 300 MG CAPSULE 600 MG PO ×2 (14:56→20:36)
[2025-06-24] MEDS: DIAZEPAM INJ 5 MG/ML VIAL 2 ML IVP (15:16)
--- NOTE | 2025-06-24 15:32 | PC.SS ---
Update: Patient on room air. NPO. Receiving mild sedation. CIWA protocol in place. Soft restraints have been applied.
--- NOTE | 2025-06-24 21:37 | EVENTNT_ITS ---
Documentation for date of: 06/24/25 Event Note Event Note: 21:35 Patient appears calm, AO x3, responding to questions and cooperative. Passed swallow screen. Started DIET. Late tray request for dinner - Regular diet x1 Continue Regular diet from breakfast 06/25/2025 - Fabio Nolasco M.D. PGY3 Disclaimer: Minor errors in internal revenue service agent may be present as this note was dictated using voice recognition software.
[2025-06-25] VITALS (18 sets, daily range): BP systolic 86–130; BP diastolic 63–92; PULSE 85–135; RESP 15–27; TEMP 36.4–36.8; O2SAT 95–100; BMI 24.3
[2025-06-25] MEDS: DIAZEPAM INJ 5 MG/ML VIAL 2 ML 10 MG IVP ×2 (04:07→23:32)
[2025-06-25 05:22] LABS: Basophils # (Auto) 0.1 Thou/mm3 (0.0-0.2); Basophils % (Auto) 1 % (0-2.5); Eosinophils # (Auto) 0.1 Thou/mm3 (0.0-0.5); Eosinophils % (Auto) 2 % (0-10); Hematocrit 40.4 % (41.0-53.0); Hemoglobin 13.4 g/dL (13.5-16.0); Immature Granulocytes Auto 0.03 Thou/mm3 (0.00-0.00); Lymphocytes # (Auto) 1.7 Thou/mm3 (1.0-4.8); Lymphocytes % (Auto) 25 % (10-50); Mean Corpuscular HGB Conc 33.2 g/dl (31.0-37.0); Mean Corpuscular Hemoglobin 30.6 pg (25.0-35.0); Mean Corpuscular Volume 92 fL (80-100); Monocytes # (Auto) 0.8 Thou/mm3 (0.0-0.8); Monocytes % (Auto) 12 % (0-12); Neutrophils # (Auto) 3.9 Thou/mm3 (1.8-7.7); Neutrophils % (Auto) 60 % (37-80); Nucleated Red Blood Cell # 0.00 Thou/mm3 (0.00-0.00); Nucleated Red Blood Cell % 0 /100 WBC (0); Platelet Count 84 Thou/mm3 (140-440); RDW Standard Deviation 54.4 fL (35.1-43.9); Red Blood Count 4.38 Miln/mm3 (4.50-5.90); White Blood Count 6.6 Thou/mm3 (3.8-10.6)
[2025-06-25 05:50] LABS: Alanine Aminotransferase 167 U/L (10-49); Albumin, Serum 4.0 gm/dL (3.5-5.0); Albumin/Globulin Ratio 1.3 (1.2-2.2); Alkaline Phosphatase 51 U/L (46-116); Anion Gap 12 (7-16); Aspartate Amino Transferase 134 U/L (0-34); BUN/Creatinine Ratio 6 Ratio (12-20); Bilirubin,Total 1.5 mg/dL (0.3-1.2); Blood Urea Nitrogen 5 mg/dL (9-23); Calcium 9.1 mg/dL (8.3-10.6); Calcium (Corrected) 9.1 mg/dL (8.5-10.1); Carbon Dioxide 24.1 mMol/L (20.0-31.0); Chloride 100 mMol/L (98-107); Creatinine (Component) 0.9 mg/dL (0.6-1.3); Estimated Creatinine Clearance 116.1 mL/min (>60); Globulin 3.1 gm/dL (2.3-3.5); Glucose 91 mg/dL (74-106); Magnesium 1.7 mg/dL (1.6-2.6); Osmolality,Calculated 269 (275-295); Phosphorous 3.9 mg/dL (2.4-5.1); Potassium 3.8 mMol/L (3.4-5.1); Sodium 136 mMol/L (136-145); Total Protein 7.1 gm/dL (5.7-8.2); eGFR > 60 See Note
[2025-06-25] MEDS: ENOXAPARIN SOD INJ 40 MG/0.4 ML SYRINGE SC (08:31)
[2025-06-25] MEDS: THIAMINE INJ 100 MG/ML VIAL 2 ML IVP (08:31)
[2025-06-25] MEDS: FOLIC ACID INJ 1 MG/0.2 ML IVP (08:35)
[2025-06-25] MEDS: GABAPENTIN 300 MG CAPSULE 600 MG PO ×2 (08:35→21:37)
--- NOTE | 2025-06-25 10:37 | ESPR_ITS ---
<Statement entered by Joseph Street MD - 06/25/25 16:59> Patient seen and examined at bedside. I discussed and supervised with the software development intern physician who took care of this patient. I personally saw and examined the patient. I agree with most of the assessment and plan. Patient was able to be weaned off Precedex, resume regular CIWA protocol. Patient's alert and oriented, calm, cooperative during exam today. Continues to have tremors, tachycardia. Continuing treatment with CIWA protocol, gabapentin, Librium. Ordered hepatitis panel due to continued transaminitis, nonreactive. CT scan showed fatty infiltration of liver. Patient stable for downgrade. Plan of care discussed with attending Dr. Key. Joseph Street MD PGY-2 Documentation for date of: 06/25/25 Subjective Subjective Interval history: Patient is 30 yo M PMH of alcohol use disorder, alcohol withdrawal without seizures, methamphetamine use, and left knee tumor since childhood who brought in by EMS for evaluation regarding witnessed tonic-clonic seizure. Patient was witnessed to have tonic-clonic seizure, landing on his back, patient sustained 1 cm gaping laceration to the scalp. ED course: Patient brought to ED by ambulance; was shaking initially and given 2mg Versed and 130mg phenobarbital. As Dr. Oconnell and I were obtaining history & physical, patient had a 2nd witnessed tonic-clonic seizure last more than 1 but less than 5 minutes, with drooling, gurgling, and blood-tinged sputum. Not status epilepticus, as first seizure was at approximately 11:40 (before ED arrival) and second (in ED) was around 1500. Seizure spontaneously resolved and patient had post-ictal state with fever. During history pre-seizure, patient stated that he had consumed 3 tall cans of beer today, normally he drinks 5 tall cans a day; he has been doing this for 10 years. Also endorses previous marijuana use. Mother was at bedside; states that he had been drinking more than 5 tall cans a day, but had not been drinking for the last few days. Patient was to be admitted for management of alcohol withdrawal seizures. Past medical history: PMH of alcohol use disorder, alcohol withdrawal without seizures, methamphetamine use, and left knee tumor since childhood history of acute pancreatitis Past surgical history: No pertinent surgical history Social history: Endorses significant alcohol use disorder (5 tall cans/day for approximately 10 years); also endorses previous marijuana and methamphetamine use Family history: No pertinent family history Interval History 06/24/2025: Patient overnight was upgraded to ICU after being agitated in the setting of alcohol withdrawal, needing to be sedated on precedex. After being sedated, patient's vitals have been stable with bradycardia to ~50 occuring in the morning. Patient was asymptomatic. EKG x2 was ordered showing early repolarization with sinus bradycardia. Troponins were ordered and were negative. Patient was transiently taken off of precedex ggt this morning. Initially he was able to communicate with us verbally, later in the day he became agitated and was put back on the precedex drip and was also given diazepam, haldol to calm him down. Patient has a normocytic anemia of 12.9 hgb, thrombocytopenia 82 and no signs/symptoms of bleeding. Patient's LFT's are down trending. Viral Hepatitis panel was ordered and found to be non reactive. Patient continues to be on CIWA protocol. 06/25/2025: Overnight patient was cooperative and had a regular diet started. Patient has been off of sedation since yesterday evening. This morning patient was resting in bed with sunglasses on, noting he has some tremors/fatigue feeling in his thighs. Patient states he wants to stop drinking alcohol. Patient's vitals were notable for tachycardia this morning. Patient complains of some tremors but denies nausea and vomiting. Patient has not been agitated and continues to be cooperative since yesterday afternoon. Patient made ~3L urine output the last 24 hours. We are continuing CIWA protocol. Patient is being downgraded to med-tele today, no longer needing ICU level of care. Exam Vital Signs Temp Pulse Resp BP Pulse Ox O2 Del Method 98 F 123 H 19 118/88 H 96 Room Air 06/25/25 08:00 06/25/25 10:00 06/25/25 10:00 06/25/25 10:00 06/25/25 10:00 06/25/25 08:00 Narrative Exam General: A&Ox3, in no acute distress, laying in bed Skin: Warm, dry, intact, no obvious rash. HENT: Posterior head wound cleanly dressed; PERRLA, not icteric. External ears normal. No rhinorrhea. Moist mucous membranes. Non-erythematous cyst to the Left of Left eye. Cardiovascular: Tachycardia, regular rhythm, no murmur, +S1/S2. Respiratory: Lungs CTAB GI: Soft, nontender, non-distended. No guarding or rebound tenderness. Extremities: no edema, no cyanosis, no clubbing. Extremity pulses present Neuro: No focal neuro deficits noted Objective Labs 06/25/25 04:15 06/25/25 04:15 Labs: Laboratory Results - last 24 hr 06/24/25 06/25/25 04:30 04:15 WBC 6.6 RBC 4.38 L Hgb 13.4 L Hct 40.4 L MCV 92 MCH 30.6 MCHC 33.2 RDW Std Deviation 54.4 H Plt Count 84 L Neut % (Auto) 60 Lymph % (Auto) 25 [place] % (Auto) 12 Eos % (Auto) 2 Baso % (Auto) 1 Neut # (Auto) 3.9 Lymph # (Auto) 1.7 [place] # (Auto) 0.8 Eos # (Auto) 0.1 Baso # (Auto) 0.1 Immature Gran # (Auto) 0.03 H Absolute Nucleated RBC 0.00 Immature Gran % 1 H Nucleated RBC % 0 Sodium 136 Potassium 3.8 Chloride 100 Carbon Dioxide 24.1 Anion Gap 12 BUN 5 L Creatinine 0.9 Estim Creat Clear Calc 116.1 eGFR > 60 BUN/Creatinine Ratio 6 L Glucose 91 Calculated Osmolality 269 L Calcium 9.1 Corrected Calcium 9.1 Phosphorus 3.9 Magnesium 1.7 Total Bilirubin 1.5 H AST 134 H ALT 167 H Alkaline Phosphatase 51 Total Protein 7.1 Albumin 4.0 Globulin 3.1 Albumin/Globulin Ratio 1.3 Hepatitis A IgM Ab Non Reactive Hep Bs Antigen Non Reactive Hep B Core IgM Ab Non Reactive Hepatitis C Antibody Non Reactive ABG Interpretation ABG results: 06/22/25 18:30 VBG pH 7.47 VBG pCO2 33 L VBG pO2 46 VBG Base Excess 1 Quality Measures Quality Measures VTE prophylaxis Assessment & Plan Assessment Current Active Medications: Generic Name Dose Route Start Last Admin Trade Name Freq PRN Reason Stop Dose Admin Chlordiazepoxide HCl 50 mg 06/23/25 12:00 06/25/25 05:33 Chlordiazepoxide Hcl 25 Mg Capsule PO 06/28/25 11:59 50 mg Q6HR WILMA Administration Diazepam 10 mg 06/22/25 20:51 Diazepam Inj 5 Mg/Ml Vial 2 Ml IVP 06/27/25 18:00 Q5MIN PRN SEIZURES Diazepam 20 mg 06/22/25 20:52 06/24/25 11:12 Diazepam Inj 5 Mg/Ml Vial 2 Ml IVP 06/27/25 16:52 20 mg Q2HR PRN Administration CIWA SCORE 20-25 Diazepam 10 mg 06/22/25 20:52 06/25/25 04:07 Diazepam Inj 5 Mg/Ml Vial 2 Ml IVP 06/27/25 16:52 10 mg Q2HR PRN Administration CIWA SCORE 14-19 Diazepam 5 mg 06/23/25 07:55 06/24/25 15:16 Diazepam Inj 5 Mg/Ml Vial 2 Ml IVP 06/27/25 16:52 5 mg Q2HR PRN Administration CIWA SCORE 8-13 Diazepam 2.5 mg 06/23/25 07:55 06/23/25 15:51 Diazepam Inj 5 Mg/Ml Vial 2 Ml IVP 06/28/25 07:59 2.5 mg Q2HR PRN Administration CIWA 4-7 Enoxaparin Sodium 40 mg 06/23/25 09:00 06/25/25 08:31 Enoxaparin Sod Inj 40 Mg/0.4 Ml Syringe SC 07/07/25 08:59 40 mg QDAY WILMA Administration Folic Acid 1 mg 06/27/25 09:00 Folic Acid 1 Mg Tablet PO 07/27/25 08:59 QDAY WILMA Folic Acid 1 mg 06/24/25 09:00 06/25/25 08:35 Folic Acid Inj 1 Mg/0.2 Ml IVP 06/27/25 08:59 1 mg QDAY WILMA Administration Gabapentin 600 mg 06/24/25 14:15 06/25/25 08:35 Gabapentin 300 Mg Capsule PO 07/24/25 14:14 600 mg BID WILMA Administration Dexmedetomidine/Sodium Chloride 400 mcg in 100 mls @ 3.795 mls/hr 06/24/25 02:53 06/25/25 05:00 Precedex Ivpb IV 07/24/25 00:01 0 mcg/kg/hr .Q24H PRN 0 mls/hr Per PROTOCOL Titration Protocol 0.2 MCG/KG/HR Pantoprazole Sodium 40 mg 06/24/25 00:20 10 08:31 Pantoprazole Inj 40 Mg Vial IVP 07/24/25 00:19 40 mg QDAY WILMA Administration Thiamine HCl 100 mg 06/24/25 09:00 06/25/25 08:31 Thiamine Inj 100 Mg/Ml Vial 2 Ml IVP 06/27/25 08:59 100 mg QDAY WILMA Administration Thiamine HCl 100 mg 06/27/25 09:00 Thiamine 100 Mg Tablet PO 07/27/25 08:59 QDAY WILMA Plan 30-year-old male with past medical history of alcohol use disorder, methamphetamine abuse, and alcohol withdrawal without seizures in the past and submitted to the hospital due to seizures likely secondary to alcohol withdrawal. NEURO #Acute metabolic encephalopathy, resolving Likely due to Alcohol withdrawal. Dx: - Patient came in initially with seizures, generalized tonic-clonic, and received multiple doses of Versed and phenytoin in the ED. - CIWA score was elevated 22-25 - Per Day team assessment, CIWA score this morning was around 7 Rx: - On Precedex gtt (was taken off transiently on 06/24 before becoming agitated again) - continue CIWA protocol : Diazepam 2.5 (CIWA 4-7) Diazepam 5 mg (CIWA 8-13) Diazepam 10 mg (CIWA 14-19) Diazepam 20 mg (he will 20-25) - Phenobarbitol 260mg ivp for breakthrough agitation x1 - Will add Versed gtt if CIWA remains >15 - Stop Librium as high risk of alcohol use on DC - Banana bag with IV Mg, IV and PO Thiamaine, IV and PO Folic acid given. - RAAS goal at -1 overnight, titrate down during the day CVS #Tachycardia #Bradycardia, resoloved Tachycardia likely due to alcohol withdrawal; bradycardia resolved, likely due to sedating medication Dx: -Patient's tachycardia comes and goes the last 24 hours. -EKG x2 ordered; showing early repolarization via j wave morphology -Patient denied having shortness of breath or chest pain or any other symptoms. -Troponins negative. RRx: -Will continue to monitor for signs/symptoms related to ACS. PULM No active problems GI/Hep Transaminitis Fatty liver Hyperbilirubinemia Patient came in with elevated but downtrending LFT's. Patient stated he stopped drinking a few days before admission. Likely due to chronic alcohol use even though classic 2:1 ratio ast/alt not currently present, may have been present closer to the time of most recent alcohol ingestion. Dx: - LFT's continue to be mildly elevated - Abdomen CT : fatty liver infiltration - Hepatitis viral panel non reactive Rx: - Avoid hepatotoxic drugs RENAL No active problems HEME/ONC #Normocytic Anemia Suspecting due to chronic use of alcohol Dx: -Hgb 12.9 10/6, stable RRx: -Continue to monitor hgb and for signs/symptoms of bleeding. #Thromobocytopenia Suspecting due to chronic use of alcohol Dx: -PLT 82 10/6, stable RRx: -Continue to monitor hgb and for signs/symptoms of bleeding. ENDO No active problems ID No active problems ICU Health maintenance: Dispo: ICU -> Med Tele Diet: Regular Diet DVT ppx: Enoxaparin 40mg SC daily GI ppx: Protonix 40mg qD Sedation: No IV lines: 2 pIV Central line: No Arterial line: No Day: no Code status: FULL CODE Patient plan of care was discussed with the attending physician, Dr. Key & senior resident Dr. Urmila JUAREZ PGY-1
--- NOTE | 2025-06-25 13:45 | PC.SS ---
Update: Patient downgraded from ICU to Med Surg on 06-25-25.
[2025-06-25] MEDS: DIAZEPAM INJ 5 MG/ML VIAL 2 ML 2.5 MG IVP (14:14)
--- NOTE | 2025-06-25 14:43 | ESPR_ITS ---
Documentation for date of: 06/25/25 Subjective Subjective Interval history: This is a 30-year-old male who was admitted to the hospital on 22 June for alcohol withdrawal and alcohol related seizures. He was started on phenobarbital as well as some Librium with as needed Versed for CIWA. Yesterday he was noted to be agitated and combative. In the evening the decision was made to transfer him to the ICU to start him on Precedex. Overnight he has remained on Precedex and has done well. Today when the Precedex was held he once again became agitated and combative. Precedex was resumed the patient was given some Haldol along with some Versed. He has had no further seizures since arrival. he currently will wake up and is aggressive and in restraints. He is afebrile with good urinary output. 06/25- no acute overnight events, off precedex, awake alert and appropriate this morning, afebrile Critical Care Note Critical care time (min.): 0 Exam Vital Signs Temp Pulse Resp BP Pulse Ox O2 Del Method 98.2 F 111 H 19 118/86 H 99 Room Air 06/25/25 12:00 06/25/25 12:00 06/25/25 12:00 06/25/25 12:00 06/25/25 12:00 06/25/25 12:00 Narrative Exam Gen- NAD, AAOx3, nl body habitus HEENT- NC/AT, mucosa hydrated, sclera anicteric, EOMI Chest- LCTAB, HRRR, no increase in WOB, tachycardic Abd- s/nt/bs+ Ext- no edema, pulses palp, no clubbing, no mottling, moves all 4 Physical Exam Completion Physical Exam Complete?: Yes 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 Labs 06/25/25 04:15 06/25/25 04:15 Labs: Laboratory Results - last 24 hr 06/25/25 04:15 WBC 6.6 RBC 4.38 L Hgb 13.4 L Hct 40.4 L MCV 92 MCH 30.6 MCHC 33.2 RDW Std Deviation 54.4 H Plt Count 84 L Neut % (Auto) 60 Lymph % (Auto) 25 [place] % (Auto) 12 Eos % (Auto) 2 Baso % (Auto) 1 Neut # (Auto) 3.9 Lymph # (Auto) 1.7 [place] # (Auto) 0.8 Eos # (Auto) 0.1 Baso # (Auto) 0.1 Immature Gran # (Auto) 0.03 H Absolute Nucleated RBC 0.00 Immature Gran % 1 H Nucleated RBC % 0 Sodium 136 Potassium 3.8 Chloride 100 Carbon Dioxide 24.1 Anion Gap 12 BUN 5 L Creatinine 0.9 Estim Creat Clear Calc 116.1 eGFR > 60 BUN/Creatinine Ratio 6 L Glucose 91 Calculated Osmolality 269 L Calcium 9.1 Corrected Calcium 9.1 Phosphorus 3.9 Magnesium 1.7 Total Bilirubin 1.5 H AST 134 H ALT 167 H Alkaline Phosphatase 51 Total Protein 7.1 Albumin 4.0 Globulin 3.1 Albumin/Globulin Ratio 1.3 Assessment & Plan Additional Plan Additional Plan: In summary is a 30-year-old male with alcohol withdrawal who was admitted to the ICU for Precedex drip due to agitation a/p [employer] Alcohol withdrawal-patient is currently on CIWA protocol with as needed diazepam. - off precedex - on librium and gabapentin -> cont to ween down - improved today Acute encephalopathy-in the setting of alcohol withdrawal and likely related to DTs. - improved today and awake, alert and cooperative with exam CV Tachycardia-in the setting of active withdrawal - improving Resp Stable Renal Hypokalemia-replete with IV K GI Transaminitis-patient has elevated LFTs though not in the classic 80s AST greater than ALT distribution for alcoholic hepatitis. Will obtain a acute viral panel. They do appear to be trending down from arrival. His CT from arrival does show diffuse fatty infiltrate throughout the liver with no particular mass or gallstones. Also no stranding noted around the pancreas. - not much improvement today - c/o some epigastric discomfort Endo Stable Heme Thrombocytopenia-likely secondary to alcohol abuse. No active bleeding, no need for transfusion - stable DVT prophylaxis-Lovenox ID Stable Case discussed with ICU team pt appears much improved this AM and able to be downgraded Labs, imaging and records reviewed Approximately 35 minutes required for evaluation, exam, review, intervention, discussion formulation of plan of care for this unfortunate patient with alcohol scale Provider Notation Provider Notation: Although this document has been carefully reviewed, there may still be some phonetic and other typographical errors. These errors are purely grammatical due to imperfections in the software program and should not be construed in any way to compromise the substance of the patient's medical care during this visit. Thank you for the opportunity and privilege in assisting you with this patient's care and management.
[2025-06-25] MEDS: DIAZEPAM INJ 5 MG/ML VIAL 2 ML IVP ×2 (16:01→21:37)
--- NOTE | 2025-06-25 19:34 | ESPR_ITS ---
<Statement entered by Isaias Han MD - 06/25/25 19:49> Patient was seen and evaluated at bedside this morning. No acute overnight events. Patient had been upgraded to the ICU given increased CIWA requiring patient to be on Precedex drip. Patient remained in the ICU for 2 days and was downgraded down to medical floors today as he was deemed stable enough for the medical floors. Patient today was having a CIWA of around 2-4. Will continue with Librium 50 mg every 6 hours on CIWA protocol with diazepam. Will monitor on the Librium tomorrow as patient still has some tremors today, did not have any visual or auditory hallucinations today. Did have some auditory hallucinations the day prior. I have reviewed the note and agree with the resident's assessment & plan with exceptions as below. I have personally reviewed labs, imaging, home meds/prior records, examined the patient, formulated and discussed management plan with my attending Case disclosed with attending Dr. Nu Han PGY2 Disclaimer: Even though this this note was dictated by speech recognition and even though it was carefully revised there may still be minor errors in newspaper editor managing due to voice recognition software. Documentation for date of: 06/25/25 Subjective Subjective Interval history: Pre-downgrade from ICU course Patient is 30 yo M PMH of alcohol use disorder, alcohol withdrawal without seizures, methamphetamine use, initially admitted for witnessed seizures in the context of alcohol withdrawal. Patient initially admitted to inpatient service; on the evening of 06/23/2025 patient was admitted to ICU, for agitation and combativeness in the context of alcohol withdrawal. Patient was started on Precedex; when Precedex was held on 06/24/2025 he became agitated and combative again, requiring Precedex Haldol and Versed. By 06/25/2025 patient was able to be weaned off of Precedex, with patient remaining A&O, calm and cooperative. Patient was then downgraded from ICU to inpatient floors. Assessment on inpatient service Patient was calm and cooperative during examination today; he states he feels good. Repeat CIWA was 3, positive for moderate arm tremors and mild auditory hallucinations that are not frightening to the patient (he hears his parents voices, though his parents are not there). Patient requested to go home; it was explained to him that he cannot due to alcohol withdrawal. Exam Vital Signs Temp Pulse Resp BP Pulse Ox O2 Del Method 97.6 F 128 H 18 125/88 H 98 Room Air 06/25/25 16:00 06/25/25 16:00 06/25/25 16:00 06/25/25 16:00 06/25/25 16:00 06/25/25 16:00 Narrative Exam General: A/O x3, no acute distress, well-nourished, well-developed, tremulous Eyes: PERRL, EOMI. Anicteric, vision grossly intact. Ears: No ear pain, no ear discharge, Hearing grossly intact. Nose: No nasal discharge. Mouth/Throat: Moist mucous membranes, no redness, no lesions. Neck: Neck supple, non-tender, no cervical lymphadenopathy. Lungs: Clear LAMBERTO to auscultation and percussion, No accessory muscle use. Cardio: Normal S1/S2, regular rhythm, no murmurs, no JVD or carotid bruits. Abdomen: Soft, non-tender, no palpable masses, peristalsis present, no guarding or rebound. Extremities: Symmetrical, no significant deformities, no peripheral edema , non-tender, peripheral pulses present. Skin: No rashes, no lesions, warm to touch. Neuro: No focal neurological deficits. Moderate tremor in both arms. Psych: Cooperative, appropriate mood and effect. Mild auditory hallucinations. Objective Labs 06/25/25 04:15 06/25/25 04:15 Labs: Laboratory Results - last 24 hr 06/25/25 04:15 WBC 6.6 RBC 4.38 L Hgb 13.4 L Hct 40.4 L MCV 92 MCH 30.6 MCHC 33.2 RDW Std Deviation 54.4 H Plt Count 84 L Neut % (Auto) 60 Lymph % (Auto) 25 [place] % (Auto) 12 Eos % (Auto) 2 Baso % (Auto) 1 Neut # (Auto) 3.9 Lymph # (Auto) 1.7 [place] # (Auto) 0.8 Eos # (Auto) 0.1 Baso # (Auto) 0.1 Immature Gran # (Auto) 0.03 H Absolute Nucleated RBC 0.00 Immature Gran % 1 H Nucleated RBC % 0 Sodium 136 Potassium 3.8 Chloride 100 Carbon Dioxide 24.1 Anion Gap 12 BUN 5 L Creatinine 0.9 Estim Creat Clear Calc 116.1 eGFR > 60 BUN/Creatinine Ratio 6 L Glucose 91 Calculated Osmolality 269 L Calcium 9.1 Corrected Calcium 9.1 Phosphorus 3.9 Magnesium 1.7 Total Bilirubin 1.5 H AST 134 H ALT 167 H Alkaline Phosphatase 51 Total Protein 7.1 Albumin 4.0 Globulin 3.1 Albumin/Globulin Ratio 1.3 ABG Interpretation ABG results: 06/22/25 18:30 VBG pH 7.47 VBG pCO2 33 L VBG pO2 46 VBG Base Excess 1 Quality Measures Quality Measures VTE prophylaxis Assessment & Plan Assessment Current Active Medications: Generic Name Dose Route Start Last Admin Trade Name Freq PRN Reason Stop Dose Admin Chlordiazepoxide HCl 50 mg 06/23/25 12:00 06/25/25 17:14 Chlordiazepoxide Hcl 25 Mg Capsule PO 06/28/25 11:59 50 mg Q6HR WILMA Administration Diazepam 10 mg 06/22/25 20:51 Diazepam Inj 5 Mg/Ml Vial 2 Ml IVP 06/27/25 18:00 Q5MIN PRN SEIZURES Diazepam 20 mg 06/22/25 20:52 06/24/25 11:12 Diazepam Inj 5 Mg/Ml Vial 2 Ml IVP 06/27/25 16:52 20 mg Q2HR PRN Administration CIWA SCORE 20-25 Diazepam 10 mg 06/22/25 20:52 06/25/25 04:07 Diazepam Inj 5 Mg/Ml Vial 2 Ml IVP 06/27/25 16:52 10 mg Q2HR PRN Administration CIWA SCORE 14-19 Diazepam 5 mg 06/23/25 07:55 06/24/25 15:16 Diazepam Inj 5 Mg/Ml Vial 2 Ml IVP 06/27/25 16:52 5 mg Q2HR PRN Administration CIWA SCORE 8-13 Diazepam 2.5 mg 06/23/25 07:55 06/25/25 14:14 Diazepam Inj 5 Mg/Ml Vial 2 Ml IVP 06/28/25 07:59 2.5 mg Q2HR PRN Administration CIWA 4-7 Enoxaparin Sodium 40 mg 06/23/25 09:00 06/25/25 08:31 Enoxaparin Sod Inj 40 Mg/0.4 Ml Syringe SC 07/07/25 08:59 40 mg QDAY WILMA Administration Folic Acid 1 mg 06/27/25 09:00 Folic Acid 1 Mg Tablet PO 07/27/25 08:59 QDAY WILMA Gabapentin 600 mg 06/24/25 14:15 06/25/25 08:35 Gabapentin 300 Mg Capsule PO 07/24/25 14:14 600 mg BID WILMA Administration Pantoprazole Sodium 40 mg 06/24/25 00:20 06/25/25 08:31 Pantoprazole Inj 40 Mg Vial IVP 07/24/25 00:19 40 mg QDAY WILMA Administration Thiamine HCl 100 mg 06/27/25 09:00 Thiamine 100 Mg Tablet PO 07/27/25 08:59 QDAY WILMA Plan 30-year-old male with past medical history of alcohol use disorder, methamphetamine abuse, and alcohol withdrawal without seizures in the past and submitted to the hospital due to seizures likely secondary to alcohol withdrawal. #Alcohol withdrawal seizures #Alcohol abuse disorder #Alcohol withdrawal #Tachycardia #Transaminitis #Fatty liver #Hyperbilirubinemia Patient initially admitted with multiple witnessed generalized tonic-clonic seizures, and requiring multiple doses of Versed and phenytoin in the ED. CIWA score elevated throughout the day and night of admission up to 22. CIWA score per assessment on downgrade to med/tele was 3 (positive for moderate tremors, and mild auditory hallucinations). CT abdomen pelvis on 06/22/2025 showed diffuse fatty infiltration liver AST and ALT elevated at 244 and 236 on admission 06/22/2025; AST 134 and ALT 167 on 06/25/2025 Total bilirubin 2.2 on 06/23/2025, 1.5 on 06/25/2025 Plan: Diazepam 10 mg IV as needed every 5 minutes for seizures Librium 50 mg every 6 hours CIWA protocol with: ?Diazepam 2.5 (CIWA 4-7) ? Diazepam 5 mg (CIWA 8-13) ?Diazepam 10 mg (CIWA 14-19) ? Diazepam 20 mg (CIWA 20-25) Thiamine 100 mg daily Every 4 hour neurochecks Trend AST/ALT/total bilirubin Disposition: on med-tele for monitoring under CIWA protocol DVT prophylaxis: Lovenox 40 subcutaneous daily GI prophylaxis: Diet: regular Lines: PIV CODE STATUS: Full code This case was discussed with my attending physician, Dr. Judge, and senior resident, Dr. Julien. Javed Waldrop MD-PhD, PGY1 . Attending Provider Attestation/Addendum I have discussed and was present for the essential components of the history, physical examination, diagnosis, and treatment plan with the resident. I agree with the patient's care as documented by the resident and amended herein by me. José Judge DO. Although this document has been carefully reviewed, there may still be some phonetic and other typographical errors. These errors are purely grammatical due to imperfections in the software program and should not be construed in any way to compromise the substance of the patient's medical care during this visit.
--- NOTE | 2025-06-25 22:35 | PC.NURSE ---
MD at bedside after being notified by phone that patient was wanting to leave against medical advice. MD assessed pt's cognition to determine state of mind; pt answered all questions appropriately. Risks explained to pt regarding signing out against medical advice, including seizures, falls, and up to cardiac arrest. Patient verbalized understanding. MD encouraged pt to remain over night and circumstances would be reevaluated in the morning. Pt remained sitting up on the edge of the bed, current contemplating a decision. Avasure remains in place; RN remained at bedside for safety until a decision is made by patient.
--- NOTE | 2025-06-25 22:45 | PC.NURSE ---
Pt requested to ambulate. RN obliged but walker needed to be utilized for safety; pt agreed. Pt ambulated for over 200 ft but unsteady at times. RN accompanied pt the entire time pt ambulated. Pt proceeded to return to bed. Alarm on bed was turned on for safety, and Avasure remains in place. Will continue to monitor.
[2025-06-26] VITALS: BP 111/83; PULSE 107; RESP 18; TEMP 36.3; O2SAT 97
--- NOTE | 2025-06-26 01:10 | PC.NURSE ---
Pt set off bed alarm. Pt was fully chothed in his personal clothing. Now requesting to leave against medical advice. Informed pt that RN would contact MD to have him come and speak with him once again. Pt agreed. In the meantime, all 3 IV sites were discontinued. MD arrived shortly to the room, assessed and spoke with pt once again about the risk and benefits. Pt adamant that he was going to leave. MD signed formed. Telemetry removed. Pt gathered remaining personal belongings and proceeded to leave the room. RN accompanied pt whom ambulated to the exit on first floor.
--- NOTE | 2025-06-26 03:37 | PD.RESEVENT ---
Documentation for date of: 06/26/25 Event Note Event Note: The patient has decided to sign out against medical advice (AMA) after being explained the risks & benefits of leaving before medical clearance/discharge, risks including were explained to the patient. The patient had the opportunity to ask questions about their condition which were answered to their satisfaction; the patient is aware that they may return for further care at any time as needed. Case discussed with my attending Dr. Rajesh Quintero MD PGY-2
== END 2025-06-26 01:15 | disposition left against medical advice (07) | DRG 770 ==
LOC: SERX 15:12 → SERHOLD 06-23 10:07 → S2NX 06-23 10:07 → S2SX 06-24 06:35 → S2NX 06-28 09:57 → S3NX 06-28 09:57
PROVIDERS: Nurse Practitioner Family; Student in an Organized Health Care Education/Training Program; Admitting Provider Student in an Organized Health Care Education/Training Program; Emergency Provider Emergency Medicine; Visit Provider Student in an Organized Health Care Education/Training Program
DX: F10.139 Alcohol abuse with withdrawal, unspecified (principal); S01.81XA Laceration without foreign body of other part of head, initial encounter; R56.9 Unspecified convulsions; R25.1 Tremor, unspecified; K76.0 Fatty (change of) liver, not elsewhere classified; K75.9 Inflammatory liver disease, unspecified; D69.6 Thrombocytopenia, unspecified; K76.89 Other specified diseases of liver; E87.20 Acidosis, unspecified; E87.6 Hypokalemia; G93.41 Metabolic encephalopathy; I47.20 Ventricular tachycardia, unspecified; D64.9 Anemia, unspecified
CPT/HCPCS: 36415; 70450; 71045; 72125; 72131; 74176; 80053; 80061; 80074; 80307; 80320; 81001; 82550; 82803; 83605; 83690; 83735; 84100; 84484; 85025; 85610; 85730; 93005; 93225; 96361; 96365; 96375; 96376; 99285; A4216; J0360; J1200; J1630; J1650; J2250; J2470; J2560; J3360; J3411; J3475; J3480; J3490; J7050; J7120; A9270; G0480

== ENCOUNTER 2025-06-28 15:17 | Emergency (ER) | payer MEDICAID, SELFPAY ==
[2025-06-28] VITALS (9 sets, daily range): BP systolic 124–139; BP diastolic 84–103; PULSE 71–93; RESP 12–18; TEMP 36.8–37.1; O2SAT 95–100; BMI 23.4
--- NOTE | 2025-06-28 15:36 | EKG_ITS ---
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
--- NOTE | 2025-06-28 15:36 | PD.EDRME ---
Rapid Medical Screening Exam E Arrival date/time: 06/28/25 15:17 30-year-old male with a history of alcohol abuse and withdrawals presents to the emergency room with a chief complaint of weakness and wanting help with his alcohol cessation. Patient states his last drink was this morning. I have greeted and performed a focused initial assessment of this patient. A comprehensive ED assessment and evaluation of the patient, analysis of all test results, and completion of the medical decision making process will be conducted by additional ED providers. Chief Complaint: Weakness Time Seen by Provider: 06/28/25 15:32 Vital signs: Vital Signs Temperature 98.3 F 06/28/25 15:30 Pulse Rate 93 06/28/25 15:30 Respiratory Rate 16 06/28/25 15:30 Blood Pressure 132/84 H 06/28/25 15:30 Pulse Oximetry (%) 99 06/28/25 15:30 Oxygen Delivery Method Room Air 06/28/25 15:30 Vital signs reviewed by provider: Yes
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
--- NOTE | 2025-06-28 16:35 | PC.NURSE ---
[facility] phone number
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
[2025-06-28 16:39] LABS: Basophils # (Auto) 0.1 Thou/mm3 (0.0-0.2); Basophils % (Auto) 2 % (0-2.5); Eosinophils # (Auto) 0.2 Thou/mm3 (0.0-0.5); Eosinophils % (Auto) 5 % (0-10); Hematocrit 38.7 % (41.0-53.0); Hemoglobin 12.8 g/dL (13.5-16.0); Immature Granulocytes Auto 0.01 Thou/mm3 (0.00-0.00); Lymphocytes # (Auto) 1.5 Thou/mm3 (1.0-4.8); Lymphocytes % (Auto) 41 % (10-50); Mean Corpuscular HGB Conc 33.1 g/dl (31.0-37.0); Mean Corpuscular Hemoglobin 30.8 pg (25.0-35.0); Mean Corpuscular Volume 93 fL (80-100); Monocytes # (Auto) 0.7 Thou/mm3 (0.0-0.8); Monocytes % (Auto) 19 % (0-12); Neutrophils # (Auto) 1.3 Thou/mm3 (1.8-7.7); Neutrophils % (Auto) 34 % (37-80); Nucleated Red Blood Cell # 0.00 Thou/mm3 (0.00-0.00); Nucleated Red Blood Cell % 0 /100 WBC (0); Platelet Count 207 Thou/mm3 (140-440); RDW Standard Deviation 54.1 fL (35.1-43.9); Red Blood Count 4.16 Miln/mm3 (4.50-5.90); White Blood Count 3.7 Thou/mm3 (3.8-10.6)
[2025-06-28] MEDS: SODIUM CHLORIDE 0.9% 1000 ML 1,000 ML 999 ML IV (16:53)
[2025-06-28] MEDS: FOLIC ACID INJ 1 MG/0.2 ML IVP (16:54)
[2025-06-28] MEDS: THIAMINE INJ 100 MG/ML VIAL 2 ML IVP (16:54)
[2025-06-28 16:55] LABS: INR 1.0 (0.9-1.3); Partial Thromboplastin Time 23.9 Seconds (22.0-36.0); Prothrombin Time 10.3 Seconds (9.0-12.2)
[2025-06-28 17:02] LABS: Alanine Aminotransferase 326 U/L (10-49); Albumin, Serum 4.6 gm/dL (3.5-5.0); Albumin/Globulin Ratio 1.5 (1.2-2.2); Alcohol, Blood Medical 92.2 mg/dL (0-10.0); Alkaline Phosphatase 57 U/L (46-116); Anion Gap 12 (7-16); Aspartate Amino Transferase 322 U/L (0-34); BUN/Creatinine Ratio 6 Ratio (12-20); Bilirubin,Total 0.6 mg/dL (0.3-1.2); Blood Urea Nitrogen < 5 mg/dL (9-23); Calcium 9.5 mg/dL (8.3-10.6); Calcium (Corrected) 9.5 mg/dL (8.5-10.1); Carbon Dioxide 26.3 mMol/L (20.0-31.0); Chloride 106 mMol/L (98-107); Creatinine (Component) 0.8 mg/dL (0.6-1.3); Estimated Creatinine Clearance 135.0 mL/min (>60); Globulin 3.1 gm/dL (2.3-3.5); Glucose 91 mg/dL (74-106); Magnesium 2.2 mg/dL (1.6-2.6); Osmolality,Calculated 284 (275-295); Potassium 4.2 mMol/L (3.4-5.1); Sodium 144 mMol/L (136-145); Total Protein 7.7 gm/dL (5.7-8.2); Troponin I < 0.002 ng/mL (0.0-0.045); eGFR > 60 See Note
[2025-06-28 17:06] LABS: B-Type Natriuretic Peptide < 20 pg/mL (0-100)
[2025-06-28 17:14] LABS: Collection Type, Urine Clean Catch; Squamous Epithelial Cell,Urine 0 /hpf (0-5); WBC,Urine 0 /hpf (0-5)
[2025-06-28 17:23] LABS: Bilirubin,Urine Negative (Negative); Blood,Urine Negative (Negative); Clarity,Urine Clear (Clear/Hazy); Color,Urine Colorless (Lt Yel-Yel); Culture Indicated,Urine Not Indicated; Glucose, Urine Negative (Negative); Ketones,Urine Negative (Negative); Leukocyte Esterase,Urine Negative (Negative); Nitrite,Urine Negative (Negative); PH,Urine 7.0 (5.0-7.0); Protein,Urine Negative (Neg - Trace); RBC,Urine < 1 /hpf (0-3); Specific Gravity,Urine 1.004 (1.001-1.035); Urobilinogen,Urine Negative mg/dL (0.0-1.0)
[2025-06-28] MEDS: Magnesium Sulfate 2 GM Ivpb 2 GM/50 ML BAG IV (17:25)
[2025-06-28 17:32] LABS: Amphetamine/Methamp Scrn,U Negative (Negative); Barbiturate Screen,Urine Positive (Negative); Benzodiazepines Screen,Urine Positive (Negative); Benzoylecgonine Screen, Ur Negative (Negative); Fentanyl Screen,Urine Negative (Negative); Opiate Screen,Urine Negative (Negative); THC Screen,Urine Negative (Negative)
--- NOTE | 2025-06-28 18:24 | EDNOTE_ITS ---
Emergency Room Addendum Addendum Narrative: 1800: Care assumed from Dr. Chou (emergency physician). Past medical, surgical, social and family history reviewed. Vitals and home medications reviewed. Results and treatment plan discussed. I will assume the care of the patient at this time and will follow the patient, pending final disposition. The following addendum documentation note is intended to reflect any pending information, findings, or radiology results not included in the patient?s ini tial chart by the previous shift scribe. Assumed care of this pleasant 30 y/o male presenting with c/o parenthesis of BLE on the setting of chronic alcohol consumption. Clinical exam demonstrates normal motor tone of all 4 extremities, sensation grossly intact, DTR's diminished. Denies lower back pain/radiculopathy. Patient was hydrated with saline and treated with Thiamine, Magnesium, and Folic acid supplements. Patient reports overall subjective improvement. Patient was counseled regarding excessive alcohol consumption and will be prescribed thiamine and multi-vitamin. Discharged to home with precautionary instructions. Final diagnoses include parasthesias and alcohol abuse disorder. I have spoken with the patient and discussed today?s findings, in addition to providing specific details for the plan of care. Questions are answered and there is an agreement with the plan. Re-assessment at the time of disposition demonstrates that the patient is in no acute distress. The patient has remained stable throughout the entire ED visit and is without objective evidence for acute process requiring urgent intervention or hospitalization. The patient is stable for discharge; counseling is provided and documented as above, discussed symptomatic treatment and specific conditions for return.
--- NOTE | 2025-06-28 20:23 | PC.NURSE ---
pt resting quietly. GCS 15. asking for a snack and water. pt given icecraem and water. appears in jose elias distress at this time.
== END 2025-06-28 21:35 | disposition home or self-care (01) ==
PROVIDERS: Nurse Practitioner Family; Emergency Provider Emergency Medicine
DX: R20.2 Paresthesia of skin (principal); F10.10 Alcohol abuse, uncomplicated; Y90.4 Blood alcohol level of 80-99 mg/100 ml
CPT/HCPCS: 36415; 70450; 80053; 80307; 80320; 81001; 83735; 83880; 84484; 85025; 85610; 85730; 93005; 99284; J3411; J3475; J3490; J7030; G0480